=== PATIENT | female | born 1965 | race Caucasian/White ===

== ENCOUNTER 2024-07-25 17:41 | Emergency (ER) | payer SELFPAY ==
--- NOTE | ~2024-07-25 | XR_ITS ---
EXAM: XR hand LT min 3V DATE: 07/25/2024 18:25 HISTORY: HAND TWISTED ON STEERING WHEEL,5TH DIGIT PAIN . COMPARISON: None available. FINDINGS: Osteopenia. No fracture or dislocation. No lytic or blastic lesion. Mild scattered degener ative change. No erosion or periosteal change. Soft tissues within normal limits. IMPRESSION: No acute osseous finding in the left hand. Reviewed, dictated and finalized at location K.
--- OUTSIDE RECORDS SUMMARY | 2024-07-25 17:45 | XMS_ITS | Referral Summary ---
Author Organization [facility] Building A Address [address] [place] [address] [place] [address] Care Team Providers Care Hydrology Technician Name Role Phone Jerry Carroll Primary Care Provider [phone] Kye Oro MD Unavailable [phone] Murray Nava MD Unavailable [phone] Joe Renae Unavailable [phone] Allergies Active Allergy Reactions Criticality Noted Date Comments Amoxicillin Hives Medium Iodinated Contrast Media Hives,Rash Medium Enoxaparin Other (See comments) Low 06/25/2017 red welts Nickel Swelling Medium 06/25/2017 Penicillins Hives,Rash Medium Reaction: Hives, Skin Rash, , Reaction: RASH/HIVES Shrimp Swollen tongue High 06/25/2017 Sulfamethoxazole Hives,Rash Medium Reaction: Hives, Skin Rash, Sulfamethoxazole-Trimethop rim Rash High Reaction: RASH/HIVES, , Tramadol Other (See comments) Low 08/11/2018 Trimethoprim Hives,Rash Reaction: Hives, Skin Rash, Ondansetron Other (See comments) Low 06/25/2017 doesn't work Medications diphenhydrAMINE (BENADRYL) 25 mg capsule take 2 capsule by oral route every 4 - 6 hours as needed 0 0 5 Active gabapentin (NEURONTIN) 300 mg capsuleIndicati ons:took 600 mg last night Take 1 capsule (300 mg total) by mouth 3 (three) times a day Active levothyroxine (SYNTHROID, LEVOTHROID) 100 mcg tablet Take 1 tablet (100 mcg total) by mouth every morning Active estrogens, conjugated, (PREMARIN) 0.625 mg tablet Take 1 tablet (0.625 mg total) by mouth 3 (three) times a week Active niwagrmw-kgyp-z in-folic acid 18-0.4 mg tablet Take 1 tablet by mouth every morning. Active acetaminophen (TYLENOL) 500 mg tablet Take by mouth every 6 (six) hours as needed for pain. Active CHANTIX 1 mg tablet 0 9 Active omeprazole (PriLOSEC) 20 mg capsule Take 1 capsule (20 mg total) by mouth daily Active albuterol HFA (ProAir HFA) 90 mcg/actuation inhalerIndicati ons:Bronchitis Inhale 2 puffs every 4 (four) hours as needed for wheezing or shortness of breath 8.5 g 0 Active prochlorperazin e (COMPAZINE) 10 mg tablet Take 1 tablet (10 mg total) by mouth every 6 (six) hours as needed for nausea or vomiting 30 tablet 1 Active ALPRAZolam (XANAX) 0.5 mg tablet 2 Active glucagon 1 mg kit Active albuterol 1.25 mg/3 mL nebulizer solution 3 Active lisinopriL (PRINIVIL,ZESTR IL) 20 mg tablet Take 1 tablet (20 mg total) by mouth daily 3 Active vitamin B complex capsule Take 1 capsule by mouth daily Active ascorbic acid (vitamin C) 1,000 mg tablet Take 1 tablet (1,000 mg total) by mouth daily Active zinc sulfate 66 mg tablet Take by mouth Active baclofen (LIORESAL) 20 mg tablet Take 1 tablet (20 mg total) by mouth 3 (three) times a day as needed 4 Active dicyclomine (BENTYL) 10 mg capsule TAKE 1 CAPSULE BY MOUTH THREE TIMES DAILY NEEDED 4 Active fluticasone propionate (FLONASE) 50 mcg/actuation nasal spray USE 2 SPRAY(S) IN EACH NOSTRIL ONCE DAILY 4 Active [facility] ranitidine () 150 mg tablet 150 mg by oral route. Active azithromycin (ZITHROMAX) 250 mg tabletIndicatio ns:Upper Respiratory/LUI NT Infection Take 2 tablets the first day, then 1 tablet daily for 4 days. 6 tablet 4 Active Active Problems Problem Noted Date Diagnosed Date S/P cervical spinal fusion 12/04/2022 Cervical myelopathy 11/06/2022 Primary osteoarthritis of right knee 11/13/2020 Overview (11/13/2020): Added automatically from request for surgery [id number] Asthma 02/14/2020 Cholelithiasis with obstruction 02/14/2020 Hiatal hernia 02/14/2020 Pneumonia 02/14/2020 Steatosis of liver 02/14/2020 Type 2 diabetes mellitus wit h hyperglycemia, without long-term current use of insulin 11/21/2017 Assessment & Plan (03/15/2018 11:27 AM DEPLOYMENT ENGINEER): A1c 5.6. Continues with frequent and wide ac/pc excursions with frequent episodes of hypoglycemia. She states that she is only going to take acarbose once daily in am. Agree with eating frequent small amounts of food. Advised follow up with GI and surgeon re: dumping syndrome. In meantime, advised to wear Dexcom at all times. Be sure that low alert is set at 80 and the alert for hypoglycemia is set at 3 mg/dl double arrow in attempt to prevent hypoglycemia more often than having to treat. Assessment & Plan (11/21/2017 6:16 PM CDT): Hba1c was Lab Results Component Value Date HGBA1C 5.5 11/21/2017 today, indicating excellent DM control 1800 calorie, consistent carb diet recommended 30 min daily aerobic and resistance exercise recommended Prevention and treatment of hyypoglcyemia discussed. DEXCOM recommend, due to her frequent hypoglycemia. Dumping syndrome 11/21/2017 Assessment & Plan (11/21/2017 6:07 PM CDT): Causing hypoglycemia Advised on small portion meals, thru the day Avoid carb rich meals, avoid rapid absorption carbs Start Acarbose. Patient has fozia with interior design coordinator next week Chronic obstructive pulmonary disease 03/13/2015 Overview (07/20/2016): Chronic obstructive pulmonary disease, unspecified COPD type Assessment & Plan (07/12/2017 1:02 PM CDT): Previously she has seen Dr. Menon Historical diagnosis of COPD, not in acute exacerbation No PFTs available for review Duonebs q6 as needed Consider starting Spiriva on discharge Assessment & Plan (02/27/2017 11:49 AM DEPLOYMENT ENGINEER): Doing better. Fortunately, Nancy has quit smoking Recs: 1) Complete PFT's 2) Continue PRN albuterol 3) Repeat chest CT in 9 months to followup on mediastinal adenopathy. Pleural effusion 03/13/2015 Overview (07/20/2016): Pleural effusion, left Tobacco dependence syndrome 03/13/2015 Overview (07/20/2016): Tobacco abuse Arthralgia of hip 02/26/2011 Postprocedural pneumothorax Assessment & Plan (07/12/2017 12:58 PM CDT): Resolved Left chest tube removed last night No residual pneumothorax S/P Tommie fundoplication (w ithout gastrostomy tube) procedure Gastroesophageal reflux disease Immunizations Immunization Administration Dates Next Due Influenza, Trivalent, IM (MDV) 01/26/2015 Social History Tobacco Use Types Packs/Day Years Used Date Smoking Tobacco: Former Cigarettes Q uit: 08/2022 Smokeless Tobacco: Never Alcohol Use Standard Drinks/Week Comments Not Currently 0 (1 standard drink = 0.6 oz pur e alcohol) Social Connection and Isolat ion Panel [NHANES] Answer Date Recorded In a typical week, how many times do you talk on the phone with family, friends, or neighbors? More than three times a week 12/05/2022 How often do you get togethe r with friends or relatives? Once a week 12/05/2022 How often do you attend chur ch or presybeterian services? Never 12/05/2022 Do you belong to any clubs o r organizations such as oriental orthodox groups, unions, fraternal or athletic groups, or school groups? No 12/05/2022 How often do you attend meet ings of the clubs or organizations you belong to? Never 12/05/2022 Are you , , di vorced, , never , or living with a partner? 12/05/2022 AUDIT-C Answer Date Recorded Q1: How often do you have a drink containing alcohol? Never 12/04/2022 Q2: How many drinks containi ng alcohol do you have on a typical day when you are drinking? Patient does not drink Q3: How often do you have si x or more drinks on one occasion? Never 12/04/2022 Overall Financial Resource Strain (CARDIA) Answe r Date Recorded How hard is it for you to pa y for the very basics like food, housing, medical care, and heating? Not hard at all 12/05/2022 Hunger Vital Sign Answer Date Recorded Within the past 12 months, y ou worried that your food would run out before you got the money to buy more. Never true 12/06/19 Within the past 12 months, t he food you bought just didn't last and you didn't have money to get more. Never true 12/05/2022 PRAPARE - Transportation Answer Date Re corded Lack of Transportation (Medical) Not on file 12/05/2022 In the past 12 months, has l ack of transportation kept you from meetings, work, or from getting things needed for daily living? No 12/05/2022 Housing Stability Vital Sign Answer Chin e Recorded In the last 12 months, was t here a time when you were not able to pay the mortgage or rent on time? No 12/05/2022 Number of Places Lived in the Last Year Not on f ile 12/05/2022 In the last 12 months, was t here a time when you did not have a steady place to sleep or slept in a halfway (including now)? No 12/05/2022 Personal Safety Answer Date Recorded Have you ever been in or are you currently in a harmful physical or emotional relationship or is someone making you feel afraid or unsafe? 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) Not on file Not on file Not on file Last Filed Vital Signs Vital Sign Reading Time Taken Comments Blood Pressure 104/62 02/06/2024 2:39 PM CDT Pulse 85 02/06/2024 2:39 PM CDT Temperature 36.6 C (97.9 F) 02/06/2024 2:39 PM CDT Respiratory Rate 16 02/06/2024 2:39 PM CDT Oxygen Saturation 95% 02/06/2024 2:39 PM CDT Inhaled Oxygen Concentration - - Weight 64.9 kg (143 lb) 02/06/2024 2:39 PM CDT Height 160 cm (5' 3 ) 02/06/2024 2:39 PM CDT Body Mass Index 25.33 02/06/2024 2:39 PM CDT Plan of Treatment Not on file Medical Devices Implanted Type Area Behaviorist Device Identifier Shelf Expiration Date Model / Serial / Lot [employer] 6195-1-001 Cement Bone Simplex Gentamicin High Viscosity 40gm - [id number] Implanted:Qty: 1 on 11/24/2020 by Kye Oro MD at [facility] Right: Knee [employer] 08/11/2021 6195-1-001 / / [id number] [employer] 6195-1-001 Cement Bone Simplex Gentamicin High Viscosity 40gm - [id number] Implanted:Qty: 1 on 11/24/2020 by Kye Oro MD at [facility] Right: Knee [employer] 08/11/2021 6195-1-001 / / [id number] [employer] [id number] Attune S+ Cement Fix Bearing Knee 3 Baseplate Tibial - [id number] Implanted:Qty: 1 on 11/24/2020 by Kye Oro MD at [facility] Right: Knee [employer] 09/11/2030 [id number] / / [id number] [employer] [id number] Attune Cemented Posterior Stabilize Knee Right 3 Component - [id number] Implanted:Qty: 1 on 11/24/2020 by Kye Oro MD at [facility] Right: Knee [employer] 09/11/2029 [id number] / / [id number] [employer] [id number] Attune 6mm Posterior Stabilize Fix Bearing Knee 3 Insert Tibial - [id number] Implanted:Qty: 1 on 11/24/2020 by Kye Oro MD at [facility] Right: Knee [employer] 01/12/2024 [id number] / / [id number] Musculoskeletal Transplant [id number] 4-30mm Allograft Frozen [id number] Wedge Graft Bone [id number] - [id number] - [id number] Implanted:Qty: 1 on 12/04/2022 by Murray Nava MD at [facility] N/A: Spine Cervical Musculoskeletal Transplant 02/15/2027 [id number] / [id number] / [employer] [id number] Xtend L28 Mm 2 Level Spine; Cervical; Anterior Plate Bone - [id number] Implanted:Qty: 1 on 12/04/2022 by Murray Nava MD at [facility] N/A: Spine Cervical [employer] 161.228 / / [employer] Xtend Od4.2 Mm L14 Mm Variable Angle; Self Tap Spine Screw Bone 161.314 - [id number] Implanted:Qty: 4 on 12/04/2022 by Murray Nava MD at [facility] N/A: Spine Cervical [employer] 161.314 / / Procedures Procedure Name Priority Date/Time Associated Diagnosis Comments HEMOGLOBIN A1C Routine 12/30/2022 10:30 AM CDT EGFR Routine 12/05/2022 6:26 AM CDT LIPID PANEL Routine 05/16/2022 3:41 PM DEPLOYMENT ENGINEER ALBUMIN CREATININE RATIO, URINE Routine 05/16/2022 3:41 PM DEPLOYMENT ENGINEER SCREENING MAMMOGRAM BILATERAL W [place] Schedule Routine, Read Routine (OP Routine) 12/08/2018 5:21 PM CDT Screening mammogram, encounter for SERUM HEPATITIS C AB Routine 02/16/2015 9:14 AM DEPLOYMENT ENGINEER from Last 3 Months or Most Recently Relevant to Health Maintenance Results * Hemoglobin A1c (12/30/2022 10:30 AM CDT) Hgb A1C 5.5 4.0 - 5.6 % [facility] ([place]) Estimated Average Glucose 111 mg/dL [facility] ([place]) Comment: The ADA recommends reporting an estimated Average Glucose (eAG) with all Hemoglobin A1c results using the equation derived from a study of 507 normal and diabetic adults. Minority populations were underrepresented and children were not included. (Diabetes Care 31:1330-7585, 2008). The eAG is not equivalent to a fasting glucose. Blood 12/30/2022 10:3 0 AM CDT 12/30/2022 10:44 AM CDT us Stanley Wright MD LAB BLOOD ORDERABLES Final Re sult [facility] ([place]) 1 [facility] Department [place] [address] * eGFR (12/05/2022 6:26 AM CDT) eGFR 102 mL/min/1. 73 m2 [facility] Comment: Interpretive Data Reference Interval Normal >/= 90 mL/min/1.73m2 Mildly decreased* 60 - 89 mL/min/1.73m2 Mildly to moderately decreased 45 - 59 mL/min/1.73m2 Moderately to severely decreased 30 - 44 mL/min/1.73m2 Severely decreased 15 - 29 mL/min/1.73m2 Kidney Failure < 15 mL/min/1.73m2 *Relative to young adult level Estimated glomerular filtration rate is determined by the 2020 CKD-EPI equation recommended by the National Kidney Foundation (A Unifying Approach to GFR Estimation: Recommendations of the NKF-ASK Task Force on Reassessing the Inclusion of Race in Diagnosing Kidney Disease, JASN 2020). The CKD-EPI equation should not be used for patients with unstable renal function and has not been validated in children and those over 70. Current interpretive data was last reviewed 2021. Blood 12/05/2022 6:26 AM CDT 12/05/2022 7:14 AM CDT us Shayy Smallwood NP LAB BLOOD ORDERABL ES Final Result Performing Organization Address [facility] Co de Phone Number [facility] [address] [facility] Department [place] [address] * Albumin Creatinine Ratio, Urine (05/16/2022 3:41 PM DEPLOYMENT ENGINEER) Albumin Ur <12.0 mg/L [facility] ([place]) Comment: Interpretive Data No reference range established. Current interpretive data was last revised 2018. Testing performed by: [address] [address] Creatinine Ur 48.3 mg/dL [facility] ([place]) Comment: Interpretive Data No reference range established. Current interpretive data was last revised 2018. Testing performed by: [address] [address] Albumin Creatinine Ratio, Ur <25 1 - 29 mg/g [facility] ([place]) Comment:Testing performed by : [address] [address] Urine 05/16/2022 3:41 PM DEPLOYMENT ENGINEER 05/17/2022 9:20 AM DEPLOYMENT ENGINEER us Stanley Wright MD LAB URINE ORDERABLES Final Re sult Performing Organization Address City/[facility]/ZIP Co de Phone Number [facility] ([place]) 1 [facility] Department [place] [address] * Lipid panel (05/16/2022 3:41 PM DEPLOYMENT ENGINEER) Cholesterol 167 30 - 199 mg/dL [facility] ([place]) Comment: Interpretive Data Ages < or = 19 years Acceptable: <170 mg/dL Borderline high: 170-199 mg/dL High: >or= 200 mg/dL Ages > or = 20 years Desirable: <200 mg/dL Borderline high: 200-239 mg/dL High: >or= 240 mg/dL Literature References: 1. Expert Panel on Integrated Guidelines for Cardiovascular Health and Risk Reduction in Children and Adolescents. Pediatrics 2011;128:S213 2. NCEP Expert Panel. Circulation 2004;110:227 Current Interpretive Data was last revised on 2017. Triglycerides 82 <=149 mg/dL [facility] ([place]) Comment: Interpretive Data Ages < or = 9 years Acceptable: <75 mg/dL Borderline high: 75-99 mg/dL High: >or= 100 mg/dL Ages 10 to 20 years Acceptable: <90 mg/dL Borderline high: 90-129 mg/dL High: >or= 130 mg/dL Ages > or = 20 years Desirable: <150 mg/dL Borderline high: 150-199 mg/dL High: 200-499 mg/dL Very high: >or= 499 mg/dL Literature References: 1. Expert Panel on Integrated Guidelines for Cardiovascular Health and Risk Reduction in Children and Adolescents. Pediatrics 2011;128:S213 2. NCEP Expert Panel. Circulation 2004;110:227 Current Interpretive Data was last revised on 2017. HDL 61 >=40 mg/dL [facility]RE[facility] Lopez ([place]) Comment: Interpretive Data Ages < or = 19 years Acceptable: >45 mg/dL Borderline low: 40-45 mg/dL Low: <40 mg/dL Ages > or = 20 years Desirable: >or= 60 mg/dL Low: <40 mg/dL Literature References: 1. Expert Panel on Integrated Guidelines for Cardiovascular Health and Risk Reduction in Children and Adolescents. Pediatrics 2011;128:S213 2. NCEP Expert Panel. Circulation 2003;110:227 Current Interpretive Data was last revised on 2017. LDL, calculated 90 <=129 mg/dL [facility] ([place]) Comment: Interpretive Data Ages < or = 19 years Acceptable: <110 mg/dL Borderline high: 110-129 mg/dL High: >or= 130 mg/dL Ages > or = 20 years Optimal: <100 mg/dL Near optimal: 100-129 mg/dL Borderline high: 130-159 mg/dL High: >160 mg/dL Literature References: 1. Expert Panel on Integrated Guidelines for Cardiovascular Health and Risk Reduction in Children and Adolescents. Pediatrics 2011;128:S213 2. NCEP Expert Panel. Circulation 2003;110:227 Current Interpretive Data was last revised on 2017. Non-HDL Cholesterol 106 mg/dL [facility] ([place]) Comment: Interpretive Data Ages < or = 19 years Acceptable: <120 mg/dL Borderline high: 120-144 mg/dL High: >145 mg/dL Ages > or = 20 years When triglycerides are >200 mg/dL, Non-HDL cholesterol is a secondary target of therapy with treatment goals that are 30 mg/dL greater than the LDL cholesterol target. Literature References: 1. Expert Panel on Integrated Guidelines for Cardiovascular Health and Risk Reduction in Children and Adolescents. Pediatrics 2011;128:S213 2. NCEP Expert Panel. Circulation 2004;110:227 Current Interpretive Data was last revised on 2017. Chol/HDL ratio 3 [facility] ([place]) Blood 05/16/2022 3:41 PM DEPLOYMENT ENGINEER 05/16/2022 4:07 PM DEPLOYMENT ENGINEER us Stanley Wright MD LAB BLOOD ORDERABLES Final Re sult [facility] ([place]) 1 [facility] Department [place] [address] * Screening Mammogram Bilateral W [place] (12/08/2018 5:21 PM CDT) Anatomical Region Laterality Modality Breast Bilateral Mammography 12/09/2018 7:22 AM CDT Addenda Addendum by Maikol Diamond Jr., MD on 12/14/2018 11:49 AM CDT Comparison to previous mammograms at [facility] in [facility] on 05/16/2011 and 11/23/2009 demonstrated a similar pattern of heterogeneously dense parenchyma. Some benign calcifications bilaterally are new since previous mammograms. There are no interval changes suspicious for malignancy. BI-RADS Category 2--benign. Electronically signed by: Maikol Diamond Jr., M.D. Impressions 12/09/2018 7:44 AM CDT 1. NO FINDINGS SUSPICIOUS FOR MALIGNANCY. 2. ANNUAL FOLLOW-UP RECOMMENDED. 3. IF PRIOR MAMMOGRAM IS OBTAINED FOR COMPARISON, AN ADDENDUM REPORT WILL FOLLOW. BI-RADS 2--benign Electronically signed by: Maikol Diamond Jr., M.D. Narrative 12/09/2018 7:44 AM CDT SCREENING MAMMOGRAM BILATERAL W [place]OR HISTORY: screening. Family history of breast cancer (paternal grandmother). Benign left breast biopsy o'clock location. TECHNIQUE: Craniocaudal and mediolateral oblique views of each breast plus exaggerated lateral craniocaudal view of left breast were obtained with bilateral breast tomosynthesis. COMPARISON: None available. Last mammogram in 2013 at [facility] in [facility]; not brought today for comparison. FINDINGS: The breasts are heterogeneously dense. No dominant mass, skin thickening, nipple retraction or suspicious cluster of microcalcifications is seen. Benign calcifications are observed bilaterally. Digital technology was employed plus computer aided detection software (R2) was utilized in interpretation of these images. This facility utilizes a reminder system to notify patient's of yearly mammograms. Csasidy Cuenca MD IMG MAMMO [place] OCEDURES Edited Result - Final * Serum Hepatitis C ab (02/16/2015 9:14 AM DEPLOYMENT ENGINEER) HCV ab Non-Reacti ve Non-Reacti ve HISTORICAL RESULTS Serum 02/16/2015 9:14 AM DEPLOYMENT ENGINEER Historical Provider LAB BLOOD ORDERABLES Oumou corcoran Result HISTORICAL RESULTS from Last 3 Months or Most Recently Relevant to Health Maintenance Insurance [employer] Address: [facility] [address] [place] [address] [employer] [facility] Advance Directives For more information, please contact: [phone] * Full Code (Latest Code Status on File) Date Activated Date Inactivated Comments 12/04/2022 12:30 PM 12/05/2022 9:31 PM * Full Code Date Activated Date Inactivated Comments 08/11/2018 7:01 AM 08/11/2018 2:13 PM * Full Code Date Activated Date Inactivated Comments 07/10/2017 9:53 PM 07/16/2017 4:20 PM * Full Code Date Activated Date Inactivated Comments 05/23/2017 1:24 PM 05/23/2017 5:46 PM Care Teams Hydrology Technician Relationship Specialty Start Date End Date Jerry Carroll PA [address] [place] [address] PCP - General Family Practice 11/13/17 Kye Oro MD [address] [place] [address] Surgeon Orthopedic Surgery 11/24/20 Murray Nava MD [address] [place] [address] Referring Physician Neurosurgery 08/02/22 Joe Renae PA [address] [place] [address] Supervisor Neurosurgery 08/02/22
--- OUTSIDE RECORDS SUMMARY | 2024-07-25 17:45 | XMS_ITS ---
Care Plan - [facility] Created on: July 25, 2024 MILLIE WOOTEN : 1965 Sex: Female Author Organization [facility] Address [address] [place] [address] Phone Care Team Providers Care Coin Machine Operator Name Role Phone JULIA MEJIAS PA-C Primary Care Provider [phone]
--- OUTSIDE RECORDS SUMMARY | 2024-07-25 17:45 | XMS_ITS | Clinical Summary ---
Author Organization [facility] Address [address] [place] [address] Phone Care Team Providers Care Cook Roast Name Role Phone JULIA MEJIAS PA-C Primary Care Provider [phone] Reason for Visit and Chief Complaint The Chief Complaint is: FU IMAGING AND EMG RESULTS Plan of Treatment Pending Tests Order Diagnosis Results Due Ordering P rovider Pain Management CPT - Epidural Steroid Inj Transforaminal, Lumbar or Sacral 1st level Spinal stenosis, lumbar region with neurogenic claudication 10/25/23 MARTY ESCALONA ANP-BC Last Documented On 4 2:19PM ; [facility] Instructions to patient Intervention and counseling on cessation of tobacco use : Patient recieved smoking cessation handout Last Documented On 4 1:16PM ; [facility] Assessments Includes: Assessments from this encounter Findings - 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 [M46.08 - Spinal enthesopathy, sacral and sacrococcygeal region] - Last Documented On 09/25/2023 1:47PM ; [facility] - Lumbar spondylosis with radiculopathy [M47.26 - Other spondylosis with radiculopathy, lumbar region] - Last Documented On 09/25/2023 1:47PM ; [facility] - Lumbar stenosis with neurogenic claudication [M48.062 - Spinal stenosis, lumbar region with neurogenic claudication] - Last Documented On 09/25/2023 1:47PM ; [facility] - Myalgia [M79.18 - Myalgia, other site] - Last Documented On 09/25/2023 1:47PM ; [facility] - Chronic pain syndrome [G89.4 - Chronic pain syndrome] - Last Documented On 09/25/2023 1:47PM ; [facility] Instructions Includes: Instructions from this encounter Instructions to patient Intervention and counseling on cessation of tobacco use : Patient recieved smoking cessation handout Last Documented On 4 1:16PM ; [facility] Medical Equipment - Implanted Devices Includes: Current Devices No Medical Equipment Recorded Medications Includes: Medications discussed during this encounter and other current Medications Current Medications (continue as prescribed) Cyclobenzaprine HCl 10 MG Oral Tablet 09/25/2023 Pro vider: Diagnosis: Last Documented On 09/25/2023 1:16PM By Ruth Ann YOON ; [facility] Vitamin D 50 MCG (1999) Oral Capsule 08/18/2023 P rofredrickder: Diagnosis: Last Documented On 4 11:12AM By Ruth Ann YOON ; [facility] Vitamin C Plus 1000 MG Oral Tablet 08/18/2023 Provid er: Diagnosis: Last Documented On 4 11:11AM By Ruth Ann OYON ; [facility] B Complex Oral Capsule 08/18/2023 Provider: Diagnosis: Last Documented On 4 11:10AM By Ruth Ann YOON ; [facility] Multivitamin Oral Tablet 08/18/2023 Provider: Diagnosis: Last Documented On 4 11:10AM By Ruth Ann YOON ; [facility] Estradiol 1 MG Oral Tablet 08/18/2023 Provider: Diagnosis: TWICE A WEEK Last Documented On 4 11:08AM By Ruth Ann YOON ; [facility] Benadryl Allergy 25 MG Oral Tablet 08/18/2023 Provid er: Diagnosis: Last Documented On 4 11:06AM By Ruth Ann YOON ; [facility] Tylenol Extra Strength 500 MG Oral Tablet 08/18/2023 Provider: Diagnosis: Last Documented On 4 11:07AM By Ruth Ann YOON ; [facility] Ibuprofen 200 MG Oral Tablet 08/18/2023 Provider : Diagnosis: Last Documented On 4 11:07AM By Ruth Ann YOON ; [facility] Adult Aspirin Regimen 81 MG Oral Tablet Delayed Releas e 08/18/2023 Provider: Diagnosis: Last Documented On 4 11:08AM By Ruth Ann YOON ; [facility] Fluticasone Propionate 50 MC G/ACT Nasal Suspension 07/22/2023 Provider: JULIA KAPLAN Diagnosis: Last Documented On 4 11:04AM By Ruth Ann YOON ; [facility] Albuterol Sulfate HFA 108 (9 0 Base) MCG/ACT Inhalation Aerosol Solution 07/22/2023 Provider: JULIA MEJIAS PA-C Diagnosis: Last Documented On 4 11:04AM By Ruth Ann YOON ; [facility] Levothyroxine Sodium 100 MCG Oral Tablet 07/12/2023 Provider: JULIA MEJIAS PA-C Diagnosis: Last Documented On 4 11:04AM By Ruth Ann YOON ; [facility] Lisinopril 40 MG Oral Tablet 04/16/2023 Provider: JULIA MEJIAS PA-C Diagnosis: Last Documented On 4 11:05AM By Ruth Ann YOON ; [facility] Dicyclomine HCl 10 MG Oral Capsule 04/16/2023 Provid er: JULIA MEJIAS PA-C Diagnosis: Last Documented On 4 11:05AM By Ruth Ann YOON ; [facility] Gabapentin 300 MG Oral Capsule 04/15/2023 Provider: JULIA MEJIAS PA-C Diagnosis: Last Documented On 4 11:05AM By Ruth Ann YOON ; [facility] Medications Administered Includes: Administered Medications from this encounter No Administered Medications Recorded Vital Signs Includes: Vital Signs from this encounter Vital Name 09/25/2023 01:12P Blood Pressure Sitting R 126/62 Pulse Rate-Sitting (bpm) 81 Temp-Temporal 96.4 Height (in) 63.75 Weight (lb) 140 Body Mass Index 24.2 Body Surface Area (m2) 1.7 Pain Level 3 Oxygen Saturation (%) 98 Last Documented: On 09/25/2023 1:47PM ; [facility] Results Includes: Results discussed during this encounter No Results Recorded For Specified Dates History of Present Illness Includes: History of Present Illness from this encounter HPI - Allergy list reviewed - Problem list reviewed - Medication reconciliation performed - Medication list reviewed - Prescription Drug Monitoring Program website checked. - Last dose of medication? - Pain is continuous - Pain in PM - Primary pain duration Lower back and bilateral legs - Pain is burning - Pain is shooting - Pain is sharp - Pain is described as tingling - Pain is deep - Pain is stinging - Pain is like pins/needles - Relieved by medication - Relieved by repositioning - Relieved by touch/rub - Pain aggravated getting in/out of car - Pain aggravated lying down - Pain aggravated sitting - Pain aggravated standing - Pain aggravated by walking - Pain aggravated lifting - Neck pain radiating to both sides - Pain radiates in right calf/dyson - Pain radiates in right foot Discussion: Patient returns in follow-up for low back pain with radiculopathy and to review imaging. She describes low back pain with radiating pain and numbness to the entire left lower extremity extending to the foot as well as numbness and tingling in the right foot. Symptoms worsen with standing and walking. She was referred by a surgeon for evaluation prior to surgery. Recent EMG indicates acute upon chronic L5 radiculopathy on the right. MRI the pelvis was also ordered related to findings on lumbar MRI. No acute findings noted. She continues home exercises as tolerated, but this is often painful and not tolerated. We discussed imaging, testing and recommendation of lumbar epidural. She would like to proceed. Questions elicited and answered. Patient is a 58-year-old female referred by neurosurgery for evaluation and treatment of lumbar radiculopathy symptoms. She complains of low back pain with pain, numbness and tingling to the right dyson and calf region extending into the medial foot in great toe. There is also radicular pain to the left lower extremity in a multi-dermatomal pattern. Symptoms have been present for greater than 12 months. She was seen by a chiropractor within the last 6 months, with no change in symptoms. Patient evaluated by neurosurgery. At that time, they recommended treatment of cervical stenosis before any lumbar treatment. She reports near resolution of cervical symptoms. She does have the ongoing lumbar complaints. She has not done physical therapy and questions this overall as very little activity as tolerated. She has had other conservative treatment including anti-inflammatories, activity modification and gabapentin. Currently, she takes gabapentin 600 mg at night. We discussed converting this to pregabalin twice daily for ongoing symptoms. She is hesitant to switch medications at this point. She experienced a fall approximately 2 months ago. She describes her left leg going out and falling towards her but ox. She did lose consciousness at that time. She was evaluated by neurosurgery at follow-up after this fall. X-rays of the cervical, thoracic and lumbar spine were done. An MRI of the lumbar spine was ordered at that time. Lumbar MRI makes note of edema changes in the sacral region and recommends sacral MRI if clinically warranted. She is considerably point tender over the sacrum, more to the left. There is tenderness in the SI joints bilaterally. She does feel symptoms overall increased and changed to some degree after the fall. Recommending x-rays of the sacrum as well as a dedicated MRI of the sacrum to evaluate for sacral fracture. Based on findings, we will then further discuss treatment options. Imaging: All relevant imaging available was personally reviewed with the patient today with the following tests and results noted: MRI L spine May: Schmorl's nodes of inferior endplate at L3. L3-4 through L5-S1 facet joint variable extent stir hyper intense signal can be seen with synovitis. Bilateral facet arthropathy at L2-3. L3-4 disc bulge and small central right neural foraminal disc protrusion with annular fissure. Thickened ligamentum flavum and facet arthropathy and trace facet joint effusion's. Mild spinal canal stenosis. Mild to moderate right and mild left neural foraminal stenosis. Disc bulge was superimposed central through right and left neural foraminal disc protrusion and annular fissure. Thickened ligamentum flavum with facet arthropathy. Mild to moderate spinal canal stenosis. Lateral recess effacement on both sides. Moderate right and mild to moderate left neural foraminal narrowing. Disc and facet arthropathy abutting the L4 nerve roots. L5-S1 disc bulge with bilateral facet arthropathy. Sacrum inferior sacral T-1 hypo intense, stir hyper intense signal new compared to 08/23/22 MRI. Request correlation with point tenderness and need for dedicated sacral MRI as clinically necessary X-rays C-spine, reading with in neurosurgeon note 05/29/23: postsurgical changes of C6 Judi. ectomy with anterior instrument fusion C3-4 and C4-6. Motion at C5-6 with widening and flexion and narrowing of inter-spinous distance and extension. There is a transitional see to-3 degenerative disc disease. Unchanged soft tissue swelling X-ray L spine within neurosurgeon note 05/29/23: mild retro thesis L2 on L3 and L3 on L4 with anterior list thesis of L4 on L5. With flexion, retro thesis is reduced with exacerbation of L4-5 anterolisthesis. With extension minimal no significant change in L2-3 and L3-4 retro thesis. L4-5 anterolisthesis is reduced. Mild multilevel degenerative disc disease. T-spine 05/29/23 within surgeon note: thoracic dextroscoliosis centered at T8-9. Bilateral hip arthroplasty NCV/EMG 09/04/23: abnormal study consistent with subacute on chronic right L5 radiculopathy. MRI pelvis 08/26/23: mild degenerative disc disease in the lower lumbar spine with bilateral neural foraminal narrowing incompletely evaluated Social History Description Last Updated Current smoker 09/25/2023 Last Documented On 4 1:47PM ; [facility] No consumption of alcohol 09/25/2023 Last Documented On 4 1:47PM ; [facility] Not using drugs 09/25/2023 Last Documented On 4 1:47PM ; [facility] Difficulty walking 08/18/2023 Last Documented On 4 1:07PM ; [facility] Smoking packs of cigarettes per day 1.5 08/18/2023 Last Documented On 4 1:07PM ; [facility] Smoking Status Unknown Procedures and Surgical History Includes: Procedures from this encounter Procedures Code Diagnosis Performing Provider Service Location Service Date CLINIC VISIT [id number] Spinal stenosis, lumbar region with neurogenic claudication, Spinal enthesopathy, sacral and sacrococcygeal region, Other spondylosis with radiculopathy, lumbar region, Chronic pain syndrome MARTY ESCALONA ANP-BC [facility] 09/25/2023 Last Documented On 4 2:55PM ; [facility] intervention and counseling on cessation of tobacco use : Patient recieved smoking cessation handout 4000F Last Documented On 4 1:16PM ; [facility] use of tobacco assessment performed 1000F Last Documented On 4 1:16PM ; [facility] review of medications documented 1160F Last Documented On 4 1:16PM ; [facility] assessment of suicide risk performed Last Documented On 4 1:07PM ; [facility] screening for adult depression: impressi on and score five Last Documented On 4 1:07PM ; [facility] standardized depression screening: posit jacob for symptoms Last Documented On 4 1:07PM ; [facility] Clinical summary provided to patient ~ Patient understands and agrees with treatment plan. Questions answered Last Documented On 4 1:07PM ; [facility] SOAPP-R: total score 14 Last Documented On 4 1:07PM ; [facility] Surgical History Last Updated No Pacemaker 09/25/2023 Last Documented On 4 1:47PM ; [facility] Medical History Includes: Medical History addressed during this encounter Description Last Updated No Pain Pump 09/25/2023 Last Documented On 4 1:47PM ; [facility] No Spinal cord stimulator 09/25/2023 Last Documented On 4 1:47PM ; 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 Currently wearing eyeglasses 08/18/2023 Last Documented On 4 1:07PM ; [facility] Moderate to severe pain 08/18/2023 Last Documented On 4 1:07PM ; [facility] Please list all illnesses/co nditions you have been diagnosed with: [place] hernia repaired, dmt2,copd, emphysema, hypothyroid, htn, 08/18/2023 Last Documented On 4 1:07PM ; [facility] Please list all surgeries: P ig skin graft for diaphragmatic, repair of torn diaphragmatic, hysterectomy, appendectomy iraj hip prosthesis, rt knee replacement. rt inguinal hernia repair, appe, abisai, neck surgeryx2 , rt carpule tunnel, 08/18/2023 Last Documented On 4 1:07PM ; [facility] X-rays [facility] 4 Last Documented On 4 1:07PM ; [facility] Family History Includes: Family History addressed during this encounter Description Last Updated Family history [use for free text] 09/24 Last Documented On 4 1:47PM ; [facility] Family history of Bleeding disorder 09/12 Last Documented On 4 1:47PM ; [facility] Family history of kidney disease 024 Last Documented On 4 1:47PM ; [facility] Family history of stroke/paralysis 09/24 Last Documented On 4 1:47PM ; [facility] Fraternal history of family history of i schemic heart disease 09/25/2023 Last Documented On 4 1:47PM ; [facility] Fraternal history of stroke/paralysis Last Documented On 4 1:47PM ; [facility] Maternal history of Arthritis 09/25/2023 Last Documented On 4 1:47PM ; [facility] Other family history , please specify: 0 09/25/2023 Last Documented On 4 1:47PM ; [facility] Paternal history of family history of is chemic heart disease 09/25/2023 Last Documented On 4 1:47PM ; [facility] Paternal history of family history of ki dney disease 09/25/2023 Last Documented On 4 1:47PM ; [facility] Paternal history of stroke/paralysis Last Documented On 4 1:47PM ; [facility] Reported family history of seizures 09/12 Last Documented On 4 1:47PM ; [facility] Sororal history of Arthritis 09/25/2023 Last Documented On 4 1:47PM ; [facility] Sororal history of Bleeding disorder Last Documented On 4 1:47PM ; [facility] Review of Systems Includes: Review of Systems from this encounter Systemic: No systemic symptoms other than noted. Fatigue and recent weight change. Head: No head symptoms other then noted. Headache chronic/recurring. Neck: No neck pain. Otolaryngeal: No otolaryngeal symptoms other than noted. Cardiovascular: No chest pain or discomfort. Palpitations. Pulmonary: No dyspnea. Chronic cough, hemoptysis, and wheezing. Gastrointestinal: Appetite. No nausea. Nausea, abdominal pain, bowel movement frequency has recently changed, and diarrhea throughout the day. No constipation. Genitourinary: No urinary loss of control. Endocrine: Temperature intolerance, muscle weakness, and Weakness. Hematologic: No easy bleeding and no tendency for easy bruising. Musculoskeletal: Back pain, localized soft tissue swelling in the foot, and muscle cramps. Neurological: Dizziness and fainting. No fainting passing out with needles or medical procedures and no motor disturbances. Falls and numbness. Psychological: No psychological symptoms other than noted. Skin: No skin symptoms other than noted. Dry skin. Mental Status Includes: Mental Status from this encounter No Mental Status Recorded Functional Status Includes: Functional Status from this encounter No Functional Status Recorded Physical Exam Includes: Physical Exam from this encounter Allergies Includes: Active Allergies Substance Type Reaction Onset Date Resolved Date Statu s Zofran Allergy 08/18/2023 Active Last Documented On 4 1:16PM ; [facility] traMADol HCl Allergy 08/18/2023 Active Last Documented On 4 1:16PM ; [facility] Sulfamethoxazole-Trimethoprim Allergy 08/18/2023 Active Last Documented On 4 1:16PM ; [facility] SHRIMP Allergy 08/18/2023 Active Last Documented On 4 1:16PM ; [facility] Penicillins Allergy 08/18/2023 Active Last Documented On 4 1:16PM ; [facility] NICKEL Allergy 08/18/2023 Active Last Documented On 4 1:16PM ; [facility] Lovenox Allergy 08/18/2023 Active Last Documented On 4 1:16PM ; [facility] Iodinated contrast media Allergy 08/18/2023 Active Last Documented On 4 1:16PM ; [facility] Amoxicillin Allergy 08/18/2023 Active Last Documented On 4 1:16PM ; [facility] Encounters Encounter Provider Location Date Check-In Time Check-Out Time Diagnosis PAIN MANAGEMENT FOLLOW [facility] 1:09PM 1:41PM Chronic Pain Syndrome,Spinal Stenosis Lumbar with Neurogenic Claudication,Spin al Enthesopathy of Sacral and Sacrococcygeal Region,Spondylosi s with Radiculopathy Lumbar Region,Myalgia , Other Site (M79.18) Insurance Includes: Active Insurance Policies Plan Name Member ID Group # Subscriber Relationship Effect jacob Dates 1 - [employer] [place] [employer] [id number] MILLIE Onofre JE Self Clinical Notes Includes: Clinical Notes from this encounter * Progress note Date Encounter Last Documented by 09/25/2023 PAIN MANAGEMENT FOLLOW UP Last d ocumented on 09/25/2023; 1:47 PM, MARTY BIRD; [facility] Chief Complaint The Chief Complaint is: FU IMAGING AND EMG RESULTS. History of Present Illness - Allergy list reviewed - Problem list reviewed - Medication reconciliation performed - Medication list reviewed - Prescription Drug Monitoring Program website checked. - Last dose of medication? - Pain is continuous - Pain in PM - Primary pain duration Lower back and bilateral legs - Pain is burning - Pain is shooting - Pain is sharp - Pain is described as tingling - Pain is deep - Pain is stinging - Pain is like pins/needles - Relieved by medication - Relieved by repositioning - Relieved by touch/rub - Pain aggravated getting in/out of car - Pain aggravated lying down - Pain aggravated sitting - Pain aggravated standing - Pain aggravated by walking - Pain aggravated lifting - Neck pain radiating to both sides - Pain radiates in right calf/dyson - Pain radiates in right foot Discussion: Patient returns in follow-up for low back pain with radiculopathy and to review imaging. She describes low back pain with radiating pain and numbness to the entire left lower extremity extending to the foot as well as numbness and tingling in the right foot. Symptoms worsen with standing and walking. She was referred by a surgeon for evaluation prior to surgery. Recent EMG indicates acute upon chronic L5 radiculopathy on the right. MRI the pelvis was also ordered related to findings on lumbar MRI. No acute findings noted. She continues home exercises as tolerated, but this is often painful and not tolerated. We discussed imaging, testing and recommendation of lumbar epidural. She would like to proceed. Questions elicited and answered. Patient is a 58-year-old female referred by neurosurgery for evaluation and treatment of lumbar radiculopathy symptoms. She complains of low back pain with pain, numbness and tingling to the right dyson and calf region extending into the medial foot in great toe. There is also radicular pain to the left lower extremity in a multi-dermatomal pattern. Symptoms have been present for greater than 12 months. She was seen by a chiropractor within the last 6 months, with no change in symptoms. Patient evaluated by neurosurgery. At that time, they recommended treatment of cervical stenosis before any lumbar treatment. She reports near resolution of cervical symptoms. She does have the ongoing lumbar complaints. She has not done physical therapy and questions this overall as very little activity as tolerated. She has had other conservative treatment including anti-inflammatories, activity modification and gabapentin. Currently, she takes gabapentin 600 mg at night. We discussed converting this to pregabalin twice daily for ongoing symptoms. She is hesitant to switch medications at this point. She experienced a fall approximately 2 months ago. She describes her left leg going out and falling towards her but ox. She did lose consciousness at that time. She was evaluated by neurosurgery at follow-up after this fall. X-rays of the cervical, thoracic and lumbar spine were done. An MRI of the lumbar spine was ordered at that time. Lumbar MRI makes note of edema changes in the sacral region and recommends sacral MRI if clinically warranted. She is considerably point tender over the sacrum, more to the left. There is tenderness in the SI joints bilaterally. She does feel symptoms overall increased and changed to some degree after the fall. Recommending x-rays of the sacrum as well as a dedicated MRI of the sacrum to evaluate for sacral fracture. Based on findings, we will then further discuss treatment options. Imaging: All relevant imaging available was personally reviewed with the patient today with the following tests and results noted: MRI L spine May: Schmorl's nodes of inferior endplate at L3. L3-4 through L5-S1 facet joint variable extent stir hyper intense signal can be seen with synovitis. Bilateral facet arthropathy at L2-3. L3-4 disc bulge and small central right neural foraminal disc protrusion with annular fissure. Thickened ligamentum flavum and facet arthropathy and trace facet joint effusion's. Mild spinal canal stenosis. Mild to moderate right and mild left neural foraminal stenosis. Disc bulge was superimposed central through right and left neural foraminal disc protrusion and annular fissure. Thickened ligamentum flavum with facet arthropathy. Mild to moderate spinal canal stenosis. Lateral recess effacement on both sides. Moderate right and mild to moderate left neural foraminal narrowing. Disc and facet arthropathy abutting the L4 nerve roots. L5-S1 disc bulge with bilateral facet arthropathy. Sacrum inferior sacral T-1 hypo intense, stir hyper intense signal new compared to 08/23/22 MRI. Request correlation with point tenderness and need for dedicated sacral MRI as clinically necessary X-rays C-spine, reading with in neurosurgeon note 05/29/23: postsurgical changes of C6 Judi. ectomy with anterior instrument fusion C3-4 and C4-6. Motion at C5-6 with widening and flexion and narrowing of inter-spinous distance and extension. There is a transitional see to-3 degenerative disc disease. Unchanged soft tissue swelling X-ray L spine within neurosurgeon note 05/29/23: mild retro thesis L2 on L3 and L3 on L4 with anterior list thesis of L4 on L5. With flexion, retro thesis is reduced with exacerbation of L4-5 anterolisthesis. With extension minimal no significant change in L2-3 and L3-4 retro thesis. L4-5 anterolisthesis is reduced. Mild multilevel degenerative disc disease. T-spine 05/29/23 within surgeon note: thoracic dextroscoliosis centered at T8-9. Bilateral hip arthroplasty NCV/EMG 09/04/23: abnormal study consistent with subacute on chronic right L5 radiculopathy. 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 rt inguinal hernia repair, appe, abisai, neck surgeryx2 , rt carpule tunnel, Medical: Currently wearing eyeglasses and orthopedic history Left Knee Score mild pain Moderate to severe pain. No Spinal cord stimulator and no Pain Pump. Surgical / Procedural: No Pacemaker. Tests: X-rays [facility], [facility] and CT[facility]MRI [facility]. Current Medication - Adult Aspirin Regimen 81 MG Oral Tablet Delayed Release One tablet daily 0 days, 0 refills - Albuterol Sulfate HFA 108 (90 Base) MCG/ACT Inhalation Aerosol Solution as directed 17 days, 0 refills - B Complex Oral Capsule One tablet daily 0 days, 0 refills - Benadryl Allergy 25 MG Oral Tablet One tablet at bed time 0 days, 0 refills - [facility] Ibuprofen 200 MG Oral Tablet 3 twice a day 0 days, 0 refills - Cyclobenzaprine HCl 10 MG Oral Tablet as needed 0 days, 0 refills - Dicyclomine HCl 10 MG Oral Capsule 2 once a day 90 days, 0 refills - Estradiol 1 MG Oral Tablet as directed TWICE A WEEK, 0 days, 0 refills - Fluticasone Propionate 50 MCG/ACT Nasal Suspension as directed 30 days, 0 refills - Gabapentin 300 MG Oral Capsule One tablet at bed time 90 days, 0 refills - Levothyroxine Sodium 100 MCG Oral Tablet One tablet daily 90 days, 0 refills - Lisinopril 40 MG Oral Tablet One tablet daily 90 days, 0 refills - Multivitamin Oral Tablet One tablet daily 0 days, 0 refills - Tylenol Extra Strength 500 MG Oral Tablet 2 three times a day 0 days, 0 refills - Vitamin C Plus 1000 MG Oral Tablet One tablet daily 0 days, 0 refills - Vitamin D 50 MCG (2000 UT) Oral Capsule One tablet daily 0 days, 0 refills Social History Difficulty walking. Tobacco use: Cigarette smoking smoking packs of cigarettes per day 1.5. Alcohol: No consumption of alcohol. Drug Use: Not using drugs. Allergies - Amoxicillin - Iodinated contrast media - Lovenox - NICKEL - Penicillins - SHRIMP - Sulfamethoxazole-Trimethoprim - traMADol HCl - Zofran Family History Stroke/paralysis Other family history , please specify: Reported family history of seizures Kidney disease Bleeding disorder family history [use for free text] Paternal: Stroke/paralysis Ischemic heart disease Kidney disease Maternal: Arthritis Fraternal: Stroke/paralysis Ischemic heart disease Sororal: Arthritis Bleeding disorder Review Of Systems Systemic: No systemic symptoms other than noted. Fatigue and recent weight change. Head: No head symptoms other then noted. Headache chronic/recurring. Neck: No neck pain. Otolaryngeal: No otolaryngeal symptoms other than noted. Cardiovascular: No chest pain or discomfort. Palpitations. Pulmonary: No dyspnea. Chronic cough, hemoptysis, and wheezing. Gastrointestinal: Appetite. No nausea. Nausea, abdominal pain, bowel movement frequency has recently changed, and diarrhea throughout the day. No constipation. Genitourinary: No urinary loss of control. Endocrine: Temperature intolerance, muscle weakness, and Weakness. Hematologic: No easy bleeding and no tendency for easy bruising. Musculoskeletal: Back pain, localized soft tissue swelling in the foot, and muscle cramps. Neurological: Dizziness and fainting. No fainting passing out with needles or medical procedures and no motor disturbances. Falls and numbness. Psychological: No psychological symptoms other than noted. Skin: No skin symptoms other than noted. Dry skin. Physical Findings - Vitals taken 09/25/2023 01:12 pm BP-Sitting R 126/62 mmHg Pulse Rate-Sitting 81 bpm Temp-Temporal 96.4 F Height 63.75 in Weight 140 lbs Body Mass Index 24.2 kg/m2 Pain Level 3 Pain Level Note LOW BACK AND RIGHT FOOT, LEFT HIP 6/10 with activity Oxygen Saturation 98 % Musculoskeletal System: General/bilateral: Musculoskeletal Scales: Value Lumbar oswestry score 60 Psychiatric: Psychiatric: Value PHQ9 score: 5 Constitutional: Well developed. Well nourished. In no acute distress. HEENT: NC/AT. Anicteric. Clear Conjunctiva. PERRLA. CVS: No peripheral edema. Peripheral pulses palpable in all extremities. Pulmonary: Normal chest expansion bilaterally. Spine/MSK: tenderness over sacral region, more to the left. SI joint tenderness bilaterally. Mild lumbar facet tenderness. Positive SLR on the left, causing increased paresthesia symptoms. Gait: Not antalgic. No steppage gait. No Trendelenburg gait. No circumspected gait pattern. Heel walk normal. Toe walk normal. Tandem gait normal. Neuro: Awake. Alert. Oriented x3. DTR's intact in all extremities. DTR's equal in all extremities. Hypoesthesia right L4 dermatome No motor deficit. Psych: No apparent distress. Mood normal. Affect normal. No pain behaviors. Skin: No rash. Normal pigmentation. Normal temperature Tests Educational Testing: Questionnaires PHQ-9: Value SOAPP-R: total score 14 Assessment - 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 [M46.08 - Spinal enthesopathy, sacral and sacrococcygeal region] - Lumbar spondylosis with radiculopathy [M47.26 - Other spondylosis with radiculopathy, lumbar region] - Lumbar stenosis with neurogenic claudication [M48.062 - Spinal stenosis, lumbar region with neurogenic claudication] - Myalgia [M79.18 - Myalgia, other site] - Chronic pain syndrome [G89.4 - Chronic pain syndrome] Therapy - Intervention and counseling on cessation of tobacco use: Patient recieved smoking cessation handout. - Assessment of suicide risk performed - Clinical summary provided to patient Patient understands and agrees with treatment plan. Questions answered. Discussed Based on MRI findings and ongoing point tenderness over the sacral region, recommend dedicated MRI of the sacrum to evaluate for fracture. Will consider lumbar epidural after imaging is complete. Discussed switching gabapentin to pregabalin, patient declines at this time. Follow-up after imaging Plan StartCited - Spinal stenosis, lumbar region with neurogenic claudication Pain Management CPT/Epidural Steroid Inj: Transforaminal, Lumbar or Sacral 1st level Instructions: bilateral L4-5 TFESI EndCited Practice Management Use of tobacco assessment performed Review of medications documented; Standardized depression screening: positive for symptoms and for adult impression and score five. A total of [45 ] minutes were spent on this patient's evaluation, as above, with greater than 50% of this time spent in direct [id number] counseling and coordination of care. Results of this interaction were communicated directly to the patient's referring and/or primary care provider. Multiple documents have been reviewed today in conjunction with her evaluation including online prescription monitoring database, laboratory data, imaging studies, previous specialist provider notes and primary care provider notes. For all patients on acute or chronic opioids, ongoing need for opioid analgesia is assessed at each visit with consideration of discontinuation or wean to lowest effective dose when possible and appropriate. Contents of this document have been edited for correctness, but may be subject to typographical or coil tester errors. Verify all diagnoses, medications, dosages, and patient instructions with patient and/or the originator of this document. Health Reminders - Assess BMI satisfied 09/25/2023. - Assess Tobacco Use satisfied 09/25/2023. - Depression Screening satisfied 09/25/2023. - Follow up plan for Depression Screening satisfied 09/25/2023. - Smoking & Tobacco Cessation Intervention and Counseling satisfied 09/25/2023.
--- OUTSIDE RECORDS SUMMARY | 2024-07-25 17:45 | XMS_ITS | Clinical Summary ---
Author Organization [facility] Address [address] [place] [address] Phone Care Team Providers Care Transport Conductor Name Role Phone JULIA MEJIAS PA-C Primary Care Provider [phone] Reason for Visit and Chief Complaint LEXISCAN CARDIOLITE Plan of Treatment No Plan of Treatment Recorded Assessments Includes: Assessments from this encounter No Assessments Recorded Medical Equipment - Implanted Devices Includes: Current Devices No Medical Equipment Recorded Medications Includes: Medications discussed during this encounter and other current Medications Current Medications (continue as prescribed) Cyclobenzaprine HCl 10 MG Oral Tablet 09/25/2023 Pro vider: Diagnosis: Last Documented On 09/25/2023 1:16PM By Ruth Ann YOON ; [facility] Vitamin D 50 MCG (1999) Oral Capsule 08/18/2023 P rovider: Diagnosis: Last Documented On 4 11:12AM By Ruth Ann YOON ; [facility] Vitamin C Plus 1000 MG Oral Tablet 08/18/2023 Provid er: Diagnosis: Last Documented On 4 11:11AM By Ruth Ann YOON ; [facility] B Complex Oral Capsule 08/18/2023 Provider: Diagnosis: Last Documented On 4 11:10AM By Ruth Ann YOON ; [facility] Multivitamin Oral Tablet 08/18/2023 Provider: Diagnosis: Last Documented On 4 11:10AM By Ruth Ann YOON ; [facility] Estradiol 1 MG Oral Tablet 08/18/2023 Provider: Diagnosis: TWICE A WEEK Last Documented On 4 11:08AM By Ruth Ann YOON ; [facility] Benadryl Allergy 25 MG Oral Tablet 08/18/2023 Provid er: Diagnosis: Last Documented On 4 11:06AM By Ruth Ann YOON ; [facility] Tylenol Extra Strength 500 MG Oral Tablet 08/18/2023 Provider: Diagnosis: Last Documented On 4 11:07AM By Ruth Ann YOON ; [facility] Ibuprofen 200 MG Oral Tablet 08/18/2023 Provider : Diagnosis: Last Documented On 4 11:07AM By Ruth Ann YOON ; [facility] Adult Aspirin Regimen 81 MG Oral Tablet Delayed Releas e 08/18/2023 Provider: Diagnosis: Last Documented On 4 11:08AM By Ruth Ann YOON ; [facility] Fluticasone Propionate 50 MC G/ACT Nasal Suspension 07/22/2023 Provider: JULIA KAPLAN Diagnosis: Last Documented On 4 11:04AM By Ruth Ann YOON ; [facility] Albuterol Sulfate HFA 108 (9 0 Base) MCG/ACT Inhalation Aerosol Solution 07/22/2023 Provider: JULIA MEJIAS PA-C Diagnosis: Last Documented On 4 11:04AM By Ruth Ann YOON ; [facility] Levothyroxine Sodium 100 MCG Oral Tablet 07/12/2023 Provider: JULIA MEJIAS PA-C Diagnosis: Last Documented On 4 11:04AM By Ruth Ann YOON ; [facility] Lisinopril 40 MG Oral Tablet 04/16/2023 Provider: JULIA MEJIAS PA-C Diagnosis: Last Documented On 4 11:05AM By Ruth Ann YOON ; [facility] Dicyclomine HCl 10 MG Oral Capsule 04/16/2023 Provid er: JULIA MEJIAS PA-C Diagnosis: Last Documented On 4 11:05AM By Ruth Ann YOON ; [facility] Gabapentin 300 MG Oral Capsule 04/15/2023 Provider: JULIA MEJIAS PA-C Diagnosis: Last Documented On 4 11:05AM By Ruth Ann YOON ; [facility] Medications Administered Includes: Administered Medications from this encounter No Administered Medications Recorded Results Includes: Results discussed during this encounter No Results Recorded For Specified Dates History of Present Illness Includes: History of Present Illness from this encounter No History of Present Illness Recorded Social History No Social History Recorded - Smoking Status Unknown Medical History Includes: Medical History addressed during this encounter No Medical History Recorded Family History Includes: Family History addressed during this encounter No Family History Recorded Review of Systems Includes: Review of Systems from this encounter No Review of Systems Recorded Mental Status Includes: Mental Status from this encounter No Mental Status Recorded Functional Status Includes: Functional Status from this encounter No Functional Status Recorded Physical Exam Includes: Physical Exam from this encounter No Physical Exam Recorded Allergies Includes: Active Allergies Substance Type Reaction Onset Date Resolved Date Statu s Zofran Allergy 08/18/2023 Active Last Documented On 4 1:16PM ; [facility] traMADol HCl Allergy 08/18/2023 Active Last Documented On 4 1:16PM ; [facility] Sulfamethoxazole-Trimethoprim Allergy 08/18/2023 Active Last Documented On 4 1:16PM ; [facility] SHRIMP Allergy 08/18/2023 Active Last Documented On 4 1:16PM ; [facility] Penicillins Allergy 08/18/2023 Active Last Documented On 4 1:16PM ; [facility] NICKEL Allergy 08/18/2023 Active Last Documented On 4 1:16PM ; [facility] Lovenox Allergy 08/18/2023 Active Last Documented On 4 1:16PM ; [facility] Iodinated contrast media Allergy 08/18/2023 Active Last Documented On 4 1:16PM ; [facility] Amoxicillin Allergy 08/18/2023 Active Last Documented On 4 1:16PM ; [facility] Encounters Encounter Provider Location Date Check-In Time Check-Out Time Diagnosis LEXISCAN CARDIOLITE JASMIN HERRERA MD [facility] 03/04/20 17 9:29AM 12:15PM Insurance Includes: Active Insurance Policies Plan Name Member ID Group # Subscriber Relationship Effect [id number] Dates 1 - [employer] [facility] [id number] MILLIE WOOTEN Self Clinical Notes Includes: Clinical Notes from this encounter No Clinical Notes Recorded
--- OUTSIDE RECORDS SUMMARY | 2024-07-25 17:45 | XMS_ITS | Clinical Summary ---
Author Organization [facility] Building A Address [address] [place] [address] [place] [address] Care Team Providers Care Human Resources Project Coordinator Name Role Phone Jerry Carroll Primary Care Provider [phone] Kye Oro MD Unavailable [phone] Murray Nava MD Unavailable [phone] Joe Renae Unavailable [phone] Allergies Active Allergy Reactions Criticality Noted Date [...] mouth 3 (three) times a week Active rsopnrgo-meqf-g in-folic acid 18-0.4 mg tablet Take 1 [...] IN EACH NOSTRIL ONCE DAILY 4 Active COUNT INCLUDES THE [facility] ranitidine () 150 mg tablet 150 [...] (11/13/2020): Added automatically from request for surgery [id number] Asthma 02/14/2020 Cholelithiasis with obstruction 02/14/2020 Hiatal hernia 02/14/2020 Pneumonia 02/14/2020 Steatosis of liver 02/14/2020 Type 2 diabetes mellitus wit h hyperglycemia, without long-term current use of insulin 11/21/2017 Assessment & Plan (03/15/2018 11:27 AM BREAK OUT WORKER): A1c 5.6. Continues with frequent and wide [...] carbs Start Acarbose. Patient has fozia with spring clipper next week Chronic obstructive pulmonary disease 03/13/2015 Overview (07/20/2016): Chronic obstructive pulmonary disease, unspecified COPD type Assessment & Plan (07/12/2017 1:02 PM CDT): Previously she has seen Dr. Menon Historical diagnosis of COPD, not in acute exacerbation No PFTs available for review Duonebs q6 as needed Consider starting Spiriva on discharge Assessment & Plan (02/27/2017 11:49 AM BREAK OUT WORKER): Doing better. Fortunately, Nancy has quit smoking [...] removed last night No residual pneumothorax S/P Lauren fundoplication (w ithout gastrostomy tube) procedure Gastroesophageal reflux disease Immunizations Immunization Administration Dates Next Due Influenza, Trivalent, IM (MDV) 01/26/2015 Surgical History Surgery Date Site/Laterality Comments TOTAL HIP ARTHROPLASTY LAUREN FUNDOPLICATION NECK SURGERY CHOLECYSTECTOMY WRIST SURGERY APPENDECTOMY INGUINAL HERNIA REPAIR TOTAL ABDOMINAL HYSTERECTOMY 04/14/1993 - 04/13/1994 For cervical cancer, possible uterine cancer & ruptured tube. No XRT. At [facility]. LEFT OOPHORECTOMY 04/14/1994 - 04/13/1995 Laparotomy for cysts and a large benign tumor. RIGHT OOPHORECTOMY 04/14/2008 - 04/13/2009 L/S right oophorectomy for 5 cysts (benign) VULVA / PERINEUM BIOPSY 04/14/2016 - 04/13/2017 Right SISSY per patient. In-office horrible procedure (11/20/18, Dr. RYAN discussed OPS if future excision needed). OOPHORECTOMY BREAST BIOPSY Left benign KNEE ARTHROPLASTY Right Medical History Medical History Date Comments Chronic pain Hypertension Asthma COPD (chronic obstructive pulmonary disease) (HC C) Chronic diarrhea Type 2 diabetes mellitus (HCC) Hypothyroidism Uterine cancer (HCC) Cervical cancer (HCC) Gastroesophageal reflux disease Pleural effusion Smoking PONV (postoperative nausea and vomiting) S/P cervical spinal fusion 12/04/2022 Family History Medical History Relation Name Comments Breast cancer Paternal Grandmother Uterine cancer Sister Relation Name Status Comments Paternal Grandmother Sister Social History Tobacco Use Types Packs/Day Years [...] 12/05/2022 How often do you attend [employer] or yarsanism services? Never 12/05/2022 Do you belong to any clubs o r organizations such as christianity groups, unions, fraternal or athletic groups, or [...] place to sleep or slept in a chcf (including now)? No 12/05/2022 Personal Safety Answer Date Recorded Have you ever been in or are you currently in a harmful physical or emotional relationship or is someone making you feel afraid or unsafe? 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 Last Filed Vital Signs Vital Sign Reading [...] 02/06/2024 2:39 PM CDT Plan of Treatment Health Maintenance Due Date Last Done Comments Colon Cancer Screening-Colonoscopy 1965 Dilated Eye Exam 1965 Foot Exam 1965 DTaP/Tdap/Td Vaccine (1 - Tdap) 1976 Hepatitis B Screening 1983 Pneumococcal vaccine <65 (1 of 2 - PCV) 1984 Zoster Vaccine (1 of 2) 2015 Depression Screening 11/21/2018 11/21/2017 Regular Well Visit/Exam 18-64 11/21/2019 11/20/2018 Breast Cancer Screening-Mammogram 12/15/2019 12/14/2018, 12/09/2018, 12/08/2018, Additional history exists Albumin Creatinine Ratio, Urine 05/16/2023 05/16/2022, 01/31/2021, 06/22/2020, Additional history exists Lipid Panel 05/16/2023 05/16/2022, 01/13, 06/22/2020, Additional history exists Hemoglobin A1C 06/30/2023 12/30/2022, 05, 05/16/2022, Additional history exists eGFR 12/06/2023 12/05/2022, 0812/2022, 07/10/2022, Additional history exists Influenza Vaccine (#1) 2023 7, 02/01/2015, 01/26/2015 Hepatitis C Screening Completed 02/16/2015 Medical Devices Implanted Type Area Parent Coach Device Identifier Shelf Expiration Date Model / Serial / Lot [employer] 6195-1-001 Cement Bone Simplex Gentamicin High Viscosity 40gm - [id number] Implanted:Qty: 1 on 11/24/2020 by Kye Oro MD at [facility] Right: Knee [employer] 08/11/2021 6195-1-001 / / [id number] [employer] 6195-1-001 Cement Bone Simplex Gentamicin High Viscosity 40gm - [id number] Implanted:Qty: 1 on 11/24/2020 by Kye Oro MD at [facility] Right: Knee [employer] 08/11/2021 6195-1-001 / / [id number] [employer] [id number] Attune S+ Cement Fix Bearing Knee 3 Baseplate Tibial - [id number] Implanted:Qty: 1 on 11/24/2020 by Kye Oro MD at [facility] Right: Knee [employer] 09/11/2030 [id number] / / [id number] [employer] [id number] Attune Cemented Posterior Stabilize Knee Right 3 Component - [id number] Implanted:Qty: 1 on 11/24/2020 by Kye Oro MD at [facility] Right: Knee [employer] 09/11/2029 [id number] / / [id number] [employer] [id number] Attune 6mm Posterior Stabilize Fix Bearing Knee 3 Insert Tibial - [id number] Implanted:Qty: 1 on 11/24/2020 by Kye Oro MD at [facility] Right: Knee [employer] 01/12/2024 [id number] / / [id number] Musculoskeletal Transplant [id number] 4-30mm Allograft Frozen [id number] Wedge Graft Bone [id number] - [id number] - [id number] Implanted:Qty: 1 on 12/04/2022 by Murray Nava MD at [facility] N/A: Spine Cervical Musculoskeletal Transplant 02/15/2027 [id number] / [id number] / [employer] [id number] Xtend L28 Mm 2 Level Spine; Cervical; Anterior Plate Bone - [id number] Implanted:Qty: 1 on 12/04/2022 by Murray Nava MD at [facility] N/A: Spine Cervical [employer] 161.228 / / [employer] Xtend Od4.2 Mm L14 Mm Variable Angle; Self Tap Spine Screw Bone 161.314 - [id number] Implanted:Qty: 4 on 12/04/2022 by Murray Nava MD at [facility] N/A: Spine Cervical [employer] 161.314 / / Procedures Procedure Name Priority Date/Time Associated Diagnosis Comments HEMOGLOBIN A1C Routine 12/30/2022 10:30 AM CDT EGFR Routine 12/05/2022 6:26 AM CDT LIPID PANEL Routine 05/16/2022 3:41 PM BREAK OUT WORKER ALBUMIN CREATININE RATIO, URINE Routine 05/16/2022 3:41 PM BREAK OUT WORKER SCREENING MAMMOGRAM BILATERAL W SALVADOR Schedule Routine, Read Routine (OP Routine) 12/08/2018 5:21 PM CDT Screening mammogram, encounter for SERUM HEPATITIS C AB Routine 02/16/2015 9:14 AM BREAK OUT WORKER from Last 3 Months or Most Recently Relevant to Health Maintenance Results * Hemoglobin A1c (12/30/2022 10:30 AM CDT) Hgb A1C 5.5 4.0 - 5.6 % ANDREW PRINCE) Estimated Average Glucose 111 mg/dL ANDREW MONTGOMERY (JUDIE) Comment: The ADA recommends reporting an estimated Average Glucose (eAG) with all Hemoglobin A1c results using the equation derived from a study of 507 normal and diabetic adults. Minority populations were underrepresented and children were not included. (Diabetes Care 31:3024-0359, 2008). The eAG is not equivalent to a fasting glucose. Blood 12/30/2022 10:3 0 AM CDT 12/30/2022 10:44 AM CDT us Stanley Wright MD LAB BLOOD ORDERABLES Final Re sult ANDREW PRINCE) 1 [facility] Department [place] [address] * eGFR (12/05/2022 6:26 AM CDT) eGFR 102 mL/min/1. 73 m2 [facility] Comment: Interpretive Data Reference Interval Normal >/= [...] 6:26 AM CDT 12/05/2022 7:14 AM CDT Shayy Smallwood NP LAB BLOOD ORDERABL ES Final Result [facility] [address] [facility] Department [place] [address] * Albumin Creatinine Ratio, Urine (05/16/2022 3:41 PM BREAK OUT WORKER) Albumin Ur <12.0 mg/L [facility] (JUDIE) Comment: Interpretive Data No reference range established. Current interpretive data was last revised 2018. Testing performed by: [facility], [address] [place] [address], [place]., [address] Creatinine Ur 48.3 mg/dL [facility] (JUDIE) Comment: Interpretive Data No reference range established. Current interpretive data was last revised 2018. Testing performed by: [facility], [address] [place] [address]., [address] Albumin Creatinine Ratio, Ur <25 1 - 29 mg/g ANDREW MONTGOMERY (JUDIE) Comment:Testing performed by : [facility], [address] [place] [address], [place]., [address] Urine 05/16/2022 3:41 PM BREAK OUT WORKER 05/17/2022 9:20 AM BREAK OUT WORKER Stanley Wright MD LAB URINE ORDERABLES Final Re sult [facility] MONTGOMERY (JUDIE) 1 [facility] Department [place] [address] * Lipid panel (05/16/2022 3:41 PM BREAK OUT WORKER) Cholesterol 167 30 - 199 mg/dL [facility] MONTGOMERY (JUDIE) Comment: Interpretive Data [...] on 2017. HDL 61 >=40 mg/dL [facility] ARREOLA [facility] (JUDIE) Comment: Interpretive Data Ages < or [...] 2017. Non-HDL Cholesterol 106 mg/dL [facility] MONTGOMERY (JUDIE) Comment: Interpretive Data [...] on 2017. Chol/HDL ratio 3 JULEE [facility]TG[facility] (JUDIE) Blood 05/16/2022 3:41 PM BREAK OUT WORKER 05/16/2022 4:07 PM BREAK OUT WORKER us Stanley Wright MD LAB BLOOD ORDERABLES Final Re sult [facility]RE[facility] MONTGOMERY (JUDIE) 1 [facility] Department [place] [address] * Screening Mammogram Bilateral W Salvador (12/08/2018 5:21 PM CDT) Anatomical Region Laterality Modality Breast Bilateral Mammography 12/09/2018 7:22 AM CDT Addenda Addendum by Maikol Diamond Jr., MD on 12/14/2018 11:49 AM CDT Comparison to previous mammograms at [facility] in [facility] on 05/16/2011 and 11/23/2009 demonstrated a [...] None available. Last mammogram in 2013 at [facility] in [facility]; not brought today for comparison. FINDINGS: The breasts are heterogeneously dense. No dominant mass, skin thickening, nipple retraction or suspicious cluster of microcalcifications is seen. Benign calcifications are observed bilaterally. Digital technology was employed plus computer aided detection software (R2) was utilized in interpretation of these images. This facility utilizes a reminder system to notify patient's of yearly mammograms. Cassidy Cuenca MD IMG MAMMO [place] OCEDURES Edited Result - Final * Serum Hepatitis C ab (02/16/2015 9:14 AM BREAK OUT WORKER) HCV ab Non-Reacti ve Non-Reacti ve HISTORICAL RESULTS Serum 02/16/2015 9:14 AM BREAK OUT WORKER us Historical Provider LAB BLOOD ORDERABLES Oumou corcoran Result HISTORICAL RESULTS from Last 3 Months or Most Recently Relevant to Health Maintenance Insurance [employer] Address[facility] [id number] [place] [address] [facility] [employer] [facility] Advance Directives For more information, please contact: [phone] * Full Code (Latest Code Status on File) Date Activated Date Inactivated Comments 12/04/2022 12:30 PM 12/05/2022 9:31 PM * Full Code Date Activated Date Inactivated Comments 08/11/2018 7:01 AM 08/11/2018 2:13 PM * Full Code Date Activated Date Inactivated Comments 07/10/2017 9:53 PM 07/16/2017 4:20 PM * Full Code Date Activated Date Inactivated Comments 05/23/2017 1:24 PM 05/23/2017 5:46 PM Care Teams Human Resources Project Coordinator Relationship Specialty Start Date End Date Jerry Carroll PA [address] [place] [address] PCP - General Family Practice 11/13/17 Kye Oro MD [address] [place] [address] Surgeon Orthopedic Surgery 11/24/20 Murray Nava MD [address] [place] [address] Referring Physician Neurosurgery 08/02/22 Joe Renae PA [address] [place], [place] [address] Physician Tripe Finisher Neurosurgery 08/02/22
--- OUTSIDE RECORDS SUMMARY | 2024-07-25 17:46 | XMS_ITS | Clinical Summary ---
Author Organization [facility] Address [address] [place] [address] Phone Care Team Providers Care Hair Dryer Name Role Phone JULIA MEJIAS PA-C Primary Care Provider Reason for Visit and Chief Complaint CHECK UP Plan of Treatment No Plan of Treatment [...] 09/25/2023 1:16PM By Ruth Ann YOON ; [facility] Vitamin D 50 MCG (1999) Oral Capsule 08/18/2023 P rovider: Diagnosis: Last Documented On 4 11:12AM By Ruth Ann YOON ; [facility] Vitamin C Plus 1000 MG Oral Tablet 08/18/2023 Provid er: Diagnosis: Last Documented On 4 11:11AM By Ruth Ann YOON ; [facility] B Complex Oral Capsule 08/18/2023 Provider: Diagnosis: Last Documented On 4 11:10AM By Ruth Ann YOON ; [facility] Multivitamin Oral Tablet 08/18/2023 Provider: Diagnosis: Last Documented On 4 11:10AM By Ruth Ann YOON ; [facility] Estradiol 1 MG Oral Tablet 08/18/2023 Provider: Diagnosis: TWICE A WEEK Last Documented On 4 11:08AM By Ruth Ann YOON ; [facility] Benadryl Allergy 25 MG Oral Tablet 08/18/2023 Provid er: Diagnosis: Last Documented On 4 11:06AM By Ruth Ann YOON ; [facility] Tylenol Extra Strength 500 MG Oral Tablet 08/18/2023 Provider: Diagnosis: Last Documented On 4 11:07AM By Ruth Ann YOON ; [facility] Ibuprofen 200 MG Oral Tablet 08/18/2023 Provider : Diagnosis: Last Documented On 4 11:07AM By Ruth Ann YOON ; [facility] Adult Aspirin Regimen 81 MG Oral Tablet Delayed Releas e 08/18/2023 Provider: Diagnosis: Last Documented On 4 11:08AM By Ruth Ann YOON ; [facility] Fluticasone Propionate 50 MC G/ACT Nasal Suspension 07/22/2023 Provider: JULIA KAPLAN Diagnosis: Last Documented On 4 11:04AM By Ruth Ann YOON ; [facility] Albuterol Sulfate HFA 108 (9 0 Base) MCG/ACT Inhalation Aerosol Solution 07/22/2023 Provider: JULIA MEJIAS PA-C Diagnosis: Last Documented On 4 11:04AM By Ruth Ann YOON ; [facility] Levothyroxine Sodium 100 MCG Oral Tablet 07/12/2023 Provider: JULIA MEJIAS PA-C Diagnosis: Last Documented On 4 11:04AM By Ruth Ann YOON ; [facility] Lisinopril 40 MG Oral Tablet 04/16/2023 Provider: JULIA MEJIAS PA-C Diagnosis: Last Documented On 4 11:05AM By Ruth Ann YOON ; [facility] Dicyclomine HCl 10 MG Oral Capsule 04/16/2023 Provid er: JULIA MEJIAS PA-C Diagnosis: Last Documented On 4 11:05AM By Ruth Ann YOON ; [facility] Gabapentin 300 MG Oral Capsule 04/15/2023 Provider: JULIA MEJIAS PA-C Diagnosis: Last Documented On 4 11:05AM By Ruth Ann YOON ; [facility] Medications Administered Includes: Administered Medications from [...] Active Last Documented On 4 1:16PM ; [facility] traMADol HCl Allergy 08/18/2023 Active Last Documented On 4 1:16PM ; [facility] Sulfamethoxazole-Trimethoprim Allergy 08/18/2023 Active Last Documented On 4 1:16PM ; [facility] SHRIMP Allergy 08/18/2023 Active Last Documented On 4 1:16PM ; [facility] Penicillins Allergy 08/18/2023 Active Last Documented On 4 1:16PM ; [facility] NICKEL Allergy 08/18/2023 Active Last Documented On 4 1:16PM ; [facility] Lovenox Allergy 08/18/2023 Active Last Documented On 4 1:16PM ; [facility] Iodinated contrast media Allergy 08/18/2023 Active Last Documented On 4 1:16PM ; [facility] Amoxicillin Allergy 08/18/2023 Active Last Documented On 4 1:16PM ; [facility] Encounters Encounter Provider Location Date Check-In Time Check-Out Time Diagnosis CHECK UP CANDIDO LEONARD [facility]- 06/10/2017 2:41PM 3:21PM Insurance Includes: Active Insurance Policies Plan Name Member ID Group # Subscriber Relationship Effect jacob Dates 1 - AETNA [facility] HEALTH [id number] MILLIE WOOTEN Self Clinical Notes Includes: Clinical Notes from this encounter No Clinical Notes Recorded
--- OUTSIDE RECORDS SUMMARY | 2024-07-25 17:46 | XMS_ITS | Continuity of Care Document ---
Author Organization [facility] Address [address] [place] [address] Phone Care Team Providers Care Manager Adult Name Role Phone Camden YANES, Memo Unavailable Unavailable Advance Directives Directive Yes / No Effective Date File Name No Information Encounters Encounter Description Practice Location Reason(s) For Visit Diagnoses Date Provider Providers Copied on Encounter [facility], [address], [place], [place], [id number], tel:[phone] [facility] No Information Camden Hampton. [address] [place], [place], [id number], [place]. tel:[phone] Referring Provider: Chicho Duke, [address], [place], [address]. tel:[phone] Family History Family Member Type Diagnosis Age At Onset No Information Payers Payer name Insurance type Covered constitution party ID Authoralvaa connor(s) ERVINHER REYES [id number] Social History Type Description Quantity Date Captured Comments Sex Female Smoking Status No Information Chief Complaint And Reason For Visit No Information Reason For Referral Reason For Referral No Information History Of Present Illness Encounter Date Complaint History Of Prese nt Illness No Information Functional Status Date Functional Assessmen t No Information Instructions Date Instruction Additional Infor mation No Information Assessments Type Assessment Date No Information Patient Care Teams Name Effective Dates (start - stop) Status Members No Information
--- OUTSIDE RECORDS SUMMARY | 2024-07-25 17:46 | XMS_ITS | Encounter Summary ---
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 ([facility]) (Primary Dx); Dumping syndrome Social History Tobacco Use Types Packs/Day Years Used Date Smoking Tobacco: Former Smokeless Tobacco: Never Alcohol Use Standard Drinks/Week Comments No 0 (1 standard drink = 0.6 oz pur e alcohol) Comments No Sex and Gender Information Value Date Recorded Sex Assigned at Not on file Legal Sex Female 3:46 AM CLIMBING GUIDE Gender Identity Not on file Sexual Orientation Not on file documented as of this encounter Plan of Treatment Not on file documented as of this encounter Visit Diagnoses Diagnosis Type 2 diabetes mellitus with complication, unspecified whether 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 02/13/2020 02/13/2020 02/27/2020 3:0 6 AM CLIMBING GUIDE COVID: Suspected 02/14/2020 02/14/2020 02/14/2020 12:38 PM CLIMBING GUIDE COVID: Suspected 02/22/2020 02/22/2020 02/24/2020 1:35 AM CLIMBING GUIDE COVID: Suspected 04/11/2022 04/11/2022 04/12/2022 3:05 AM CLIMBING GUIDE COVID: Suspected 04/11/2022 04/11/2022 04/12/2022 5:38 AM CLIMBING GUIDE documented as of this encounter Care Teams Production Controller Relationship Specialty Start Date End Date Jerry Carroll PA [address] [place] [address] PCP - General Family Practice 11/13/17 Kye Oro MD [address] [place] [address] Surgeon Orthopedic Surgery 11/24/20 Murray Nava MD [address] [place] [address] [place] [address] Referring Physician Neurosurgery 08/02/22 Joe Renae PA [address] [place] [address] [place], [place] [id number] Physician Record Center Coordinator Neurosurgery 08/02/22 documented as of this encounter
--- OUTSIDE RECORDS SUMMARY | 2024-07-25 17:46 | XMS_ITS | Clinical Summary ---
Author Organization [facility] Address [address] [place] [address] Phone Care Team Providers Care Subway Guard Name Role Phone JULIA MEJIAS PA-C Primary Care Provider Reason for Visit and Chief Complaint 1 MONTH CHECK Plan of Treatment No Plan of Treatment [...] 09/25/2023 1:16PM By Ruth Ann YOON ; [facility] Vitamin D 50 MCG (1999) Oral Capsule 08/18/2023 P rovider: Diagnosis: Last Documented On 4 11:12AM By Ruth Ann YOON ; [facility] Vitamin C Plus 1000 MG Oral Tablet 08/18/2023 Provid er: Diagnosis: Last Documented On 4 11:11AM By Ruth Ann YOON ; [facility] B Complex Oral Capsule 08/18/2023 Provider: Diagnosis: Last Documented On 4 11:10AM By Ruth Ann YOON ; [facility] Multivitamin Oral Tablet 08/18/2023 Provider: Diagnosis: Last Documented On 4 11:10AM By Ruth Ann YOON ; [facility] Estradiol 1 MG Oral Tablet 08/18/2023 Provider: Diagnosis: TWICE A WEEK Last Documented On 4 11:08AM By Ruth Ann YOON ; [facility] Benadryl Allergy 25 MG Oral Tablet 08/18/2023 Provid er: Diagnosis: Last Documented On 4 11:06AM By Ruth Ann YOON ; [facility] Tylenol Extra Strength 500 MG Oral Tablet 08/18/2023 Provider: Diagnosis: Last Documented On 4 11:07AM By Ruth Ann YOON ; [facility] Ibuprofen 200 MG Oral Tablet 08/18/2023 Provider : Diagnosis: Last Documented On 4 11:07AM By Ruth Ann YOON ; [facility] Adult Aspirin Regimen 81 MG Oral Tablet Delayed Releas e 08/18/2023 Provider: Diagnosis: Last Documented On 4 11:08AM By Ruth Ann YOON ; [facility] Fluticasone Propionate 50 MC G/ACT Nasal Suspension 07/22/2023 Provider: JULIA KAPLAN Diagnosis: Last Documented On 4 11:04AM By Ruth Ann YOON ; [facility] Albuterol Sulfate HFA 108 (9 0 Base) MCG/ACT Inhalation Aerosol Solution 07/22/2023 Provider: JULIA MEJIAS PA-C Diagnosis: Last Documented On 4 11:04AM By Ruth Ann YOON ; [facility] Levothyroxine Sodium 100 MCG Oral Tablet 07/12/2023 Provider: JULIA MEJIAS PA-C Diagnosis: Last Documented On 4 11:04AM By Ruth Ann YOON ; [facility] Lisinopril 40 MG Oral Tablet 04/16/2023 Provider: JULIA MEJIAS PA-C Diagnosis: Last Documented On 4 11:05AM By Ruth Ann YOON ; [facility] Dicyclomine HCl 10 MG Oral Capsule 04/16/2023 Provid er: JULIA MEJIAS PA-C Diagnosis: Last Documented On 4 11:05AM By Ruth Ann YOON ; [facility] Gabapentin 300 MG Oral Capsule 04/15/2023 Provider: JULIA MEJIAS PA-C Diagnosis: Last Documented On 4 11:05AM By Ruth Ann YOON ; [facility] Medications Administered Includes: Administered Medications from this [...] Active Last Documented On 4 1:16PM ; [facility] traMADol HCl Allergy 08/18/2023 Active Last Documented On 4 1:16PM ; [facility] Sulfamethoxazole-Trimethoprim Allergy 08/18/2023 Active Last Documented On 4 1:16PM ; [facility] SHRIMP Allergy 08/18/2023 Active Last Documented On 4 1:16PM ; [facility] Penicillins Allergy 08/18/2023 Active Last Documented On 4 1:16PM ; [facility] NICKEL Allergy 08/18/2023 Active Last Documented On 4 1:16PM ; [facility] Lovenox Allergy 08/18/2023 Active Last Documented On 4 1:16PM ; [facility] Iodinated contrast media Allergy 08/18/2023 Active Last Documented On 4 1:16PM ; [facility] Amoxicillin Allergy 08/18/2023 Active Last Documented On 4 1:16PM ; [facility] Insurance Includes: Active Insurance Policies Plan Name Member ID Group # Subscriber Relationship Effect jacob Dates 1 - [employer] [facility] [id number] MILLIE Metz Clinical Notes Includes: Clinical Notes from this encounter No Clinical Notes Recorded
--- OUTSIDE RECORDS SUMMARY | 2024-07-25 17:46 | XMS_ITS | Clinical Summary ---
Author Organization [facility] Address [address] [place] [address] Phone Care Team Providers Care Wellness Manager Name Role Phone VivianvinayJerry Ishmael JAQUEZ Primary Care Provider [phone] Social History Tobacco Use Types Packs/Day Years Used Date Smoking Tobacco: Never Assessed Comments Unknown Sex and Gender Information Value Date Recorded Sex Assigned at Not on file Legal Sex Female 10:45 PM CDT Gender Identity Not on file Sexual Orientation Not on file Plan of Treatment Health Maintenance Due Date Last Done Comments Hepatitis C Virus (HCV) Screening 1965 TdaP Immunization 1965 Hepatitis B Immunization (1 of 3 - 19+ 3-dose series) 1984 Pap Smear 1986 Cervical Cancer Screening (CCS) 1995 HPV/Cotest 1995 Colonoscopy 2010 Colorectal Cancer Screening 2010 Cologuard 2015 Immunochemical Fecal Occult Blood 2015 Pneumococcal Immunization (5 0+ years) (1 of 1 - PCV) 2015 Zoster Immunization (1 of 2) 2015 Mammogram 12/09/2019 12/08/2018 Influenza Immunization (#1) 12/14/202302/13, 02/01/2015, 01/26/2015 SARS-COV-2 Immunization (2023- season) 2023 Respiratory Syncytial Virus (RSV) Immunization (Adult) (1 - 1-dose 75+ series) 2040 Meningococcal Immunization (ACWY) Aged Out No longer eligible b ased on patient's age to complete this topic Rotavirus Immunization Aged Out No lo nger eligible based on patient's age to complete this topic Insurance MEDICAID [employer]ETNA [facility] Care Teams Wellness Manager Relationship Specialty Start Date End Date Jerry Carroll, [address] [place] [address] PCP - General Physician Machining Manager 08/20/23
--- OUTSIDE RECORDS SUMMARY | 2024-07-25 17:46 | XMS_ITS | Continuity of Care Document ---
Author Organization [facility] Address [address] [place] [address] [place] [address] Phone Care Team Providers Care Transformation Specialist Name Role Phone Jerry Diamond PTA Unavailable Unavailable Procedures Procedure Date Therapeutic Activities Neuromuscular Re-Ed Manual Therapy Therapeutic Exercise Progress Note Therapeutic Activities Manual Therapy Neuromuscular Re-Ed Therapeutic Exercise Therapeutic Exercise Manual Therapy Therapeutic Activities Neuromuscular Re-Ed Therapeutic Activities Manual Therapy Therapeutic Exercise Neuromuscular Re-Ed Neuromuscular Re-Ed Therapeutic Activities Therapeutic Exercise Manual Therapy Neuromuscular Re-Ed Therapeutic Activities Therapeutic Exercise Manual Therapy Therapeutic Exercise Neuromuscular Re-Ed Manual Therapy Therapeutic Activities Manual Therapy Therapeutic Exercise Therapeutic Activities Neuromuscular Re-Ed Therapeutic Exercise Neuromuscular Re-Ed Therapeutic Activities Manual Therapy Hot or Cold Pack Therapeutic Activities Neuromuscular Re-Ed Therapeutic Exercise Manual Therapy Hot or Cold Pack Neuromuscular Re-Ed Therapeutic Exercise Therapeutic Activities Hot or Cold Pack Manual Therapy Neuromuscular Re-Ed Therapeutic Activities Therapeutic Exercise Hot or Cold Pack Manual Therapy Therapeutic Exercise Manual Therapy Hot or Cold Pack Neuromuscular Re-Ed Therapeutic Activities Therapeutic Activities Manual Therapy Neuromuscular Re-Ed Therapeutic Exercise Hot or Cold Pack Manual Therapy Therapeutic Exercise Neuromuscular Re-Ed Therapeutic Activities Manual Therapy Hot or Cold Pack Neuromuscular Re-Ed Therapeutic Exercise PT Evaluation Moderate Complexity Therapeutic Exercise Neuromuscular Re-Ed Advance Directives Directive Yes / No Effective Date File Name No Information Encounters Encounter Description Practice Location Reason(s) For Visit Diagnoses Date Provider Providers Copied on Encounter [facility] [employer], [id number], tel:[phone] [place] No Information Dara Edwards. [address] [facility], [address], [place], [address], [place]. tel:[phone] Referring Provider: Kye Oro [address] [place] [address] [address], [place], [address]. tel:[phone] [facility] [employer] [facility] [facility], [place], [place], [id number], tel:[phone] [place] No Information Gandara Zak. . Referring Provider: Kye Oro [address] [facility] [address], [place], [address]. tel:[phone] [place] [address] [facility] [address], [place], [place], [id number], [place] tel:[phone] [place] No Information Dara Edwards. [address] [facility], [address], [place], [address], [place]. tel:[phone] Referring Provider: Kye Oro, [address] [place] [address] [address], [place], [address]. tel:[phone] [place] [address] [facility] [address], [place], [place], [id number], [place] tel:[phone] [place] No Information Dara Edwards. [address] [facility], [address], [place], [address], [place]. tel:[phone] Referring Provider: Kye Oro, [address] [place] [address] [address], [place], [address]. tel:[phone] [place] [address] [facility] [address], [place], [place], [id number], [place] tel:[phone] [place] No Information Dara Edwards. [address] [facility], [address], [place], [address], [place]. tel:[phone] Referring Provider: Kye Oro, [address] [place] [address] [address], [place], [address]. tel:[phone] [place] [address] [address], [place], [place], [id number], [place] tel:[phone] [place] No Information Dara Edwards. [address] [facility], [address], [place], [address], [place]. tel:[phone] Referring Provider: Kye Oro, [address] [place] [address] [address], [place], [address]. tel:[phone] [place], [place] [id number] [address], [place], [place], [id number], [place] tel:[phone] [place] No Information Dara Edwards. [address] [facility], [address], [place], [place], [facility], [place]. tel:[phone] Referring Provider: Kye Oro, [address] [place] [address] [address], [place], [address]. tel:[phone] [place] [address] [address], [place], [place], [id number], [place] tel:[phone] [place] No Information Dara Edwards. [address] [facility], [address], [place], [place], [facility], [place]. tel:[phone] Referring Provider: Kye Oro, [address] [place] [address] [address], [place], [address]. tel:[phone] [place] [address] [place], [place] [address], [place], [place], [id number], tel:[phone] [place] No Information Dara Edwards. [address] [facility], [address], [place], [address], [place]. tel:[phone] Referring Provider: Kye Oro, [address] [place] [address] [address], [place], [address]. tel:[phone] [place] [address] [address], [place], [place], [id number], [place] tel:[phone] [place] No Information Dara Edwards. [address] [facility], [address], [place], [address], [place]. tel:[phone] Referring Provider: Kye Oro, [address] [place] [address] [address], [place], [address]. tel:[phone] [place] [address], [facility] [address], [place], [place], [id number], tel:[phone] [place] No Information Dara Edwards. [address] [place] [address], [address], [place], [address], [place]. tel:[phone] Referring Provider: Kye Oro, [address] [place] [address] [address], [place], [address]. tel:[phone] [place] [address] [address], [place], [place], [id number], [place] tel:[phone] [place] No Information Dara Edwards. [address] [facility], [address], [place], [address], [place]. tel:[phone] Referring Provider: Kye Oro, [address] [place] [address] [address], [place], [address]. tel:[phone] [place], [place] [address], [place], [place], [id number], tel:[phone] [place] No Information Dara Edwards. [address] [place] [address], [address], [place], [address], [place]. tel:[phone] Referring Provider: Kye Oro, [address] [place] [address] [address], [place], [address]. tel:[phone] [place] [address] [address], [place], [place], [id number], [place] tel:[phone] [place] No Information Dara Edwards. [address] [facility], [address], [place], [address], [place]. tel:[phone] Referring Provider: Kye Oro, [address] [place] [address] [address], [place], [address]. tel:[phone], [place], [place], [address], [place] tel:[phone] [place] No Information Dara Edwards. [address] [facility], [address], [place], [address], [place]. tel:[phone] Referring Provider: Kye Oro, [address] [place] [address] [address], [place], [address]. tel:[phone] [facility] [address] [place], [place] [address], [place], [place], [id number], [place] tel:[phone] [place] No Information Dara Edwards. [address] [facility], [address], [place], [address], [place]. tel:[phone] Referring Provider: Kye Oro, [address] [place] [address] [address], [place], [address]. tel:[phone] [facility] [address] [place], [place] [address], [place], [place], [id number], tel:[phone] [place] No Information Javier Longoria . Referring Provider: Kye Oro, [address] [place] [address] [address], [place], [address]. tel:[phone] Family History Family Member Type Diagnosis Age At Onset No Information Payers Payer name Insurance type Covered republican ID Kyra ryan(michel Quezada [facility] CI [id number] Social History Type Description Quantity Date Captured Comments Sex Female Smoking Status No Information Chief Complaint And Reason For Visit No Information Reason For Referral Reason For Referral No Information Plan Of Treatment Date Type Action Status Referral Ordered: PCP timeframe: 1 week. (related to Overweight) ordered Referral Ordered: Weight management: Referral to physician timeframe: 1 Month. (related to Overweight) ordered History Of Present Illness Encounter Date Complaint History Of Prese nt Illness No Information Functional Status Date Functional Assessmen t No Information Instructions Date Instruction Additional Infor mation No Information Assessments Type Assessment Date No Information Patient Care Teams Name Effective Dates (start - stop) Status Members No Information
--- OUTSIDE RECORDS SUMMARY | 2024-07-25 17:46 | XMS_ITS ---
Author Organization [facility] Address [address] [place] [address] Phone Care Team Providers Care Rn Tele Name Role Phone JULIA MEJIAS PA-C Primary Care Provider [phone] Plan of Treatment Pending Tests Order Diagnosis Results Due Ordering P rovider Pain Management CPT - Epidural Steroid Inj Transforaminal, Lumbar or Sacral 1st level Spinal stenosis, lumbar region with neurogenic claudication 10/25/23 MARTY ESCALONA ANP-BC Last Documented On 4 2:19PM ; [facility] Instructions to patient Intervention and counseling on cessation of tobacco use : Patient recieved smoking cessation handout Last Documented On 4 1:16PM ; [facility] Intervention and counseling on cessation of tobacco use : Patient recieved smoking cessation handout Last Documented On 4 11:13AM ; [facility] Assessments Includes: Assessments for all patient encounters Findings Encounter Date Chronic pain syndrome PAIN MANAGEMENT FO LLOW UP with MARTY ESCALONA ANP-BC 09/25/2023 Last Documented On 4 1:47PM ; [facility] Lumbar spondylosis with radiculopathy PA IN MANAGEMENT FOLLOW UP with MARTY Ella QUINTANILLAS ANP-BC 09/25/2023 Last Documented On 4 1:47PM ; [facility] Lumbar stenosis with neuroge terence claudication PAIN MANAGEMENT FOLLOW UP with MARTY QUINTANILLAS ANP-BC 09/25/2023 Last Documented On 4 1:47PM ; [facility] Myalgia PAIN MANAGEMENT FOLLOW UP with Logan QUINTANILLAS ANP-BC 09/25/2023 Last Documented On 4 1:47PM ; [facility] Spinal enthesopathy of sacra l and sacrococcygeal region PAIN MANAGEMENT FOLLOW UP with MARTY ESCALONA [facility] 09/25/2023 Last Documented On 4 1:47PM ; [facility] Chronic pain syndrome PAIN MANAGEMENT NE W CONSULT with MARTY ESCALONA [facility] 08/18/2023 Last Documented On 4 5:05PM ; [facility] Lumbar spondylosis with radiculopathy PA IN MANAGEMENT NEW CONSULT with MARTYMOUSTAPHA ESCALONA [facility] 08/18/2023 Last Documented On 4 5:05PM ; [facility] Lumbar stenosis with neuroge terence claudication PAIN MANAGEMENT NEW CONSULT with MARTYMOUSTAPHA ESCALONA [facility] 08/18/2023 Last Documented On 4 5:05PM ; [facility] Myalgia PAIN MANAGEMENT NEW CONSULT with MARTYMOUSTAPHA ESCALONA [facility] 08/18/2023 Last Documented On 4 5:05PM ; [facility] Spinal enthesopathy of sacra l and sacrococcygeal region PAIN MANAGEMENT NEW CONSULT with MARTYMOUSTAPHA ESCALONA [facility] 08/18/2023 Last Documented On 4 5:05PM ; [facility] Instructions Includes: Instructions for all patient encounters Instructions to patient Intervention and counseling on cessation of tobacco use : Patient recieved smoking cessation handout Last Documented On 4 1:16PM ; [facility] Intervention and counseling on cessation of tobacco use : Patient recieved smoking cessation handout Last Documented On 4 11:13AM ; [facility] Medical Equipment - Implanted Devices Includes: Current and historical Devices No Medical Equipment Recorded Medications Includes: Current and historical Medications Current Medications (continue as prescribed) Cyclobenzaprine HCl 10 MG Oral Tablet 09/25/2023 Pro vider: Diagnosis: Last Documented On 09/25/2023 1:16PM By Ruth Ann YOON ; [facility] Vitamin D 50 MCG (1999) Oral Capsule 08/18/2023 Lashell pimentelder: Diagnosis: Last Documented On 4 11:12AM By Ruth Ann YOON ; [facility] Vitamin C Plus 1000 MG Oral Tablet 08/18/2023 Provid er: Diagnosis: Last Documented On 4 11:11AM By Ruth Ann YOON ; [facility] B Complex Oral Capsule 08/18/2023 Provider: Diagnosis: Last Documented On 4 11:10AM By Ruth Ann YOON ; [facility] Multivitamin Oral Tablet 08/18/2023 Provider: Diagnosis: Last Documented On 4 11:10AM By Ruth Ann YOON ; [facility] Estradiol 1 MG Oral Tablet 08/18/2023 Provider: Diagnosis: TWICE A WEEK Last Documented On 4 11:08AM By Ruth Ann YOON ; [facility] Benadryl Allergy 25 MG Oral Tablet 08/18/2023 Provid er: Diagnosis: Last Documented On 4 11:06AM By Ruth Ann YOON ; [facility] Tylenol Extra Strength 500 MG Oral Tablet 08/18/2023 Provider: Diagnosis: Last Documented On 4 11:07AM By Ruth Ann YOON ; [facility] Ibuprofen 200 MG Oral Tablet 08/18/2023 Provider : Diagnosis: Last Documented On 4 11:07AM By Ruth Ann YOON ; [facility] Adult Aspirin Regimen 81 MG Oral Tablet Delayed Releas e 08/18/2023 Provider: Diagnosis: Last Documented On 4 11:08AM By Ruth Ann YOON ; [facility] Fluticasone Propionate 50 MC G/ACT Nasal Suspension 07/22/2023 Provider: JULIA KAPLAN Diagnosis: Last Documented On 4 11:04AM By Ruth Ann YOON ; [facility] Albuterol Sulfate HFA 108 (9 0 Base) MCG/ACT Inhalation Aerosol Solution 07/22/2023 Provider: JULIA MEJIAS PA-C Diagnosis: Last Documented On 4 11:04AM By Ruth Ann YOON ; [facility] Levothyroxine Sodium 100 MCG Oral Tablet 07/12/2023 Provider: JULIA NANNEY PA-C Diagnosis: Last Documented On 4 11:04AM By Ruth Ann YOON ; [facility] Lisinopril 40 MG Oral Tablet 04/16/2023 Provider: JULIA MEJIAS PA-C Diagnosis: Last Documented On 4 11:05AM By Ruth Ann YOON ; [facility] Dicyclomine HCl 10 MG Oral Capsule 04/16/2023 Provid er: JULIA MEJIAS PA-C Diagnosis: Last Documented On 4 11:05AM By Ruth Ann YOON ; [facility] Gabapentin 300 MG Oral Capsule 04/15/2023 Provider: JULIA MEJIAS PA-C Diagnosis: Last Documented On 11:05AM By Ruth Ann YOON ; [facility] Medications Administered Includes: Administered Medications in patient's chart No Administered Medications Recorded Vital Signs Includes: Vital Signs from 07/26/2023 through 07/25/2024 Vital Name 09/25/2023 01:12P 08/18/2023 11: 01A Blood Pressure Sitting R 126/62 100/70 Pulse Rate-Sitting (bpm) 81 81 Temp-Temporal 96.4 96.1 Height (in) 63.75 63.75 Weight (lb) 140 138 Body Mass Index 24.2 23.9 Body Surface Area (m2) 1.7 1.7 Pain Level 3 4 Oxygen Saturation (%) 98 99 Last Documented: On 09/25/2023 1:47PM ; [facility] On 08/18/2023 1:59PM ; [facility] Results Includes: Results from 07/26/2023 through 07/25/2024 Drugs of abuse screen [facility] Ordered by MARTY ESCALONA [facility] on Collected: Reported: 08/18/2023 10:59 Last Documented On 10:59AM ; [facility] Reviewed on 08/18/2023; All test results are final unless otherwise noted. Internal QC Acceptable None Last Documented On 10:58AM ; [facility] Lot # & Exp. Date [id number] N (Normal) Last Documented On 10:58AM ; [facility] Amphetamines NEG (NEG) N (Normal) Last Documented On 4 10:58AM ; [facility] Barbiturates NEG (neg) N (Normal) Last Documented On 4 10:58AM ; [facility] Benzodiazepines NEG (neg) N (Normal) Last Documented On 4 10:58AM ; [facility] Cocaine NEG (neg) N (Normal) Last Documented On 4 10:58AM ; [facility] Ecstasy NEG (Neg) N (Normal) Last Documented On 4 10:58AM ; [facility] Methamphetamines NEG (neg) N (Normal) Last Documented On 4 10:58AM ; [facility] Methadone NEG (Neg) N (Normal) Last Documented On 4 10:58AM ; [facility] Morphine NEG (Neg) N (Normal) Last Documented On 4 10:58AM ; [facility] Oxycodone NEG (Neg) N (Normal) Last Documented On 4 10:58AM ; [facility] Phencyclidine NEG (NEG) N (Normal) Last Documented On 4 10:58AM ; [facility] TCA/Tricyclic Antidepressants NEG (neg) N (Normal) Last Documented On 4 10:58AM ; [facility] Cannabis NEG (neg) N (Normal) Last Documented On 4 10:58AM ; [facility] History of Present Illness History of Present Illness not supported for this document type No History of Present Illness Recorded Social History Description Last Updated Current smoker 09/25/2023 Last Documented On 4 1:47PM ; [facility] No consumption of alcohol 09/25/2023 Last Documented On 4 1:47PM ; [facility] Not using drugs 09/25/2023 Last Documented On 4 1:47PM ; [facility] Difficulty walking 08/18/2023 Last Documented On 4 5:05PM ; [facility] Smoking packs of cigarettes per day 1.5 08/18/2023 Last Documented On 4 5:05PM ; [facility] Smoking Status Unknown Procedures and Surgical History Includes: Procedures from 07/26/2023 through 07/25/2024 Procedures Code Diagnosis Performing Provider Service Location Service Date CLINIC VISIT T1015 Spinal stenosis, lumbar region with neurogenic claudication, Spinal enthesopathy, sacral and sacrococcygeal region, Other spondylosis with radiculopathy, lumbar region, Chronic pain syndrome MARTY ESCALONA [facility] 09/25/2023 Last Documented On 4 2:55PM ; [facility] MRI PELVIS W/O CONTRAST 76884 Spinal enthesopathy, sacral and sacrococcygeal region MARTYMOUSTAPHA ESCALONA [facility] 08/26/2023 Last Documented On 4 1:57PM ; [facility] CLINIC VISIT T1015 Spinal stenosis, lumbar region with neurogenic claudication, Spinal enthesopathy, sacral and sacrococcygeal region, Other spondylosis with radiculopathy, lumbar region, Chronic pain syndrome MARTYMOUSTAPHA ESCALONA [facility] 08/18/2023 Last Documented On 4 12:03PM ; [facility] DRUG TEST PRESEUMPT ANY NUMBER OF CLASSES-CUP DIPSTICK CARD (CLIA WAIVED) 13528 Chronic pain syndrome MARTYMOUSTAPHA ESCALONA [facility] 08/18/2023 Last Documented On 4 12:03PM ; [facility] Surgical History Last Updated No Pacemaker 09/25/2023 Last Documented On 4 1:47PM ; [facility] Medical History Includes: Medical History in patient's chart Description Last Updated No Pain Pump 09/25/2023 Last Documented On 4 1:47PM ; [facility] No Spinal cord stimulator 09/25/2023 Last Documented On 4 1:47PM ; 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 Currently wearing eyeglasses 08/18/2023 Last Documented On 4 5:05PM ; [facility] Moderate to severe pain 08/18/2023 Last Documented On 4 5:05PM ; [facility] Please list all illnesses/co nditions you have been diagnosed with: [place] hernia repaired, dmt2,copd, emphysema, hypothyroid, htn, 08/18/2023 Last Documented On 4 5:05PM ; [facility] Please list all surgeries: P ig skin graft for diaphragmatic, repair of torn diaphragmatic, hysterectomy, appendectomy iraj hip prosthesis, rt knee replacement. rt inguinal hernia repair, appe, abisai, neck surgeryx2 , rt carpule tunnel, 08/18/2023 Last Documented On 4 5:05PM ; [facility] X-rays [facility] 4 Last Documented On 4 5:05PM ; [facility] Family History Includes: Family History in patient's chart Description Last Updated Family history [use for free text] 09/24 Last Documented On 4 1:47PM ; [facility] Family history of Bleeding disorder 09/12 Last Documented On 4 1:47PM ; [facility] Family history of kidney disease 024 Last Documented On 4 1:47PM ; [facility] Family history of stroke/paralysis 09/24 Last Documented On 4 1:47PM ; [facility] Fraternal history of family history of i schemic heart disease 09/25/2023 Last Documented On 4 1:47PM ; [facility] Fraternal history of stroke/paralysis Last Documented On 4 1:47PM ; [facility] Maternal history of Arthritis 09/25/2023 Last Documented On 4 1:47PM ; [facility] Other family history , please specify: 0 09/25/2023 Last Documented On 4 1:47PM ; [facility] Paternal history of family history of is chemic heart disease 09/25/2023 Last Documented On 4 1:47PM ; [facility] Paternal history of family history of ki dney disease 09/25/2023 Last Documented On 4 1:47PM ; [facility] Paternal history of stroke/paralysis Last Documented On 4 1:47PM ; [facility] Reported family history of seizures 09/12 Last Documented On 4 1:47PM ; [facility] Sororal history of Arthritis 09/25/2023 Last Documented On 4 1:47PM ; [facility] Sororal history of Bleeding disorder Last Documented On 4 1:47PM ; [facility] Review of Systems Review of Systems not supported for this document type No Review of Systems Recorded Mental Status No Mental Status Recorded Functional Status No Functional Status Recorded Physical Exam Physical Exam not supported for this document type No Physical Exam Recorded Allergies Includes: Active, inactive, and resolved Allergies Substance Type Reaction Onset Date Resolved Date Statu s Zofran Allergy 08/18/2023 Active Last Documented On 4 1:16PM ; [facility] traMADol HCl Allergy 08/18/2023 Active Last Documented On 4 1:16PM ; [facility] Sulfamethoxazole-Trimethoprim Allergy 08/18/2023 Active Last Documented On 4 1:16PM ; [facility] SHRIMP Allergy 08/18/2023 Active Last Documented On 4 1:16PM ; [facility] Penicillins Allergy 08/18/2023 Active Last Documented On 4 1:16PM ; [facility] NICKEL Allergy 08/18/2023 Active Last Documented On 4 1:16PM ; [facility] Lovenox Allergy 08/18/2023 Active Last Documented On 4 1:16PM ; [facility] Iodinated contrast media Allergy 08/18/2023 Active Last Documented On 4 1:16PM ; [facility] Amoxicillin Allergy 08/18/2023 Active Last Documented On 4 1:16PM ; [facility] Encounters Includes: Encounters from 07/26/2023 through 07/25/2024 Encounter Provider Location Date Check-In Time Check-Out Time Diagnosis [facility]:09PM 1:41PM Chronic Pain Syndrome,Spinal Stenosis Lumbar with Neurogenic Claudication,Spin al Enthesopathy of Sacral and Sacrococcygeal Region,Spondylosi s with Radiculopathy Lumbar Region,Myalgia , Other Site (M79.18) PAIN MANAGEMENT NEW [facility] 10:49AM 11:46AM Chronic Pain Syndrome,Spinal Stenosis Lumbar with Neurogenic Claudication,Spon dylosis with Radiculopathy Lumbar Region,Myalgia , Other Site (M79.18),Spinal Enthesopathy of Sacral and Sacrococcygeal Region Insurance Includes: Active Insurance Policies Plan Name Member ID Group # Subscriber Relationship Effect jacob Dates 1 - [facility] [id number] MILLIE WOOTEN Self Clinical Notes Includes: Signed Clinical Notes starting from 05/03/2022 * Progress note Date Encounter Last Documented by 09/25/2023 PAIN MANAGEMENT FOLLOW UP Last d ocumented on 09/25/2023; 1:47 PM, MARTY HIGUERA; [facility] Chief Complaint The Chief Complaint is: FU [...] neurosurgeon note 05/29/23: postsurgical changes of C6 Juid. 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 Tests: X-rays [facility] and CT/MRI [facility]. Current Medication - Adult Aspirin Regimen [...] 0 refills - Vitamin D 50 MCG (1999 [place]) Oral Capsule One tablet daily 0 [...] 50% of this time spent in direct [id number] counseling and coordination of care. Results of [...] but may be subject to typographical or hand sole sewer errors. Verify all diagnoses, medications, dosages, and patient instructions with patient and/or the originator of this document. Health Reminders - Assess BMI satisfied 09/25/2023. - Assess Tobacco Use satisfied 09/25/2023. - Depression Screening satisfied 09/25/2023. - Follow up plan for Depression Screening satisfied 09/25/2023. - Smoking & Tobacco Cessation Intervention and Counseling satisfied 09/25/2023. * Progress note Date Encounter Last Documented by 08/18/2023 PAIN MANAGEMENT NEW CONSULT Last documented on 08/18/2023; 5:05 PM, MARTY LEONRAD-; [facility] Chief Complaint The Chief Complaint is: REFERRED BY PILLO DENISE FOR LOW BACK PAIN C/O PAIN IN LOW BACK THAT RADIATES DOWN LEFT LEG TO BOTTOM OF FOOT X 2 MONTHS IMAGING-MRI LSPINE 06/09/23 PHYSICAL THERAPY-NONE PAIN MANAGEMENT-NONE SURGERY-NONE IS DIABETIC. History of Present Illness - Allergy list [...] Pain radiates in right foot Discussion: Patient is a 58-year-old female referred by [...] dextroscoliosis centered at T8-9. 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 Tests: X-rays [facility] and CT/MRI [facility]. Current Medication - Adult Aspirin Regimen [...] a day 0 days, 0 refills - Dicyclomine HCl [...] traMADol HCl - Zofran Family History Stroke/paralysis Stroke/paralysis Stroke/paralysis Stroke/paralysis Other family history , please specify: Reported family history of seizures Reported family history of seizures Kidney disease [...] and no tendency for easy bruising. Musculoskeletal: No musculoskeletal symptoms other than noted. Back pain, localized soft tissue swelling in the foot, and muscle cramps. Neurological: Dizziness and fainting. No fainting passing out with needles or medical procedures and no motor disturbances. Falls and numbness. Psychological: No psychological symptoms other than noted. Skin: No skin symptoms other than noted. Dry skin. Physical Findings - Vitals taken 08/18/2023 11:01 am BP-Sitting R 100/70 mmHg Pulse Rate-Sitting 81 bpm Temp-Temporal 96.1 F Height 63.75 in Weight 138 lbs Body Mass Index 23.9 kg/m2 Pain Level 4 Pain Level Note LOW BACK, 6/10 with activity Oxygen Saturation 99 % Musculoskeletal System: General/bilateral: Musculoskeletal Scales: Value Lumbar oswestry score 60 Psychiatric: Psychiatric: Value PHQ9 score: 5 Constitutional: Well developed. Well nourished. In no acute distress. HEENT: NC/AT. Anicteric. Clear Conjunctiva. PERRLA. CVS: No peripheral edema. Peripheral pulses palpable in all extremities. Pulmonary: Normal chest expansion bilaterally. Spine/MSK: Exquisite point tenderness over sacral region, more to the [...] No rash. Normal pigmentation. Normal temperature Tests - Test: Drugs of abuse screen Report Date: 08/18/2023 Internal QC Acceptable Lot # & Exp. Date [id number], 2025-01-27 Normal Amphetamines NEG Normal Barbiturates NEG Normal Benzodiazepines NEG Normal Cocaine NEG Normal Ecstasy NEG Normal Methamphetamines NEG Normal Methadone NEG Normal Morphine NEG Normal Oxycodone NEG Normal Phencyclidine NEG Normal TCA/Tricyclic Antidepressants NEG Normal Cannabis NEG Normal Educational Testing: Questionnaires PHQ-9: Value SOAPP-R: total [...] time. Follow-up after imaging Plan StartCited - Chronic pain syndrome In office procedures/*Clia Waived Labs: Urine Drug Screen EndCited StartCited - Spinal enthesopathy, sacral and sacrococcygeal region X-ray/OUTSIDE XRAYS: SACRUM AND COCCYX Radiology @ [facility]/MRI: MRI Pelvis w/o contrast Instructions: Sacrum EndCited StartCited - Spinal stenosis, lumbar region with neurogenic claudication Outside Procedures: Nerve Conduction Study, EMG Instructions: NCV/EMG bilateral lower extremities EndCited Practice Management Use of tobacco assessment performed Review of medications documented; Standardized depression screening: positive for symptoms and for adult impression and score five. A total of [45 ] minutes were spent on this patient's evaluation, as above, with greater than 50% of this time spent in direct [id number] counseling and coordination of care. Results of [...] but may be subject to typographical or hand sole sewer errors. Verify all diagnoses, medications, dosages, and patient instructions with patient and/or the originator of this document. Health Reminders - Assess BMI satisfied 08/18/2023. - Assess Tobacco Use satisfied 08/18/2023. - Depression Screening satisfied 08/18/2023. - Follow up plan for Depression Screening satisfied 08/18/2023. - Smoking & Tobacco Cessation Intervention and Counseling satisfied 08/18/2023.
--- OUTSIDE RECORDS SUMMARY | 2024-07-25 17:47 | XMS_ITS | Clinical Summary ---
Author Organization [facility] Address [address] [place] [id number] Care Team Providers Care Compliance Clerk Name Role Phone Unavailable Primary Care Provider Unavailabl e Social History Tobacco Use Types Packs/Day Years Used Date Smoking Tobacco: Never Assessed Comments Unknown Sex and Gender Information Value Date Recorded Sex Assigned at Not on file Legal Sex Female 7:24 PM CDT Gender Identity Not on file Sexual Orientation Not on file Plan of Treatment Health Maintenance Due Date Last Done Comments Cervical Cancer Screening Pa p Smear (Age 30 to 64) Every 3 Years 1965 Colorectal Cancer Screening Colonoscopy (10 Years) 1965 Annual Physical 1968 Hepatitis C 1983 DTaP, Tdap and Td Vaccines ( 1 - Tdap) 1984 Cervical Cancer Screening Pa p with HPV Testing (Age 30 to 64) Every 5 Years 1995 Cervical Cancer Screening with HPV 1995 Mammogram Screening 2005 Zoster Vaccines (1 of 2) 2015 COVID-19 Vaccine (2023-2 5 season) 2023 Meningococcal B Vaccine Aged Out No l onger eligible based on patient's age to complete this topic Meningococcal Vaccine Aged Out No amairani ravi eligible based on patient's age to complete this topic Pneumococcal Vaccine: Pediat rics (0 to 5 Years) and At-Risk Patients (6 to 49 Years) Aged Out No longer eligible b ased on patient's age to complete this topic RSV Immunizations Under 20 Months Aged Out No longer eligible based on patient's age to complete this topic Insurance [employer]
--- OUTSIDE RECORDS SUMMARY | 2024-07-25 17:47 | XMS_ITS | Encounter Summary ---
Author Organization [facility] Address [address] [place] [address] Care Team Providers Care Thermal Engineer Name Role Phone Nasir Jung MD Primary Care Provider [phone] Jerry Carroll Primary Care Provider [phone] Nasir Jung MD Primary Care Provider [phone] Nasir Jung MD Primary Care Provider [phone] Jerry Carroll Primary Care Provider [phone] Kye Oro MD Unavailable [phone] Murray Nava MD Unavailable [phone] Joe Renae Unavailable [phone] Encounter Details Date Type Department Care Team (Late st Contact Info) Description 06/19/2017 Telephone [facility] Operating Room [facility] [place] [address] Beba Thibodeaux Social History Tobacco Use Types Packs/Day Years Used Date Smoking Tobacco: Never Smokeless Tobacco: Never Alcohol Use Standard Drinks/Week Comments No 0 (1 standard drink = 0.6 oz pur e alcohol) Comments No Sex and Gender Information Value Date Recorded Sex Assigned at Not on file Legal Sex Female 3:46 AM 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 [facility] 02/21/2015 02/21/2015 07/16/2017 11:08 AM CDT COVID: Suspected 02/13/2020 02/13/2020 02/13/2020 8:53 PM MEDICAL INSURANCE CLERK Respiratory Infection (CHRIS), contact + droplet Comment:Automatically added due to negative COVID-19 result. 02/13/2020 02/13/2020 02/27/2020 3:0 6 AM MEDICAL INSURANCE CLERK COVID: Suspected 02/14/2020 02/14/2020 02/14/2020 12:38 PM MEDICAL INSURANCE CLERK COVID: Suspected 02/22/2020 02/22/2020 02/24/2020 1:35 AM MEDICAL INSURANCE CLERK COVID: Suspected 04/11/2022 04/11/2022 04/12/2022 3:05 AM MEDICAL INSURANCE CLERK COVID: Suspected 04/11/2022 04/11/2022 04/12/2022 5:38 AM MEDICAL INSURANCE CLERK documented as of this encounter Care Teams Thermal Engineer Relationship Specialty Start Date End Date Nasir Jung MD PCP - General 05/27/17 06/19/17 Jerry Carroll PA [address] [place] [address] PCP - General 06/20/17 07/03/17 Nasir Jung MD PCP - General 07/04/17 07/09/17 Nasir Jung MD PCP - General 07/10/17 11/12/17 Jerry Carroll PA [address] [place] [address] PCP - General Family Practice 11/13/17 Kye Oro MD [address] [place] [address] Surgeon Orthopedic Surgery 11/24/20 Murray Nava MD [address] [facility] [address] [facility] [place] [id number] Referring Physician Neurosurgery 08/02/22 Joe Renae PA [address] [id number], [place] [address] Physician Song Plugger Neurosurgery 08/02/22 documented as of this encounter
--- OUTSIDE RECORDS SUMMARY | 2024-07-25 17:47 | XMS_ITS | Data Portability ---
Author Organization [facility] Address [address] [place] [address] Care Team Providers Care Pantograph Watcher Name Role Phone JULIA CARROLL Primary Care Provider Assessment No assessment recorded. Plan of Treatment Reminders Order Date Submit Date Provider Last Modified By Organization Details Last Modified Time Details Appointments None recorded. Lab HbA1c (hemoglobi n A1c), blood 2024 025 [email or web address] In-Office Order, Internal Use Only DO Not Attach Compendium DO Not Attach Compendium, Do Not Delete/merge, [id number] 5 12:55:38 lipid panel, serum 2023 024 [facility], [address] [facility], [address], [place], [address], 4 06:18:07 HbA1c (hemoglobi n A1c), blood 2023 024 [facility] In-Office Order, Internal Use Only DO Not Attach Compendium DO Not Attach Compendium, Do Not Delete/merge, [id number] 4 16:11:01 CBC 2023 024 [facility], [address] [facility], [address], [place], [address], 4 06:18:09 CMP, serum or plasma 2023 024 [facility], [address], [address], [place], [address], 4 06:18:08 Referral None recorded. Procedures None recorded. Surgeries None recorded. Imaging None recorded. Medication Orders gabapentin 300 mg capsule 2024 025 [facility], [address] [place] [address], [place], [address], 5 12:11:29 Spiriva with HandiHaler 18 mcg and inhalation capsules 2024 025 [facility], [address] [place] [address], [place], [address], 5 12:11:27 prochlorpe razine maleate 5 mg tablet 2024 025 [facility] [address], [address] [place] [address], [place], [address], 5 12:11:28 levothyrox ine 100 mcg tablet 2024 025 [facility] [address], [address] [place] [address], [place], [address], 5 12:11:30 lisinopril 20 mg tablet 2024 025 [facility] [address], [address] [place] [address], [place], [address], 5 12:11:28 albuterol sulfate 1.25 mg/3 mL solution for nebulizati on 2024 025 [facility] [address], [address] [place] [address], [place], [address], 5 12:11:30 albuterol sulfate HFA 90 mcg/actuat ion aerosol inhaler 2024 025 [facility] [address], [address] [place] [address], [place], [address], 5 12:11:29 baclofen 20 mg tablet 2024 025 [facility] [address], [address] [place] [address], [place], [address], 5 12:11:33 estradiol 1 mg tablet 2023 024 [facility] [address], [address] [place] [address], [place], [address], 4 12:53:43 estradiol 1 mg tablet 2023 024 [facility] [address], [address] [place] [address], [place], [address], 4 12:08:22 baclofen 10 mg tablet 2023 025 [facility] [address], [address] [place] [address], [place], [address], 5 11:53:07 fluticason e propionate 50 mcg/actuat ion nasal spray,susp ension 2023 024 [email or web address], [address] [place] [address], [place], [address], 15:32:36 Patient TargetsNo targets recorded. Patient Instructions Encounter Date Encounter Id Patient Instructions Last Modified By Organization Details Last Modified Time 10/02/2023 [id number] A healthy lifestyle: care instructions [email or web address] Not available 10/02/2023 15:52:04 learning about h igh blood pressure jnanney Not available 10/02/2023 15:52:04 lightheadedness or faintness: care instructions [email or web address] Not available 10/02/2023 15:52:04 12/08/2023 [id number] Quitting Tobacco : Care Instructions [email or web address] Not available 12/08/2023 12:08:06 hot flashes duri ng menopause: care instructions [email or web address] Not available 12/08/2023 12:08:06 We will use estr ogn 1 pill twice a week until April and then decrease to once a week and by age 60 you will be done with estrogen. Do NOT douche as it disturbs the natural balance of bacteria in the vagina and can cause infection. Avoid scented soaps or lotions. Use a basic unscented soap for only the outer skin around your vagina. Wear cotton underwear, avoid thongs, avoid spandex, leggings and wear panty liners daily. You can try probiotics. [email or web address] Not available 12/08/2023 12:09:12 12/22/2023 [id number] Quitting Tobacco : Care Instructions [email or web address] Not available 12/22/2023 12:53:36 Your women's [facility] annual exam today was unremarkable. Continue to practice breast self awareness like we discussed. Come back to the office with any breast changes, nipple discharge, or with complaints of unusual odorous discharge. Otherwise, come back in 1 year for your next well woman annual exam. Do NOT douche as it disturbs the natural balance of bacteria in the vagina and can cause infection. Avoid scented soaps or lotions. Use a basic unscented soap for only the outer skin around your vagina. Wear cotton underwear, avoid thongs, avoid spandex, leggings and wear panty liners daily. You can try probiotics. 1. Start taking a multivitamin, calcium and vitamin D3 supplements daily to keep your bones healthy. 2. Exercise and keep a healthy diet to minimize risk for stroke, heart attack and osteoporosis. 3. Use a once a day vaginal moisturizer (like Replens) if you have bothersome dryness. If dryness continues to be a problem, make an appointment to see us to discuss other options. Keep taking your multivitamins. Your bones get weaker after menopause, and you need to take your calcium and vitamin D3, which are multivitamins, to make sure your bones stay strong. Regular exercise, like walking, is very good to keep bones healthy. Try exercising for 30 minutes 5 times a week. Try having 2-3 servings of low fat dairy every day. Lubrication can help make penetrative intercourse more comfortable. There are 3 types of lube: Water-based (examples are KY jelly, Astroglide): inexpensive, can buy over the counter, often gets sticky and needs to be reapplied. Oil-based (examples olive oil, coconut oil): inexpensive, can stain sheets, do not use with condoms. Silicone-based (examples Uber Lube, Pjur): more expensive, a little goes a long way, does not have scents or stain sheets. [email or web address] Not available 12/22/2023 12:36:40 04/20/2024 [id number] chronic obstruct jacob pulmonary disease (COPD): care instructions [email or web address] Not available 04/20/2024 12:11:18 learning about c opd and how to prevent lung infections jnanney Not available 04/20/2024 12:11:18 nausea and vomiting: care instructions jnanney Not available 04/20/2024 12:11:18 learning about h igh blood pressure jnanney Not available 04/20/2024 12:55:38 Reason for Referral None Reported. Results Created Date Observation Date Name Description Value Unit Range Abnormal Flag Note LastModifiedBy Organization Detail LastModifiedTime 08/18/1908/18/2023 Drugs of abuse panel - Urine by Scree n metho d internal QC acceptable N/A Inter nal QC Accep table Not Available Not Available 07/07/2024 12:04:55 08/18/19 24 08/18/2023 Drugs of abuse panel - Urine by Scree n metho d lot # & exp. date [id number] 2024-04 0-16 normal Lot # & Exp. Date Not Available Not Available 07/07/2024 12:04:55 08/18/19 24 08/18/2023 Drugs of abuse panel - Urine by Scree n metho d amphetamines NEG normal Amphe tamin es Not Available Not Available 07/07/2024 12:04:55 08/18/19 24 08/18/2023 Drugs of abuse panel - Urine by Scree n metho d barbiturates NEG normal Aisha turat es Not Available Not Available 07/07/2024 12:04:55 08/18/19 24 08/18/2023 Drugs of abuse panel - Urine by Scree n metho d benzodiazepi bernadette NEG normal Benzo diaze pines Not Available Not Available 07/07/2024 12:04:55 08/18/19 24 08/18/2023 Drugs of abuse panel - Urine by Scree n metho d cocaine NEG normal Cocai ne Not Available Not Available 07/07/2024 12:04:55 08/18/19 24 08/18/2023 Drugs of abuse panel - Urine by Scree n metho d ecstasy NEG normal Ecsta sy Not Available Not Available 07/07/2024 12:04:55 08/18/19 24 08/18/2023 Drugs of abuse panel - Urine by Scree n metho d methamphetam tank NEG normal Metha mphet amine s Not Available Not Available 07/07/2024 12:04:55 08/18/19 24 08/18/2023 Drugs of abuse panel - Urine by Scree n metho d methadone NEG normal Metha done Not Available Not Available 07/07/2024 12:04:55 08/18/19 24 08/18/2023 Drugs of abuse panel - Urine by Scree n metho d morphine NEG normal Morph ine Not Available Not Available 07/07/2024 12:04:55 08/18/19 24 08/18/2023 Drugs of abuse panel - Urine by Scree n metho d oxycodone NEG normal Oxyco done Not Available Not Available 07/07/2024 12:04:55 08/18/19 24 08/18/2023 Drugs of abuse panel - Urine by Scree n metho d phencyclidin e NEG normal Phenc yclid ine Not Available Not Available 07/07/2024 12:04:55 08/18/19 24 08/18/2023 Drugs of abuse panel - Urine by Scree n metho d tca/tricyc lic antidepressa nts NEG normal TCA /Tric yclic Antid epres sants Not Available Not Available 07/07/2024 12:04:55 08/18/19 24 08/18/2023 Drugs of abuse panel - Urine by Scree n metho d cannabis NEG normal Canna bis Not Available Not Available 07/07/2024 12:04:55 10/02/19 24 10/02/2023 LIPID PANEL cholesterol, total 183 mg/dL 100-19 9 Not Available [facility] [address] [place] [address], [address], 10/03/2023 06:18:07 10/02/19 24 10/02/2023 LIPID PANEL triglyceride s 116 mg/dL 0-149 Not Available [address], [address], 10/03/2023 06:18:07 10/02/19 24 10/02/2023 LIPID PANEL HDL cholesterol 66 mg/dL 40-999 Not Available [facility] & [address], [address], 10/03/2023 06:18:07 10/02/19 24 10/02/2023 LIPID PANEL VLDL cholesterol elida 23 mg/dL 5-40 Not Available [address], [address], 10/03/2023 06:18:07 10/02/19 24 10/02/2023 LIPID PANEL LDL chol calc (nih) 111 mg/dL 0-99 above high normal Not Available [address], [address], 10/03/2023 06:18:07 10/02/19 24 10/02/2023 COMP. METAB OLIC PANEL (14) glucose 339 mg/dL 70-99 above high normal Not Available [address], [address], 10/03/2023 06:18:08 10/02/19 24 10/02/2023 COMP. METAB OLIC PANEL (14) BUN 11 mg/dL 6-24 Not Available [address], [address], 10/03/2023 06:18:08 10/02/19 24 10/02/2023 COMP. METAB OLIC PANEL (14) creatinine 0.64 mg/dL 0.76-1 .27 below low normal Not Available [address], [address], 10/03/2023 06:18:08 10/02/19 24 10/02/2023 COMP. METAB OLIC PANEL (14) eGFR 102 >=60 Units for eGFR value s are mL/mi n/1.7 3 The eGFR Calcu latio n has not been valid ated for patie nts under the age of 18. If test resul ts are displ ayed for a patie nt under the age of 18, disre marcus that value . Not Available [address], [address], 10/03/2023 06:18:08 10/02/19 24 10/02/2023 COMP. METAB OLIC PANEL (14) BUN/creatini ne ratio 17 9-23 Not Available [address], [address], 10/03/2023 06:18:08 10/02/19 24 10/02/2023 COMP. METAB OLIC PANEL (14) sodium 141 mmol/ L 134-14 4 Not Available [address], [address], 10/03/2023 06:18:08 10/02/19 24 10/02/2023 COMP. METAB OLIC PANEL (14) potassium 4.8 mmol/ L 3.5-5. 2 Not Available [address], [address], 10/03/2023 06:18:08 10/02/19 24 10/02/2023 COMP. METAB OLIC PANEL (14) chloride 106 mmol/ L 96-106 Not Available [address], [address], 10/03/2023 06:18:08 10/02/19 24 10/02/2023 COMP. METAB OLIC PANEL (14) carbon dioxide, total 22 mmol/ L 20-29 Not Available [address], [address], 10/03/2023 06:18:08 10/02/19 24 10/02/2023 COMP. METAB OLIC PANEL (14) calcium 9.3 mg/dL 8.7-10 .2 Not Available [address], [address], 10/03/2023 06:18:08 10/02/19 24 10/02/2023 COMP. METAB OLIC PANEL (14) protein, total 6.5 g/dL 6.0-8. 5 Not Available [address], [address], 10/03/2023 06:18:08 10/02/19 24 10/02/2023 COMP. METAB OLIC PANEL (14) albumin 4.5 g/dL 3.8-4. 9 Not Available [address], [address], 10/03/2023 06:18:08 10/02/19 24 10/02/2023 COMP. METAB OLIC PANEL (14) globulin, total 2.0 g/dL 1.5-4. 5 Not Available [address], [address], 10/03/2023 06:18:08 10/02/19 24 10/02/2023 COMP. METAB OLIC PANEL (14) A/G ratio 2.3 1.2-2. 2 above high normal Not Available [address], [address], 10/03/2023 06:18:08 10/02/19 24 10/02/2023 COMP. METAB OLIC PANEL (14) bilirubin, total 0.3 mg/dL 0.0-1. 2 Not Available [address], [address], 10/03/2023 06:18:08 10/02/19 24 10/02/2023 COMP. METAB OLIC PANEL (14) alkaline phosphatase 76 IU/L 44-121 Not Available [facility] & [address], [address], 10/03/2023 06:18:08 10/02/19 24 10/02/2023 COMP. METAB OLIC PANEL (14) AST (SGOT) 16 IU/L 0-40 Not Available [address], [address], 10/03/2023 06:18:08 10/02/19 24 10/02/2023 COMP. METAB OLIC PANEL (14) ALT (SGPT) 16 IU/L 0-32 Not Available [address], [address], 10/03/2023 06:18:08 10/02/19 24 10/02/2023 CARDI OVASC ULAR REPOR T interpretati on Note Suppl ement al repor t is avail able. Not Available [address], [address], 10/03/2023 06:18:08 10/02/19 24 10/02/2023 CARDI OVASC ULAR REPOR T pdf . Not Available [facility] & [address], [address], 10/03/2023 06:18:08 10/02/19 24 10/02/2023 CBC, PLATE LET, NO DIFFE RENTI AL WBC 6.4 x10e3 /uL 3.4-10 .8 Not Available [address], [address], 10/03/2023 06:18:09 10/02/19 24 10/02/2023 CBC, PLATE LET, NO DIFFE RENTI AL RBC 4.20 x10e6 /uL 3.77-5 .28 Not Available [facility] & [address], [address], 10/03/2023 06:18:09 10/02/19 24 10/02/2023 CBC, PLATE LET, NO DIFFE RENTI AL hemoglobin 12.9 g/dL 11.1-1 5.9 Not Available [address], [address], 10/03/2023 06:18:09 10/02/19 24 10/02/2023 CBC, PLATE LET, NO DIFFE RENTI AL hematocrit 40.5 % 34.0-4 6.6 Not Available [address], [address], 10/03/2023 06:18:09 10/02/19 24 10/02/2023 CBC, PLATE LET, NO DIFFE RENTI AL MCV 96 fL 79-97 Not Available [address], [address], 10/03/2023 06:18:09 10/02/19 24 10/02/2023 CBC, PLATE LET, NO DIFFE RENTI AL MCH 30.7 pg 26.6-3 3.0 Not Available [address], [address], 10/03/2023 06:18:09 10/02/19 24 10/02/2023 CBC, PLATE LET, NO DIFFE RENTI AL MCHC 31.9 g/dL 31.5-3 5.7 Not Available [address], [address], 10/03/2023 06:18:09 10/02/19 24 10/02/2023 CBC, PLATE LET, NO DIFFE RENTI AL RDW 15.8 % 11.5-1 4.5 above high normal Not Available [address], [address], 10/03/2023 06:18:09 10/02/19 24 10/02/2023 CBC, PLATE LET, NO DIFFE RENTI AL platelets 240 x10e3 /uL 150-45 0 Mean Plate let Volum e 9.7 fL 8.9-1 2.7 N Not Available [facility] [address] [place], [address], 10/03/2023 06:18:09 10/02/19 24 10/02/2023 CBC, PLATE LET, NO DIFFE RENTI AL NRBC 0 % 0-0 Not Available [facility] [address] [place] [address], [address], 10/03/2023 06:18:09 10/02/19 24 10/02/2023 HbA1c (hemo globi n A1c), blood HbA1c 6.0 Not Available In-Office Order Internal Use Only DO Not Attach Compendium DO Not Attach Compendium, Do Not Delete/merge, [id number] 10/02/2023 15:51:28 04/20/19 25 04/20/2024 HbA1c (hemo globi n A1c), blood HbA1c 6.1 Not Available In-Office Order Internal Use Only DO Not Attach Compendium DO Not Attach Compendium, Do Not Delete/merge, [id number] 04/20/2024 09:04:51 08/18/19 24 08/18/2023 XR, sacru m + coccy x, 2 or more view No observ ation [facility] [address] [facility], [place], [address], 08/18/2023 14:58:32 08/26/19 24 08/26/2023 MRI, pelvi s, w/o contr ast No observ ation record ed. [facility] [address] [facility], [place], [address], 08/26/2023 12:01:52 Result Notes None recorded. Problems Name Problem SNOMED Code Status Onset Date Resolution Date Notes Provider Name and Address Organization Details Recorded Time Type 2 diabetes mellitus 58385548 Active 2017 KAYLI BLACK NP Attn: Accounting ,[address] [facility], [place], [address] , [place] [facility] 4 10:37:31 Chronic obstructiv e pulmonary disease 48907383 Active 2014 Not Available [facility] 18:33:18 Tobacco dependence syndrome 24908351 Active 2014 Not Available [facility] 18:33:18 Pleural effusion 73043744 Active 2014 Not Available [facility] 18:33:18 Asthma 400099780 Active 2019 KAYLI BLACK NP Attn: Accounting ,[address] [facility], [place], [address] , [place] [facility] 4 11:49:58 Postproced ural respirator y disorders 133623195 Active KAYLI BLACK NP Attn: Accounting ,[address] 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, [place], [address] , [place] [facility] 4 11:49:59 Rib pain 348746887 Active Not Available [facility] 18:33:18 Right upper quadrant pain 121552152 Active Not Available [facility] 18:33:18 Steatosis of liver 526956819 Active 2019 KAYLI BLACK NP Attn: Accounting ,[address] [facility], [place], [address] , [facility] - [facility] 4 11:49:59 Gallstone 089764189 Active Not Available [facility] 18:33:18 Cholelithi asis with obstructio n 78891923 Active 2019 KAYLI BLACK NP Attn: Accounting ,[address] [facility], [place], [address] , [place] [facility] 4 11:49:59 Hiatal hernia 56130377 Active 2019 KAYLI BLACK NP Attn: Accounting ,[address] [facility], [place], [address] , [place] [facility] 4 11:49:59 Abdominal pain 17639702 Active Not Available [facility] 18:33:18 Acute bronchitis 99245390 Active Not Available [facility] 18:33:18 Pneumonia 365490890 Active 2019 KAYLI BLACK NP Attn: Accounting ,[address] [facility], [place], [address] , [place] [facility] 4 11:49:59 Problem Notes None recorded. Procedures Surgical History Date Name Laterality Status Provider Name and Address Organization Details Recorded Time 2023 Flexible Laryngoscopy completed Julia Green MD Attn: Accounting ,[address] [facility], [place], [address] , [place] - [facility] 4 11:14:08 2018 Date of Last Mammogram completed KAYLI BLACK NP Attn: Accounting ,[address] [facility], [place], [address] , [place] [facility] 4 12:43:47 2018 Most Recent Mammogram completed KAYLI BLACK NP Attn: Accounting ,[address] [facility], [place], [address] , [place] [facility] 4 12:43:38 2018 endoscopic retrograde cholangiopancreatography completed Dee Stahl [place] [facility] 9 10:03:31 1994 Total hysterectomy completed Denisa Croft [place] [facility] 3 12:43:20 excision of bilatera l fallopian tubes and ovaries completed KAYLI BLACK NP Attn: Accounting ,[address] [facility], [place], [address] , [place] [facility] 4 11:52:55 Appendectomy completed Chely Whittaker [place] [facility] 5 11:05:03 Breast Surgery completed Chely Whittaker [place] [facility] 5 11:05:03 Tubal Ligation completed Chely [place]ittaker [place] [facility] 5 11:05:03 Hernia Repair completed Chely [place]ittaker [place] [facility] 5 11:05:03 Joint Replacement completed Chely Whittaker [place] [facility] 5 11:05:03 Tonsillectomy completed KEISHA Roque - [facility] 5 11:05:03 Imaging Results Imaging Date Name Status LastModified by Organiz ation Details LastModified Time 08/18/2023 XR, sacrum + coccyx, 2 or more view completed [facility] [address] [facility], [place], [address], 08/18/2023 14:58:32 08/26/2023 MRI, pelvis, w/o contrast completed [facility] [address] [facility], [place], [address], 08/26/2023 12:01:52 Procedure Notes None recorded. Medical Equipment None Reported. Allergies Allergen ID Allergen Name Allergen Category Reaction Reaction Severity Criticality Documentation Date Start Date Code Code System Note Provider Name and Address Organization Details Recorded Time 666645 Zofran medicatio n Not available Not available Not available 11/25/2017 91117 RxNorm Does not work Not Available Not Available Not Available 318851 ioversol medicatio n hives rash Not available Not available Not available 07/15/2018 27083 RxNorm Not Available Not Available Not Available 777106 amoxicill in medicatio n Not available Not available Not available 07/15/2018 723 RxNorm Other react ions and sever ities : 'Hive s - Moder ate'. Not Available Not Available Not Available 622060 trimethop rim medicatio n hives rash Not available Not available Not available 07/15/2018 68990 RxNorm Not Available Not Available Not Available 810881 sulfameth oxazole medicatio n hives rash Not available Not available Not available 07/15/2018 38532 RxNorm Not Available Not Available Not Available 480578 tramadol medicatio n Not available Not available Not available 07/15/2018 18813 RxNorm Sleep Walk Not Available Not Available Not Available 641677 enoxapari n medicatio n other mild Not available 12/08/20232017 72493 RxNorm Not Available Not Available Not Available 056658 ondansetr on medicatio n other mild Not available 12/08/20232017 58093 RxNorm Not Available Not Available Not Available 852844 nickel environme nt Not available Not available Not available 12/08/20232017 20264 29 RxNorm Other react ions and sever ities : 'Swel ling - Moder ate'. Not Available Not Available Not Available 625182 shrimp allergeni c extract food Not available Not available Not available 12/08/20232017 71095 2 RxNorm Other react ions and sever ities : 'Swol edison tongu e - Sever e'. Not Available Not Available Not Available 19194 sulfameth oxazole / trimethop rim medicatio n Not available Not available Not available 06/27/2014 59747 RxNorm Not Available Not Available Not Available 44499 Iodinated contrast media (substanc e) medicatio n Not available Not available Not available 06/27/2014 35982 2004 SNOMED Not Available Not Available Not Available 21021 Amoxil medicatio n Not available Not available Not available 06/27/2014 97454 9 RxNorm Not Available Not Available Not Available Medications Name Sig Start Date Stop Date Status Note LastModified by Organization Details LastModified Time cyclobenzap rine 10 mg tablet TAKE 1 TABLET BY MOUTH THREE TIMES DAILY 12/07 completed Not Available Not Available Not Available fluconazole 100 mg tablet 02/22 completed Not Available Not Available Not Available silver sulfadiazin e 1 % topical cream 07/04 completed Not Available Not Available Not Available metformin 500 mg tablet TAKE ONE TABLET BY MOUTH TWICE DAILY WITH MORNING AND EVENING MEALS 06/04 completed Not Available Not Available Not Available hydrocodone 7.5 mg-ibuprofe n 200 mg tablet 02/22 completed Not Available Not Available Not Available prednisone 10 mg tablet 07/16 completed Not Available Not Available Not Available clindamycin HCl 300 mg capsule TAKE 1 CAPSULE BY MOUTH EVERY 6 HOURS UNTIL GONE 05/30 completed Not Available Not Available Not Available albuterol sulfate 2.5 mg/3 mL (0.083 %) solution for nebulizatio n 04/20 completed Not Available Not Available Not Available azithromyci n 250 mg tablet TAKE 2 TABLETS BY MOUTH ON DAY 1, AND THEN TAKE 1 TABLET BY MOUTH ONCE A DAY ON DAY 2 THROUGH DAY 5 04/20 completed Not Available Not Available Not Available ibuprofen 800 mg tablet 12/11 completed Not Available Not Available Not Available Glucagon Emergency Kit 1 mg solution for injection active Not Available Not Available No t Available benzonatate 200 mg capsule 06/22 completed Not Available Not Available Not Available metoprolol succinate ER 50 mg tablet,exte nded release 24 hr 11/25 completed Not Available Not Available Not Available albuterol sulfate 1.25 mg/3 mL solution for nebulizatio n USE 1 VIAL IN NEBULIZER 4 TIMES DAILY NEEDED active Not Available Not Available No t Available hydrocodone 5 mg-acetamin ophen 325 mg tablet TAKE 1 OR 2 TABLETS BY MOUTH EVERY 6 HOURS NEEDED FOR PAIN 04/16 completed Not Available Not Available Not Available prochlorper azine maleate 5 mg tablet TAKE 1 TABLET BY MOUTH TWICE DAILY NEEDED active Not Available Not Available No t Available fluconazole 200 mg tablet TAKE 1 TABLET BY MOUTH EVERY 72 HOURS DIRECTED 10/29 completed Not Available Not Available Not Available lisinopril 20 mg tablet TAKE 1 TABLET BY MOUTH ONCE DAILY active Not Available Not Available No t Available ondansetron HCl 4 mg tablet TAKE 1 TABLET BY MOUTH TWICE DAILY NEEDED 10/29 completed Not Available Not Available Not Available prednisone 20 mg tablet 06/22 completed Not Available Not Available Not Available metronidazo le 250 mg tablet 02/12 completed Not Available Not Available Not Available Anucort-HC 25 mg suppository Insert 1 supposito ry twice a day by rectal route for 14 days. 03/25 completed Not Available Not Available Not Available clindamycin HCl 150 mg capsule TAKE ONE CAPSULE BY MOUTH EVERY SIX HOURS UNTIL ALL TAKEN 04/16 completed Not Available Not Available Not Available acetaminoph en 300 mg-codeine 30 mg tablet TAKE 1 TABLET BY MOUTH THREE TIMES DAILY NEEDED 04/16 completed Not Available Not Available Not Available prochlorper azine maleate 10 mg tablet TAKE ONE TABLET BY MOUTH THREE TIMES A DAY NEEDED 2022 active Not Available Not Available Not Avai lable ciprofloxac in 500 mg tablet TAKE 1 TABLET BY MOUTH EVERY 12 HOURS FOR 10 DAYS active Not Available Not Available No t Available aspirin 81 mg tablet,ricardo yed release Take 1 tablet every day by oral route. 04/16 completed Not Available Not Available Not Available tramadol 50 mg tablet 50 mg by oral route. 02/12 completed Not Available Not Available Not Available acetaminoph en 500 mg tablet active Not Available Not Available Not Available baclofen 20 mg tablet TAKE 1 TABLET BY MOUTH THREE TIMES DAILY NEEDED active Not Available Not Available No t Available ketorolac 0.5 % eye drops 06/22 completed Not Available Not Available Not Available nortriptyli ne 25 mg capsule 02/12 completed Not Available Not Available Not Available levothyroxi ne 100 mcg tablet TAKE 1 TABLET BY MOUTH ONCE DAILY active Not Available Not Available No t Available oxycodone-a cetaminophe n 5 mg-325 mg tablet TAKE 1 TABLET BY MOUTH EVERY 6 HOURS NEEDED FOR PAIN 10/29 completed Not Available Not Available Not Available terbinafine HCl 250 mg tablet Take 1 tablet every day by oral route for 84 days. 02/22 completed Not Available Not Available Not Available levothyroxi ne 88 mcg tablet TAKE ONE TABLET BY MOUTH ONCE DAILY 06/11 completed Not Available Not Available Not Available alprazolam 0.5 mg tablet TAKE 1 TABLET BY MOUTH THREE TIMES DAILY 05/30 completed Not Available Not Available Not Available prednisolon e acetate 1 % eye drops,suspe nsion PLACE 1 DROP INTO RIGHT EYE THREE TIMES DAILY FOR 2 WEEKS 06/22 completed Not Available Not Available Not Available lorazepam 0.5 mg tablet 0.5 mg by oral route. 02/22 completed Not Available Not Available Not Available estradiol 1 mg tablet Take 1 pill once weekly 2024 active Not Available Not Available Not Avai lable aspirin 325 mg tablet,ricardo yed release 10/29 completed Not Available Not Available Not Available ciprofloxac in 0.3 % eye drops INSTILL 1 DROP INTO AFFECTED EYE(S) BY OPHTHALMI C ROUTE EVERY 2 HOURSWHIL E AWAKE FOR 2 DAYS THEN 1 DROP EVERY 4 HRS WHILE AWAKE FOR 5 DAYS 07/27 completed Not Available Not Available Not Available lorazepam 2 mg tablet Take 1 tablet 3 times a day by oral route as needed for 30 days. 06/11 completed Not Available Not Available Not Available baclofen 10 mg tablet TAKE 1 TABLET BY MOUTH THREE TIMES DAILY 04/20 completed Not Available Not Available Not Available gemfibrozil 600 mg tablet 1 bid 06/04 completed Not Available Not Available Not Available hydrocodone 7.5 mg-acetamin ophen 325 mg tablet 02/12 completed Not Available Not Available Not Available cephalexin 500 mg capsule Take 1 capsule every 8 hours by oral route for 10 days. 02/22 completed Not Available Not Available Not Available erythromyci n 5 mg/gram (0.5 %) eye ointment APPLY 1 CM RIBBON INTO THE LOWER CONJUNCTI LAKESHA SAC(S) IN THE AFFECTED EYE(S) BY OPHTHALMI C ROUTE 3 TIMES PER DAY FOR 10 DAYS 02/03 completed Not Available Not Available Not Available ranitidine 150 mg tablet 150 mg by oral route. active Not Available Not Available No t Available buspirone 10 mg tablet Take 1 tablet twice a day by oral route for 30 days. 06/22 completed Not Available Not Available Not Available lisinopril 10 mg tablet Take 10 mg by oral route. 04/20 completed Not Available Not Available Not Available oxymetazoli ne-menthol 0.05 % nasal spray 2 {spray}s by nasal route. active Not Available Not Available No t Available gabapentin 300 mg capsule TAKE 1 CAPSULE BY MOUTH THREE TIMES DAILY 2024 active Not Available Not Available Not Avai lable budesonide 0.5 mg/2 mL suspension for nebulizatio n 12/11 completed Not Available Not Available Not Available montelukast 10 mg tablet 1 QD 03/25 completed Not Available Not Available Not Available hydroxyzine HCl 25 mg tablet Take 1 tablet 3 times a day by oral route as needed for 30 days. 06/22 completed Not Available Not Available Not Available codeine 10 mg-guaifene sin 100 mg/5 mL oral liquid Take 10 mL every 4 hours by oral route for 10 days. 02/22 completed Not Available Not Available Not Available hydrochloro thiazide 25 mg tablet TAKE 1 TABLET BY MOUTH EVERY DAY 05/30 completed Not Available Not Available Not Available mupirocin 2 % topical ointment APPLY PEA SIZED AMOUNT TOPICALLY IN EACH NOSTRIL TWICE DAILY FOR 5 DAYS 05/30 completed Not Available Not Available Not Available levofloxaci n 500 mg tablet Take 1 tablet every 24 hours by oral route for 7 days. 06/11 completed Not Available Not Available Not Available levofloxaci n 750 mg tablet Take 1 tablet every day by oral route for 7 days. 02/22 completed Not Available Not Available Not Available scopolamine 1 mg over 3 days transdermal patch 07/06 completed Not Available Not Available Not Available methylpredn isolone 4 mg tablets in a dose pack FOLLOW PACKAGE DIRECTION S 08/06 completed Not Available Not Available Not Available albuterol sulfate HFA 90 mcg/actuati on aerosol inhaler INHALE 2 PUFFS BY MOUTH EVERY 4 HOURS NEEDED active Not Available Not Available No t Available ketorolac 60 mg/2 mL intramuscul ar solution Inject 2 mL by intramusc ular route. 07/06 completed Not Available Not Available Not Available Colestid 1 gram tablet Take 500 mg by oral route. 04/20 completed Not Available Not Available Not Available lisinopril 40 mg tablet TAKE 1 TABLET BY MOUTH ONCE DAILY FOR 90 DAYS active Not Available Not Available No t Available fluticasone propionate 50 mcg/actuati on nasal spray,suspe nsion USE 2 SPRAY(S) IN EACH NOSTRIL ONCE DAILY active Not Available Not Available No t Available dicyclomine 10 mg capsule TAKE 1 CAPSULE BY MOUTH THREE TIMES DAILY NEEDED 12/07 completed Not Available Not Available Not Available acarbose 25 mg tablet 25 mg by oral route. 02/12 completed Not Available Not Available Not Available oxycodone 5 mg tablet 04/16 completed Not Available Not Available Not Available Benadryl 25 mg capsule Take 25 mg by oral route. 12/07 completed Not Available Not Available Not Available enoxaparin 40 mg/0.4 mL subcutaneou s syringe 11/25 completed Not Available Not Available Not Available azithromyci n 500 mg tablet Take 1 tablet every day by oral route for 3 days. 10/01 completed Not Available Not Available Not Available metaxalone 800 mg tablet 12/11 completed Not Available Not Available Not Available Premarin 0.625 mg tablet Take 0.625 mg by oral route. 12/07 completed Not Available Not Available Not Available Spiriva with HandiHaler 18 mcg and inhalation capsules Inhale 1 capsule every day by inhalatio n route. 2024 active Not Available Not Available Not Avai lable nitrofurant oin monohydrate /macrocryst als 100 mg capsule 02/22 completed Not Available Not Available Not Available Bentyl 10/29 completed Not Available Not Available Not Available Baby Aspirin 1 PO QD 10/29 completed Not Available Not Available Not Available varenicline tartrate 1 mg tablet TAKE 1 TABLET BY MOUTH TWICE DAILY 07/06 completed Not Available Not Available Not Available Januvia 100 mg tablet Take 1 tablet every day by oral route for 90 days. 08/11 completed Not Available Not Available Not Available Pulmicort Flexhaler 180 mcg/actuati on breath activated 02/22 completed Not Available Not Available Not Available Cholestyram ine Light 4 gram oral powder Take 1 scoop 3 times a day by oral route for 30 days. 02/22 completed Not Available Not Available Not Available Zirgan 0.15 % eye gel INSTILL 1 DROP INTO AFFECTED EYE(S) BY OPHTHALMI C ROUTE 5 TIMES PER DAY UNTIL CORNEAL ULCER HEALS, THEN 1 DROP 3 TIMES PER DAY FOR 7 DAYS 06/22 completed Not Available Not Available Not Available gatifloxaci n 0.5 % eye drops 06/22 completed Not Available Not Available Not Available Tradjenta 5 mg tablet 1 daily 11/25 completed Not Available Not Available Not Available alogliptin 25 mg tablet Take 25 mg by oral route. 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 02/12 completed Not Available Not Available Not Available Dexcom G6 Transmitter device 05/30 completed Not Available Not Available Not Available Vitals Date Recorded Body height Body mass index (BMI) Body weight Body temperature Respiratory rate Heart rate Systolic blood pressure Diastolic blood pressure Provider Name and Address Organization Details Last Updated DateTime 4 162.56 cm 24.3 kg/m2 14479.6 8 g 97.7 [degF] 16 /min 73 /min 134 mm[Hg] 84 mm[Hg] Amanda Rodriguez [place] [facility] 4 11:01:20 Date Recorded Body height Body mass index (BMI) Body weight Oxygen saturation Oxygen saturation in Arterial blood by Pulse oximetry Heart rate Systolic blood pressure Diastolic blood pressure Provider Name and Address Organization Details Last Updated DateTime 4 162.56 cm 23.3 kg/m2 26562.5 6 g 98 % 98 % 82 /min 132 mm[Hg] 90 mm[Hg] Denisa Croft MA [place] - [facility] 4 15:35:17 Date Recorded Body height Body mass index (BMI) Body weight Heart rate Systolic blood pressure Diastolic blood pressure Provider Name and Address Organization Details Last Updated DateTime 4 162.56 cm 24.5 kg/m2 88050.7 1 g 85 /min 110 mm[Hg] 66 mm[Hg] Amber Crawford MA [facility] 4 10:12:44 Date Recorded Body height Body mass index (BMI) Body weight Heart rate Systolic blood pressure Diastolic blood pressure Provider Name and Address Organization Details Last Updated DateTime 4 162.56 cm 25.1 kg/m2 74970.4 9 g 66 /min 132 mm[Hg] 84 mm[Hg] Amber Crawford MA [facility] 4 12:19:24 Date Recorded Body height Body mass index (BMI) Body weight Oxygen saturation Oxygen saturation in Arterial blood by Pulse oximetry Heart rate Systolic blood pressure Diastolic blood pressure Provider Name and Address Organization Details Last Updated DateTime 5 162.56 cm 26 kg/m2 43548.5 5 g 96 % 96 % 56 /min 130 mm[Hg] 84 mm[Hg] Amber Crawford MA [facility] 5 11:54:32 Social History Question Answer Notes LastModified by Organizat ion Details LastModified Time Tobacco Smoking Status Current Every Day Smoker Amanda Rodriguez MA [facility] 05/30/2023 12:03:34 What Is Your Level Of Alcohol Consumption? None Information not available 02/04/2020 Are You Blind Or Do You Have Difficulty Seeing? No Information not available 06/22/2020 What Is Your Level Of Caffeine Consumption? Heavy Information not available 05/30/2023 How Much Tobacco Do You Chew? None Information not available 02/04/2020 In The 14 Days Before Symptom Onset, Have You Had Close Contact With A Laboratory-confir med COVID-19 While That Case Was Ill? No Information not available 07/04/2020 In The 14 Days Before Symptom Onset, Have You Had Close Contact With A Person Who Is Under Investigation For COVID-19 While That Person Was Ill? No Information not available 07/04/2020 Have You Been To An Area Known To Be High Risk For COVID-19? No Information not available 07/04/2020 Are You Currently Employed? Yes Information not available 06/22/2020 Are You Deaf Or Do You Have Serious Difficulty Hearing? No Information not available 06/22/2020 What Type Of Diet Are You Following? REGULAR High Protein/ carb Information not available 02/04/2020 Which Illicit Or Recreational Drugs Have You Used? None Information not available 02/04/2020 Do You Or Have You Ever Used E-cigarettes Or Vape? 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 No Information not available 11/09/2020 Marital Status Informatio n not available 02/04/2020 What Was The Date Of Your Most Recent Tobacco Screening? 04/20/2024 Information not available 04/20/2024 What Is Your Relationship Status? Information not available 06/22/2020 Do You Use Your Seat Belt Or Car Seat Routinely? Yes [email or web address] Information not available 08/06/2022 Are You Sexually Active? No [email or web address] Information not available 09/27/2022 Do You Have Smoke And Carbon Monoxide Detectors In Your Home? Yes Information not available 11/09/2020 Are You Passively Exposed To Smoke? No Information no t available 11/09/2020 Do You Or Have You Ever Used Smokeless Tobacco? Never Used Smokeless Tobacco Information not available 02/04/2020 How Much Tobacco Do You Smoke? 1 PPD Information not available 05/30/2023 General Stress Level High Information not available 02/04/2020 Do You Feel Stressed (tense, Restless, Nervous, Or Anxious, Or Unable To Sleep At Night)? [id number] Information not available 05/30/2023 Do You Use Any Illicit Or Recreational Drugs? No Information not available 07/04/2020 Has Tobacco Cessation Counseling Been Provided? No Information not available 10/29/2021 On What Date Was Tobacco Cessation Counseling Provided? 04/20/2024 Information not available 04/20/2024 Do You Or Have You Ever Used Any Other Forms Of Tobacco Or Nicotine? No Information not available 10/29/2021 Sex: Female Functional Status Question Answer Note LastModified by Organization D etails LastModified Time Are you able to care for yourself? Yes Information n ot available 06/22/2020 Mental Status None recorded. Family History Relationship Description Onset Age of this Age Resolved Age Notes LastModified by Organization Details LastModified Time Mother Carcinoma in situ of colon [email or web address] Not available 2015 10:52:27 Mother Migraine [email or web address] Not available 05/02/2015 10:52:27 Father Coronary arterioscler osis [email or web address] Not available 2015 10:52:27 Father Diabetes mellitus [email or web address] Not available 2015 10:52:27 Father Heart disease [email or web address] Not available 2015 10:52:27 Father Hyperlipidem ia [email or web address] Not available 2015 10:52:27 Father History of hypertension [email or web address] Not available 10:52:27 Father Myocardial infarction [email or web address] Not available 05/02 10:52:27 Brother Alcohol abuse [email or web address] Not available 2015 10:52:27 Brother Diabetes mellitus [email or web address] Not available 2015 10:52:27 Sister Asthma [email or web address] Not available 10:52:27 Sister Disorder of thyroid gland [email or web address] Not available 2015 10:52:27 Medical History Condition Response High Blood Pressure Y Anxiety Disorder Y Muscle, Joint, or Bone Problems Y Acid Reflux (GERD) Y Cancer Y High Cholesterol Y Thyroid Problems Y GI Problems Y Anemia Y Diabetes Y Asthma Y Gynecological History Statement/Question Response If Post Menopausal, Age at Menopause 29 Date of Last Mammogram 12/08/2018 Date of LMP Sexually Active? N Date of Last Pap Smear Most Recent Mammogram 12/08/2018 Obstetrics History GPAL:G 4 P 3 1 0 3 Type Value Multiple Births 0 Full Term 3 Induced 0 Spontaneous 0 Premature 1 Living 3 Ectopics 0 Total 4 Immunizations Vaccine Type Date Status Note Provider Nam e and Address Organization Details Recorded Time Influenza, split virus, trivalent, preservative 10/15/201 5 completed Not Available [facility] 02/01/2021 18:33:18 Influenza, split virus, quadrivalent, preservative 7 completed Not Available [facility] 05/01/2019 02:34:48 Influenza, split virus, quadrivalent, preservative 5 completed Not Available [facility] 05/01/2019 02:41:24 Past Encounters Encounter ID Performer Location Encounter Start Date Encounter Closed Date Diagnosis/Indication Diagnosis SNOMED-CT Code Diagnosis ICD10 Code Diagnosis Note [id number] ISAAC Hernandez [address] [place] [address] 06/27/2014 10:50:54 06/27/2014 11:38:56 Asthma [id number] Angie Montero MA [facility] [address] [place] [address] 10/18/2014 09:36:35 10/18/2014 10:54:34 Fall Rib pain 045067060 [id number] [facility] [address] [place] [address] 12/13/2014 14:40:27 12/13/2014 15:11:08 Right upper quadrant pain [id number] Angie Montero MA [facility] [address] [place] [address] 12/20/2014 18:07:33 12/21/2014 09:12:05 Right upper quadrant pain 671631485 Steatosis of liver 534980612 Gallstone [id number] Chely Whittaker MA [facility] [address] [place] [address] 01/03/2015 14:33:32 01/03/2015 15:46:08 Gallstone [id number] Steatosis of liver 463278472 Asthma 853394685 Cholelithi asis with obstruction 08411961 Hiatal hernia 16024725 Abdominal pain 05416861 [id number] ISAAC Hernandez [address] [place] [address] 02/01/2015 10:31:54 02/01/2015 12:09:05 Administration of influenza vaccine 09542822 Z23 [id number] ISAAC Hernandez [facility] [address] [place] [address] 04/27/2015 13:49:51 04/27/2015 15:08:34 Acute bronchitis 47660235 J20.9 [id number] ISAAC Hernandez [facility] [address] [place] [address] 04/28/2015 14:14:46 04/28/2015 14:47:56 Pneumonia 998223617 J18.9 [id number] ISAAC Hernandez [facility] [address] [place] [address] 05/02/2015 10:49:53 05/02/2015 11:28:17 Pneumonia 292541236 J18.9 [id number] Julia Carroll PA-C [facility] [address] [place] [address] 02/23/2016 15:49:37 02/23/2016 16:14:49 Generalized anxiety disorder 58924168 F41.1 [id number] Julia Carroll PA-C [facility] [address] [place] [address] 03/25/2016 10:54:11 03/25/2016 12:16:36 Type 2 diabetes mellitus 04326305 E11.65 Essential hypertension 53068272 I10 Osteonecrosis of hip 444 463050 M87.852 Hypothyroidism 52027667 E03.9 [id number] Julia Carroll PA-C [facility] [address] [place] [address] 04/03/2016 17:04:48 04/09/2016 14:40:50 Type 2 diabetes mellitus 03107739 E11.65 Hypertriglyceridemia 302 526258 E78.1 [id number] Tanesha Anders MA [facility] [address] [place] [address] 06/04/2016 10:29:10 06/04/2016 11:39:32 Essential hypertension 59696235 I10 Diabetes mellitus 251218 09 E11.9 [id number] ISAAC Hernandez [facility] [address] [place] [address] 07/16/2016 10:30:17 07/16/2016 12:04:47 Type 2 diabetes mellitus 05815988 E11.65 Hypothyroidism 03823086 E00.1 Malignant neoplasm of uterus 410829151 C55 [id number] Julia Carroll PA-C [facility] [address] [place] [address] 12/11/2016 15:00:38 12/11/2016 16:46:50 Obesity 085161244 E66.9 Pain in right knee 33447 23236 11395 M25.561 Essential hypertension 10087415 I10 Right uppe r quadrant pain 873612435 R10.11 [id number] Julia Carroll PA-C [facility] [address] [place] [address] 02/24/2017 11:14:15 02/24/2017 15:04:58 Diaphragmatic hernia 53204246 K44.9 [id number] Tanesha Anders MA [facility] [address] [place] [address] 03/11/2017 15:00:55 03/12/2017 09:41:09 Administration of influenza vaccine 43322757 Z23 [id number] Julia Carroll PA-C [facility] [address] [place] [address] 04/01/2017 18:15:27 04/01/2017 20:26:20 Steatosis of liver 645952827 K76.0 Cholelithi asis with obstruction 50822819 K80.81 Right uppe r quadrant pain 115142195 R10.11 Acute bronchitis 4903819 2 J20.9 Acute maxi llary sinusitis 31116208 J01.00 Generalize d anxiety disorder 48413451 F41.1 [id number] Julia Carroll PA-C [facility] [address] [place] [address] 04/11/2017 10:31:22 04/11/2017 12:39:30 Type 2 diabetes mellitus 69769119 E11.65 [id number] ISAAC Hernandez [facility] [address] [place] [address] 04/16/2017 16:39:00 04/16/2017 17:14:56 Essential hypertension 48918365 I10 Hypothyroidism 47617503 E00.1 [id number] Julia Carroll PA-C [facility] [address] [place] [address] 05/05/2017 14:40:37 05/05/2017 16:38:20 [id number] Julia Carroll PA-C [facility] [address] [place] [address] 06/11/2017 10:55:48 06/11/2017 16:12:27 Type 2 diabetes mellitus 86817270 E11.65 Abdominal pain 77331245 R10.12 Hiatal hernia 29292105 K 44.9 Acute maxi llary sinusitis 98240070 J01.00 Generalize d anxiety disorder 60771858 F41.1 [id number] Julia Carroll PA-C [facility] [address] [place] [address] 11/25/2017 14:49:59 11/25/2017 16:49:09 Early dumping syndrome 981183014 K91.1 Reactive hypoglycemia 31 7006 E16.1 Essential hypertension 42830006 I10 [id number] Julia Carroll PA-C [facility] [address] [place] [address] 12/11/2017 15:39:41 12/11/2017 16:46:45 Strain of trapezius muscle 161938152 S46.811S [id number] Julia Carroll PA-C [facility] [address] [place] [address] 07/15/2018 16:26:42 07/16/2018 10:59:20 Type 2 diabetes mellitus 08134424 E11.65 Chronic ob structive pulmonary disease 46893520 J41.0 Strain of trapezius muscle 944608150 S46.811S Essential hypertension 07484081 I10 Lumbar radiculopathy 128 887166 M54.16 [id number] Julia Carroll PA-C [facility] [address] [place] [address] 12/22/2018 10:44:04 12/22/2018 11:31:43 Acute bronchitis with bronchospasm 27672350 J20.8 [id number] Julia Carroll PA-C [facility] [address] [place] [address] 02/12/2019 14:25:45 02/12/2019 15:39:32 Ganglion cyst of left foot 2219921475 511653 M67.472 Type 2 rivera betes mellitus without complication 706114443 E11.9 [id number] Julia Carroll PA-C [facility] [address] [place] [address] 07/28/2019 09:26:17 08/04/2019 11:35:40 Asthma 607866944 J45.909 Chronic ob structive pulmonary disease 24608686 J41.0 [id number] Julia Carroll PA-C [facility] [address] [place] [address] 08/12/2019 14:25:43 08/13/2019 08:47:54 Pre-surgery evaluation 308129942 Z01.818 Chronic ob structive pulmonary disease 07755183 J41.0 Cortical s enile cataract 18105307 H25.972 [id number] Julia Carroll PA-C [facility] [address] [place] [address] 08/27/2019 10:45:45 08/30/2019 07:52:27 Ingrowing nail of toe of right foot 7564433796 [id number] L60.0 [id number] Julia Carroll PA-C [facility] [address] [place] [address] 02/04/2020 09:46:54 02/05/2020 10:58:41 Late dumping syndrome 433940333 K91.1 Type 2 rivera betes mellitus 29182540 E11.65 [id number] Julia Carroll PA-C [facility] [address] [place] [address] 02/14/2020 09:46:49 02/14/2020 12:57:15 Upper respiratory infection 09708688 J00 [id number] Julia Carroll PA-C [facility] [address] [place] [address] 02/25/2020 10:31:50 02/25/2020 16:23:17 Viral conjunctivitis 20330697 B30.0 [id number] Julia Carroll PA-C [facility] [address] [place] [address] 06/22/2020 09:34:15 06/23/2020 08:17:55 Type 2 diabetes mellitus 85015722 E11.65 [id number] Julia Carroll PA-C [facility] [address] [place] [address] 07/04/2020 09:30:46 07/04/2020 18:02:46 Pain in right hip joint [id number] 74066 M25.069 [id number] Denisa Croft MA [facility] [address] [place] [address] 07/06/2020 16:14:31 07/10/2020 23:12:24 Long-term drug therapy 997023937 Z79.427 [id number] Julia Carroll PA-C [facility] [address] [place] [address] 11/09/2020 14:45:44 11/09/2020 15:39:01 Pain in right knee 5959731375 07607 M25.561 Pre-surger y evaluation 446647000 Z01.818 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 395282965 E06.3 [id number] Julia Carroll PA-C [facility] [address] [place] [address] 10/29/2021 10:23:40 10/29/2021 11:12:54 Moderate persistent asthma 555884895 J45.40 Strain of right trapezius muscle 5394322937 1750621 S29.012A Generalize d anxiety disorder 60047209 F41.1 [id number] Julia Carroll PA-C [facility] [address] [place] [address] 06/19/2022 16:39:40 06/25/2022 10:14:58 Generalized anxiety disorder 82575192 F41.1 Moderate p ersistent asthma 353355536 J45.40 Strain of trapezius muscle 435803998 S46.811S Essential hypertension 42941640 I10 Lumbar radiculopathy 128 894065 M54.16 Overweight 705981340 E66 .3 [id number] Julia Carroll PA-C [facility] [address] [place] [address] 07/09/2022 16:19:52 07/10/2022 12:43:03 Long-term drug therapy 716409937 Z79.899 Pain in ri ght hip joint 9767598239 89850 M25.551 Overweight 569539986 E66 .3 [id number] Julia Carroll PA-C [facility] [address] [place] [address] 07/12/2022 15:32:22 07/14/2022 12:34:31 Lumbar radiculopathy 655744153 M54.16 Overweight 313545335 E66 .3 [id number] Julia Carroll PA-C [facility] [address] [place] [address] 08/06/2022 10:43:57 08/08/2022 16:27:16 Lumbar radiculopathy 870649072 M54.16 Cervical radiculopathy 47197820 M54.12 Overweight 398458312 E66 .3 [id number] ISAAC Hernandez [facility] [address] [place] [address] 09/04/2022 11:18:56 09/05/2022 09:31:23 Tobacco dependence syndrome 37527246 F17.290 Overweight 741717318 E66 .3 [id number] Julia Carroll PA-C [facility] [address] [place] [address] 09/27/2022 11:44:16 10/01/2022 12:55:49 Cervical radiculopathy 34030639 M54.12 Lumbar radiculopathy 128 675727 M54.16 Overweight 448924125 E66 .3 [id number] Julia Carroll PA-C [facility] [address] [place] [address] 11/21/2022 10:41:29 11/26/2022 10:03:51 Cervical radiculopathy 32080728 M54.12 Essential hypertension 44371559 I10 [id number] Julia Carroll PA-C [facility] [address] [place] [address] 04/16/2023 14:36:06 04/17/2023 11:05:41 Type 2 diabetes mellitus without complication 805252177 E11.9 Overweight 426659471 E66 .3 Mixed anxi ety and depressive disorder 741826741 F41.8 Lumbar radiculopathy 128 309740 M54.16 Essential hypertension 57600247 I10 [id number] Julia Carroll PA-C [facility] [address] [place] [address] 05/30/2023 11:51:23 06/03/2023 10:21:38 Angina co-occurrent and due to coronary arteriosclerosis 6066656239 8657433 I25.112 Type 2 rivera betes mellitus 13083479 E11.65 Overweight 113731278 E66 .3 [id number] Julia Carroll PA-C [facility] [address] [place] [address] 07/07/2023 14:43:10 07/11/2023 00:24:33 Disorder of pharynx 92765678 J39.2 [id number] Julia Green MD [facility] ([facility]) [address] [place] [address] 07/22/2023 10:54:09 07/31/2023 22:07:16 Deviated nasal septum 484916688 J34.2 Chronic rhinitis 4338460 6 J31.0 Chronic pharyngitis 1400 04 J31.2 no lesions [id number] Julia Carroll PA-C [facility] [address] [place] [address] 10/02/2023 15:22:06 10/03/2023 12:40:20 Near syncope 578378570 R55 Essential hypertension 56915508 I10 Overweight 763771151 E66 .3 Bilateral cramp of muscle of lower limbs 5952575388 9583102 R25.2 [id number] KAYLI BLACK NP [facility] [address] [place] [address] 12/08/2023 09:36:41 12/10/2023 10:19:47 Menopausal flushing 078957298 N95.1 Currently on estradiol 1 mg pill twice a week.Discu ssed risks with HRT and increase age.B/P in office today 110/66Pati ent is willing to work to wean off estrogenPl an is to do 1 pill twice a week and then at 59 (Apr 2024) go down to once a week and then by 60 wean off.Pt is agreeable to plan and is well aware of increased risk of heart attack, Smoker 37030824 F17.245 [id number] KAYLI BLACK NP [facility] [address] [place] [address] 12/22/2023 11:49:38 12/23/2023 13:59:17 Gynecologic examination 70229696 Z01.419 Custodial Manager exam completedB reast and thyroid WNLDenies any family history of breast, ovarian, pancreatic , endometria l cancer 1. Pap smear done 1994 prior to hysterecto my2. STI screening {{complete d declined *}}.3. Pt is post menopausal 4. Discussed breast self awareness5 . Patient is refusing to have Mammogram completed. 6. Last Colonoscop y: 12/28/2014. Patient is refusing to have colonoscop y done7. Discussed when to return to clinic for /EQUITY TRADER complaints . Menopause 000524806 N95. 1 pt is post menopausal Discussed vaginal changes, moisturize rs and lubricatio nDiscussed returning to clinic with any vaginal bleedingDi scussed Calcium and Vitamin D supplement ation Menopausal flushing 1983 49988 N95.1 Currently on estradiol 1 mg pill twice a week.Discu ssed risks with HRT and increase age.B/P in office today 132/84Pati ent is willing to work to wean off estrogenPl an is to do 1 pill twice a week and then at 59 (Apr 2024) go down to once a week x 6 monthsIn April, the prescripti on will be changed to once weekly for 6 months then she will be off medication Pt is agreeable to plan and is well aware of increased risk of heart attack, Smoker 66811550 F17.234 [id number] Julia Carroll PA-C [facility] [address] [facility] [place] [address] 04/20/2024 11:36:56 04/23/2024 09:52:22 Moderate persistent asthma 504786146 J45.40 Essential hypertension 38131102 I10 Bilateral cramp of muscle of lower limbs 8359254070 3472666 R25.2 Lumbar radiculopathy 128 916078 M54.16 [facility] 918042976 R11.0 Chronic ob structive pulmonary disease 14533947 J41.0 Health Concerns Section Related Observation LastModified by Organization Detai ls LastModified Time None Recorded Concern Status LastModified by Organization Details LastModified Time None Recorded Advance Directives Directive None Recorded Payers Encounter Date Sequence Insurance Name Policy Number Policy Ng Covered Member ID Ng Member ID Guarantor Name 07/22/2023 1 [employer] [place] 2020 (MEDICAID REPLACEMENT - HMO) Nancy Zhang [id number] Nancy Zhang 10/02/2023 1 [employer] [place]AC[place] - [place]MO) Nancy Zhang [id number] Nancy Zhang 12/08/2023 1 [employer] [place] - [place]MO) Nancy Zhang [id number] Nancy Zhang 12/22/2023 1 [employer] [place] - [place]MO) Nancy Zhang [id number] Nancy Zhang Notes Date Note Type Note Provider Name and Address Organization Details Recorded Time 07/22/2023 text/html Pt complaining s he had nasal drainage and chest congestion when she coughed up something that looked like tissue Julia Green MD Attn: [address] [place], [address], [facility] [place] 07/22/2023 11:15:17 10/02/2023 text/html foot started cramping...took a flexeril...foot wouldnt stop cramping...trying to walk it out and nearly passed out..5 minutes went to bathroom..then went to bed and went to sleep Julia Carroll PA-C Attn: [address] [place], [address], [facility] 10/02/2023 15:59:15 12/08/2023 text/html Nancy Zhang a 58yo with HX of HTN, DM, asthma and Uterine/Cervical cancer here for refill on her estrogen. Hysterectomy was done in 1994 for uterine/cervical cancer. Initially she had both ovaries. Due to cysts over the years she ended up with BSO. With removal of her last ovary, she was placed on estrogen 1mg daily. She has decreased the frequency she is taking estrogen to 1 pill twice a week to help with severe hot flashes.She does not want to use a patch and prefers to continue on pills. KAYLI BLACK NP Attn: Accounting,[address] [facility], [place], [address], [facility] 12/08/2023 12:09:45 12/22/2023 text/html Nancy carey 58yo with HX of HTN, DM, asthma and Uterine/Cervical cancer presenting for annual gynecologist exam. Hysterectomy was done in 1994 for uterine/cervical cancer. Initially she had both ovaries. Due to cysts over the years she ended up with BSO. With removal of her last ovary, she was placed on estrogen 1mg daily. She has decreased the frequency she is taking estrogen to 1 pill twice a week to help with severe hot flashes. She does not want to use a patch and prefers to continue on pills. Denies any /EQUITY TRADER complaints. Denies any breast changes/pain, fatigue/cold intolerance/hair loss/dry skin. Denies dyspareunia, pelvic pressure or bowel movement changes.Denies SOB/chest pain/dizziness. Denies any fever or chills. Denies any family history of breast, ovarian, endometrial or pancreatic cancer. LMP: 1994 prior to hysterectomyLast Mammogram: 12/08/2018Last Colonoscopy: 12/28/2014Patient {{is is not*}} sexually active for the past 5 years. KAYLI BLACK NP Attn: Accounting[address] [facility], [place], [address], [facility] 12/22/2023 12:54:11 04/20/2024 text/html needs refills an d some changes...wants to decrease lisinopril to 2omg...wants to have gabapentin increased to combat the radicular pain....refuses bloodwork vs no insurance Julia Carroll PA-C Attn: Accounting,[address] [facility], [place], [address], [facility] 04/20/2024 12:11:58 OBGyn Episode No OBEpisode recorded.
--- OUTSIDE RECORDS SUMMARY | 2024-07-25 17:47 | XMS_ITS | Encounter Summary ---
Author Organization [facility] Healthcare Address [address] [place] [address] Care Team Providers Care Clock And Watch Hands Mounter Name Role Phone Nasir Jung MD Primary Care Provider [phone] Jerry Carroll Primary Care Provider [phone] Kye Oro MD Unavailable [phone] Murray Nava MD Unavailable [phone] Joe Renae Unavailable [phone] Encounter Details Date Type Department Care Team (Late st Contact Info) Description 07/10/2017 Documentation [facility] Operating Room [address] [place] [address] Uma Kiser RN Social History Tobacco Use Types Packs/Day Years Used Date Smoking Tobacco: Former Smokeless Tobacco: Never Alcohol Use Standard Drinks/Week Comments No 0 (1 standard drink = 0.6 oz pur e alcohol) Comments No Sex and Gender Information Value Date Recorded Sex Assigned at Not on file Legal Sex Female 3:46 AM VEHICLE DETAILER Gender Identity Not on file Sexual Orientation [...] after last positive and any effective antibiotics. [facility] 02/21/2015 02/21/2015 07/16/2017 11:08 AM CDT COVID: Suspected 02/13/2020 02/13/2020 02/13/2020 8:53 PM VEHICLE DETAILER Respiratory Infection (CHRIS), contact + droplet Comment:Automatically added due to negative COVID-19 result. 02/13/2020 02/13/2020 02/27/2020 3:0 6 AM VEHICLE DETAILER COVID: Suspected 02/14/2020 02/14/2020 02/14/2020 12:38 PM VEHICLE DETAILER COVID: Suspected 02/22/2020 02/22/2020 02/24/2020 1:35 AM VEHICLE DETAILER COVID: Suspected 04/11/2022 04/11/2022 04/12/2022 3:05 AM VEHICLE DETAILER COVID: Suspected 04/11/2022 04/11/2022 04/12/2022 5:38 AM VEHICLE DETAILER documented as of this encounter Care Teams Clock And Watch Hands Mounter Relationship Specialty Start Date End Date Nasir Jung MD PCP - General 07/10/17 11/12/17 Jerry Carroll PA [address] [place] [address] PCP - General Family Practice 11/13/17 Kye Oro MD [address] [place] [address] Surgeon Orthopedic Surgery 11/24/20 Murray Nava MD [address] [facility] [address] [place] [id number] Referring Physician Neurosurgery 08/02/22 Joe Renae PA [address], [place] [address] Physician Deputy Sheriff K9 Handler Neurosurgery 08/02/22 documented as of this encounter
--- OUTSIDE RECORDS SUMMARY | 2024-07-25 17:47 | XMS_ITS | Clinical Summary ---
Author Organization [facility] Address [address] [place] [address] Phone Care Team Providers Care Vehicle Technician Name Role Phone JULIA MEJIAS PA-C Primary Care Provider [phone] Reason for Visit and Chief Complaint The Chief Complaint is: REFERRED BY PILLO DENISE FOR LOW BACK PAIN ~C/O PAIN IN LOW BACK THAT RADIATES DOWN LEFT LEG TO BOTTOM OF FOOT X 2 MONTHS ~IMAGING- MRI [facility] 06/09/23 ~PHYSICAL THERAPY-NONE~PAIN MANAGEMENT-NONE ~SURGERY-NONE ~IS DIABETIC Plan of Treatment Pending Tests Order Diagnosis Results Due Ordering P rovider Pain Management CPT - Epidural Steroid Inj Transforaminal, Lumbar or Sacral 1st level Spinal stenosis, lumbar region with neurogenic claudication 10/25/23 MARTY ESCALONA ANP- Last Documented On 4 2:19PM ; [facility] Instructions to patient Intervention and counseling on cessation of tobacco use : Patient recieved smoking cessation handout Last Documented On 4 11:13AM ; [facility] Assessments Includes: Assessments from this encounter Findings - 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 [M46.08 - Spinal enthesopathy, sacral and sacrococcygeal region] - Last Documented On 08/18/2023 5:05PM ; [facility] - Lumbar spondylosis with radiculopathy [M47.26 - Other spondylosis with radiculopathy, lumbar region] - Last Documented On 08/18/2023 5:05PM ; [facility] - Lumbar stenosis with neurogenic claudication [M48.062 - Spinal stenosis, lumbar region with neurogenic claudication] - Last Documented On 08/18/2023 5:05PM ; [facility] - Myalgia [M79.18 - Myalgia, other site] - Last Documented On 08/18/2023 5:05PM ; [facility] - Chronic pain syndrome [G89.4 - Chronic pain syndrome] - Last Documented On 08/18/2023 5:05PM ; [facility] Instructions Includes: Instructions from this encounter Instructions to patient Intervention and counseling on cessation of tobacco use : Patient recieved smoking cessation handout Last Documented On 4 11:13AM ; [facility] Medical Equipment - Implanted Devices Includes: Current Devices No Medical Equipment Recorded Medications Includes: Medications discussed during this encounter and other current Medications Current Medications (continue as prescribed) Cyclobenzaprine HCl 10 MG Oral Tablet 09/25/2023 Pro vider: Diagnosis: Last Documented On 09/25/2023 1:16PM By Ruth Ann YOON ; [facility] Vitamin D 50 MCG (1999 [place]) Oral Capsule 08/18/2023 P rovider: Diagnosis: Last Documented On 4 11:12AM By Ruth Ann YOON ; [facility] Vitamin C Plus 1000 MG Oral Tablet 08/18/2023 Provid er: Diagnosis: Last Documented On 4 11:11AM By Ruth Ann YOON ; [facility] B Complex Oral Capsule 08/18/2023 Provider: Diagnosis: Last Documented On 4 11:10AM By Ruth Ann YOON ; [facility] Multivitamin Oral Tablet 08/18/2023 Provider: Diagnosis: Last Documented On 4 11:10AM By Ruth Ann YOON ; [facility] Estradiol 1 MG Oral Tablet 08/18/2023 Provider: Diagnosis: TWICE A WEEK Last Documented On 4 11:08AM By Ruth Ann YOON ; [facility] Benadryl Allergy 25 MG Oral Tablet 08/18/2023 Provid er: Diagnosis: Last Documented On 4 11:06AM By Ruth Ann YOON ; [facility] Tylenol Extra Strength 500 MG Oral Tablet 08/18/2023 Provider: Diagnosis: Last Documented On 4 11:07AM By Ruth Ann YOON ; [facility] Ibuprofen 200 MG Oral Tablet 08/18/2023 Provider : Diagnosis: Last Documented On 4 11:07AM By Ruth Ann YOON ; [facility] Adult Aspirin Regimen 81 MG Oral Tablet Delayed Releas e 08/18/2023 Provider: Diagnosis: Last Documented On 4 11:08AM By Ruth Ann YOON ; [facility] Fluticasone Propionate 50 MC G/ACT Nasal Suspension 07/22/2023 Provider: JULIA KAPLAN Diagnosis: Last Documented On 4 11:04AM By Ruth Ann YOON ; [facility] Albuterol Sulfate HFA 108 (9 0 Base) MCG/ACT Inhalation Aerosol Solution 07/22/2023 Provider: JULIA MEJIAS PA-C Diagnosis: Last Documented On 4 11:04AM By Ruth Ann YOON ; [facility] Levothyroxine Sodium 100 MCG Oral Tablet 07/12/2023 Provider: JULIA MEJIAS PA-C Diagnosis: Last Documented On 4 11:04AM By Ruth Ann YOON ; [facility] Lisinopril 40 MG Oral Tablet 04/16/2023 Provider: JULIA MEJIAS PA-C Diagnosis: Last Documented On 4 11:05AM By Ruth Ann YOON ; [facility] Dicyclomine HCl 10 MG Oral Capsule 04/16/2023 Provid er: JULIA MEJIAS PA-C Diagnosis: Last Documented On 4 11:05AM By Ruth Ann YOON ; [facility] Gabapentin 300 MG Oral Capsule 04/15/2023 Provider: JULIA MEJIAS PA-C Diagnosis: Last Documented On 4 11:05AM By Ruth Ann YOON ; [facility] Medications Administered Includes: Administered Medications from this encounter No Administered Medications Recorded Vital Signs Includes: Vital Signs from this encounter Vital Name 08/18/2023 11:01A Blood Pressure Sitting R 100/70 Pulse Rate-Sitting (bpm) 81 Temp-Temporal 96.1 Height (in) 63.75 Weight (lb) 138 Body Mass Index 23.9 Body Surface Area (m2) 1.7 Pain Level 4 Oxygen Saturation (%) 99 Last Documented: On 08/18/2023 1:59PM ; [facility] Results Includes: Results discussed during this encounter Drugs of abuse screen [facility] Ordered by MARTY ESCALONA [facility]- on Collected: Reported: 08/18/2023 10:59 Last Documented On 4 10:59AM ; [facility] Reviewed on 08/18/2023; All test results are final unless otherwise noted. Internal QC Acceptable None Last Documented On 4 10:58AM ; [facility] Lot # & Exp. Date [id number], 2025-01-27 N (Normal) Last Documented On 4 10:58AM ; [facility] Amphetamines NEG (NEG) N (Normal) Last Documented On 4 10:58AM ; [facility] Barbiturates NEG (neg) N (Normal) Last Documented On 4 10:58AM ; [facility] Benzodiazepines NEG (neg) N (Normal) Last Documented On 4 10:58AM ; [facility] Cocaine NEG (neg) N (Normal) Last Documented On 4 10:58AM ; [facility] Ecstasy NEG (Neg) N (Normal) Last Documented On 4 10:58AM ; [facility] Methamphetamines NEG (neg) N (Normal) Last Documented On 4 10:58AM ; [facility] Methadone NEG (Neg) N (Normal) Last Documented On 4 10:58AM ; [facility] Morphine NEG (Neg) N (Normal) Last Documented On 4 10:58AM ; [facility] Oxycodone NEG (Neg) N (Normal) Last Documented On 4 10:58AM ; [facility] Phencyclidine NEG (NEG) N (Normal) Last Documented On 4 10:58AM ; [facility] TCA/Tricyclic Antidepressants NEG (neg) N (Normal) Last Documented On 4 10:58AM ; [facility] Cannabis NEG (neg) N (Normal) Last Documented On 4 10:58AM ; [facility] History of Present Illness Includes: History of [...] dextroscoliosis centered at T8-9. Bilateral hip arthroplasty Social History Description Last Updated Current smoker 08/18/2023 Last Documented On 4 5:05PM ; [facility] Difficulty walking 08/18/2023 Last Documented On 4 5:05PM ; [facility] No consumption of alcohol 08/18/2023 Last Documented On 4 5:05PM ; [facility] Not using drugs 08/18/2023 Last Documented On 4 5:05PM ; [facility] Smoking packs of cigarettes per day 1.5 08/18/2023 Last Documented On 4 5:05PM ; [facility] Smoking Status Unknown Procedures and Surgical History Includes: Procedures from this encounter Procedures Code Diagnosis Performing Provider Service Location Service Date MRI PELVIS W/O CONTRAST 72560 Spinal enthesopathy, sacral and sacrococcygeal region MARTY ESCALONA [facility] 08/26/2023 Last Documented On 4 1:57PM ; [facility] CLINIC VISIT T1015 Spinal stenosis, lumbar region with neurogenic claudication, Spinal enthesopathy, sacral and sacrococcygeal region, Other spondylosis with radiculopathy, lumbar region, Chronic pain syndrome MARTY ESCALONA [facility] 08/18/2023 Last Documented On 4 12:03PM ; [facility] DRUG TEST PRESEUMPT ANY NUMBER OF CLASSES-CUP DIPSTICK CARD (CLIA WAIVED) 39002 Chronic pain syndrome MARTY ESCALONA [facility] 08/18/2023 Last Documented On 4 12:03PM ; [facility] intervention and counseling on cessation of tobacco use : Patient recieved smoking cessation handout 4000F Last Documented On 4 11:13AM ; [facility] use of tobacco assessment performed 1000F Last Documented On 4 11:13AM ; [facility] review of medications documented 1160F Last Documented On 4 11:13AM ; [facility] assessment of suicide risk performed Last Documented On 4 10:55AM ; [facility] screening for adult depression: impressi on and score five Last Documented On 4 10:55AM ; [facility] standardized depression screening: posit jacob for symptoms Last Documented On 4 10:55AM ; [facility] Clinical summary provided to patient ~ Patient understands and agrees with treatment plan. Questions answered Last Documented On 4 10:53AM ; [facility] SOAPP-R: total score 14 Last Documented On 4 10:53AM ; [facility] Surgical History Last Updated No Pacemaker 08/18/2023 Last Documented On 4 5:05PM ; [facility] Medical History Includes: Medical History addressed during this encounter Description Last Updated managed care liaison 08/18/2023 Last Documented On 4 5:05PM ; [facility] CT/MRI [facility] 08/17 Last Documented On 4 5:05PM ; [facility] Currently wearing eyeglasses 08/18/2023 Last Documented On 4 5:05PM ; [facility] Moderate to severe pain 08/18/2023 Last Documented On 4 5:05PM ; [facility] No Pain Pump 08/18/2023 Last Documented On 4 5:05PM ; [facility] No Spinal cord stimulator 08/18/2023 Last Documented On 4 5:05PM ; [facility] Please list all illnesses/co nditions you have been diagnosed with: [place] hernia repaired, dmt2,copd, emphysema, hypothyroid, htn, 08/18/2023 Last Documented On 4 5:05PM ; [facility] Please list all surgeries: P ig skin graft for diaphragmatic, repair of torn diaphragmatic, hysterectomy, appendectomy iraj hip prosthesis, rt knee replacement. rt inguinal hernia repair, appe, abisai, neck surgeryx2 , rt carpule tunnel, 08/18/2023 Last Documented On 4 5:05PM ; [facility] X-rays [facility], [facility] 4 Last Documented On 4 5:05PM ; [facility] Family History Includes: Family History addressed during this encounter Description Last Updated Family history [use for free text] 08/17 Last Documented On 4 5:05PM ; [facility] Family history of Bleeding disorder 09/2023 Last Documented On 4 5:05PM ; [facility] Family history of kidney disease 024 Last Documented On 4 5:05PM ; [facility] Family history of stroke/paralysis 08/17 Last Documented On 4 5:05PM ; [facility] Family history of stroke/paralysis 08/17 Last Documented On 4 5:05PM ; [facility] Family history of stroke/paralysis 08/17 Last Documented On 4 5:05PM ; [facility] Family history of stroke/paralysis 08/17 Last Documented On 4 5:05PM ; [facility] Fraternal history of family history of i schemic heart disease 08/18/2023 Last Documented On 4 5:05PM ; [facility] Fraternal history of stroke/paralysis Last Documented On 4 5:05PM ; [facility] Maternal history of Arthritis 08/18/2023 Last Documented On 4 5:05PM ; [facility] Other family history , please specify: 0 08/18/2023 Last Documented On 4 5:05PM ; [facility] Paternal history of family history of is chemic heart disease 08/18/2023 Last Documented On 4 5:05PM ; [facility] Paternal history of family history of ki dney disease 08/18/2023 Last Documented On 4 5:05PM ; [facility] Paternal history of stroke/paralysis 09/2023 Last Documented On 4 5:05PM ; [facility] Reported family history of seizures 09/2023 Last Documented On 4 5:05PM ; [facility] Reported family history of seizures 09/2023 Last Documented On 4 5:05PM ; [facility] Sororal history of Arthritis 08/18/2023 Last Documented On 4 5:05PM ; [facility] Sororal history of Bleeding disorder 09/2023 Last Documented On 4 5:05PM ; [facility] Review of Systems Includes: Review of Systems [...] Active Last Documented On 4 1:16PM ; [facility] traMADol HCl Allergy 08/18/2023 Active Last Documented On 4 1:16PM ; [facility] Sulfamethoxazole-Trimethoprim Allergy 08/18/2023 Active Last Documented On 4 1:16PM ; [facility] SHRIMP Allergy 08/18/2023 Active Last Documented On 4 1:16PM ; [facility] Penicillins Allergy 08/18/2023 Active Last Documented On 4 1:16PM ; [facility] NICKEL Allergy 08/18/2023 Active Last Documented On 4 1:16PM ; [facility] Lovenox Allergy 08/18/2023 Active Last Documented On 4 1:16PM ; [facility] Iodinated contrast media Allergy 08/18/2023 Active Last Documented On 4 1:16PM ; [facility] Amoxicillin Allergy 08/18/2023 Active Last Documented On 4 1:16PM ; [facility] Encounters Encounter Provider Location Date Check-In Time Check-Out Time Diagnosis PAIN MANAGEMENT NEW CONSULT [facility]Y [facility] 024 10:49AM 11:46AM Chronic Pain Syndrome,Spinal Stenosis Lumbar with Neurogenic Claudication,Spon dylosis with Radiculopathy Lumbar Region,Myalgia , Other Site (M79.18),Spinal Enthesopathy of Sacral and Sacrococcygeal Region Insurance Includes: Active Insurance Policies Plan Name Member ID Group # Subscriber Relationship Effect jacob Dates - [facility] [id number] MILLIE WOOTEN Self Clinical Notes Includes: Clinical Notes from this encounter * Progress note Date Encounter Last Documented by 08/18/2023 PAIN MANAGEMENT NEW CONSULT Last documented on 08/18/2023; 5:05 PM, MARTY HIGUERA; [facility] Chief Complaint The Chief Complaint is: REFERRED BY PILLO DENISE FOR LOW BACK PAIN C/O PAIN IN LOW BACK THAT RADIATES DOWN LEFT LEG TO BOTTOM OF FOOT X 2 MONTHS IMAGING-MRI [facility] 06/09/23 PHYSICAL THERAPY-NONE PAIN MANAGEMENT-NONE SURGERY-NONE IS [...] Score: 30=60% Date:08/18/23 Past Medical/Surgical History Reported: managed care liaison, Please list all illnesses/conditions you have been [...] Surgical / Procedural: No Pacemaker. Tests: X-rays [facility], [facility] and CT/MRI [facility]. Current Medication - Adult Aspirin Regimen [...] QC Acceptable Lot # & Exp. Date [id number], 2025-01-27 Normal Amphetamines NEG Normal Barbiturates NEG [...] X-ray/OUTSIDE XRAYS: SACRUM AND COCCYX Radiology @ [facility]/MRI: MRI Pelvis w/o contrast Instructions: Sacrum [...] 50% of this time spent in direct [id number] counseling and coordination of care. Results of [...] but may be subject to typographical or oyster opener errors. Verify all diagnoses, medications, dosages, and patient instructions with patient and/or the originator of this document. Health Reminders - Assess BMI satisfied 08/18/2023. - Assess Tobacco Use satisfied 08/18/2023. - Depression Screening satisfied 08/18/2023. - Follow up plan for Depression Screening satisfied 08/18/2023. - Smoking & Tobacco Cessation Intervention and Counseling satisfied 08/18/2023.
--- OUTSIDE RECORDS SUMMARY | 2024-07-25 17:47 | XMS_ITS | CONTINUITY OF CARE DOCUMENT ---
Author Name cande castellon Address Unknown Organization [facility] Address [address] [place] [address] Phone [phone] Care Team Providers Care Historical Archeologist Name Role Phone Javier Eaton MD Unavailable INSURANCE PROVIDERS Payer name Policy type / Coverage type [employer] party ID [employer] insurance [id number]
--- OUTSIDE RECORDS SUMMARY | 2024-07-25 17:48 | XMS_ITS ---
Care Plan - [facility] Created on: July 25, 2024 MILLIE WOOTEN : 1965 Sex: Female Author Organization [facility] Address [address] [place] [address] Phone Care Team Providers Care Crossing Watchman Name Role Phone JULIA MEJIAS PA-C Primary Care Provider [phone]
--- OUTSIDE RECORDS SUMMARY | 2024-07-25 17:49 | XMS_ITS | Clinical Summary ---
Author Organization [facility] Address [address] [place] [address] Phone Care Team Providers Care Tobacco Warehouse Manager Name Role Phone JULIA MEJIAS PA-C Primary Care Provider [phone] Reason for Visit and Chief Complaint The Chief Complaint is: REFERRED BY PILLO DENISE FOR LOW BACK PAIN ~C/O PAIN IN LOW BACK THAT RADIATES DOWN LEFT LEG TO BOTTOM OF FOOT X 2 MONTHS ~IMAGING- MRI [facility] 06/09/23 ~PHYSICAL THERAPY-NONE~PAIN MANAGEMENT-NONE ~SURGERY-NONE ~IS DIABETIC Plan of Treatment Pending Tests Order Diagnosis Results Due Ordering P rovider Pain Management CPT - Epidural Steroid Inj Transforaminal, Lumbar or Sacral 1st level Spinal stenosis, lumbar region with neurogenic claudication 10/25/23 MARTY ESCALONA ANP- Last Documented On 4 2:19PM ; [facility] Instructions to patient Intervention and counseling on cessation of tobacco use : Patient recieved smoking cessation handout Last Documented On 4 11:13AM ; [facility] Assessments Includes: Assessments from this encounter Findings - 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 [M46.08 - Spinal enthesopathy, sacral and sacrococcygeal region] - Last Documented On 08/18/2023 5:05PM ; [facility] - Lumbar spondylosis with radiculopathy [M47.26 - Other spondylosis with radiculopathy, lumbar region] - Last Documented On 08/18/2023 5:05PM ; [facility] - Lumbar stenosis with neurogenic claudication [M48.062 - Spinal stenosis, lumbar region with neurogenic claudication] - Last Documented On 08/18/2023 5:05PM ; [facility] - Myalgia [M79.18 - Myalgia, other site] - Last Documented On 08/18/2023 5:05PM ; [facility] - Chronic pain syndrome [G89.4 - Chronic pain syndrome] - Last Documented On 08/18/2023 5:05PM ; [facility] Instructions Includes: Instructions from this encounter Instructions to patient Intervention and counseling on cessation of tobacco use : Patient recieved smoking cessation handout Last Documented On 4 11:13AM ; [facility] Medical Equipment - Implanted Devices Includes: Current Devices No Medical Equipment Recorded Medications Includes: Medications discussed during this encounter and other current Medications Current Medications (continue as prescribed) Cyclobenzaprine HCl 10 MG Oral Tablet 09/25/2023 Pro vider: Diagnosis: Last Documented On 09/25/2023 1:16PM By Ruth Ann YOON ; [facility] Vitamin D 50 MCG (1999 [place]) Oral Capsule 08/18/2023 P rovider: Diagnosis: Last Documented On 4 11:12AM By Ruth Ann YOON ; [facility] Vitamin C Plus 1000 MG Oral Tablet 08/18/2023 Provid er: Diagnosis: Last Documented On 4 11:11AM By Ruth Ann YOON ; [facility] B Complex Oral Capsule 08/18/2023 Provider: Diagnosis: Last Documented On 4 11:10AM By Ruth Ann YOON ; [facility] Multivitamin Oral Tablet 08/18/2023 Provider: Diagnosis: Last Documented On 4 11:10AM By Ruth Ann YOON ; [facility] Estradiol 1 MG Oral Tablet 08/18/2023 Provider: Diagnosis: TWICE A WEEK Last Documented On 4 11:08AM By Ruth Ann YOON ; [facility] Benadryl Allergy 25 MG Oral Tablet 08/18/2023 Provid er: Diagnosis: Last Documented On 4 11:06AM By Ruth Ann YOON ; [facility] Tylenol Extra Strength 500 MG Oral Tablet 08/18/2023 Provider: Diagnosis: Last Documented On 4 11:07AM By Ruth Ann YOON ; [facility] Ibuprofen 200 MG Oral Tablet 08/18/2023 Provider : Diagnosis: Last Documented On 4 11:07AM By Ruth Ann YOON ; [facility] Adult Aspirin Regimen 81 MG Oral Tablet Delayed Releas e 08/18/2023 Provider: Diagnosis: Last Documented On 4 11:08AM By Ruth Ann YOON ; [facility] Fluticasone Propionate 50 MC G/ACT Nasal Suspension 07/22/2023 Provider: JULIA KAPLAN Diagnosis: Last Documented On 4 11:04AM By Ruth Ann YOON ; [facility] Albuterol Sulfate HFA 108 (9 0 Base) MCG/ACT Inhalation Aerosol Solution 07/22/2023 Provider: JULIA MEJIAS PA-C Diagnosis: Last Documented On 4 11:04AM By Ruth Ann YOON ; [facility] Levothyroxine Sodium 100 MCG Oral Tablet 07/12/2023 Provider: JULIA MEJIAS PA-C Diagnosis: Last Documented On 4 11:04AM By Ruth Ann YOON ; [facility] Lisinopril 40 MG Oral Tablet 04/16/2023 Provider: JULIA MEJIAS PA-C Diagnosis: Last Documented On 4 11:05AM By Ruth Ann YOON ; [facility] Dicyclomine HCl 10 MG Oral Capsule 04/16/2023 Provid er: JULIA MEJIAS PA-C Diagnosis: Last Documented On 4 11:05AM By Ruth Ann YOON ; [facility] Gabapentin 300 MG Oral Capsule 04/15/2023 Provider: JULIA MEJIAS PA-C Diagnosis: Last Documented On 4 11:05AM By Ruth Ann YOON ; [facility] Medications Administered Includes: Administered Medications [...] 99 Last Documented: On 08/18/2023 1:59PM ; [facility] Results Includes: Results discussed during this encounter Drugs of abuse screen [facility] Ordered by MARTY ESCALONA [facility]- on Collected: Reported: 08/18/2023 10:59 Last Documented On 4 10:59AM ; [facility] Reviewed on 08/18/2023; All test results are final unless otherwise noted. Internal QC Acceptable None Last Documented On 4 10:58AM ; [facility] Lot # & Exp. Date [id number], 2025-01-27 N (Normal) Last Documented On 4 10:58AM ; [facility] Amphetamines NEG (NEG) N (Normal) Last Documented On 4 10:58AM ; [facility] Barbiturates NEG (neg) N (Normal) Last Documented On 4 10:58AM ; [facility] Benzodiazepines NEG (neg) N (Normal) Last Documented On 4 10:58AM ; [facility] Cocaine NEG (neg) N (Normal) Last Documented On 4 10:58AM ; [facility] Ecstasy NEG (Neg) N (Normal) Last Documented On 4 10:58AM ; [facility] Methamphetamines NEG (neg) N (Normal) Last Documented On 4 10:58AM ; [facility] Methadone NEG (Neg) N (Normal) Last Documented On 4 10:58AM ; [facility] Morphine NEG (Neg) N (Normal) Last Documented On 4 10:58AM ; [facility] Oxycodone NEG (Neg) N (Normal) Last Documented On 4 10:58AM ; [facility] Phencyclidine NEG (NEG) N (Normal) Last Documented On 4 10:58AM ; [facility] TCA/Tricyclic Antidepressants NEG (neg) N (Normal) Last Documented On 4 10:58AM ; [facility] Cannabis NEG (neg) N (Normal) Last Documented On 4 10:58AM ; [facility] History of Present Illness [...] 08/18/2023 Last Documented On 4 5:05PM ; [facility] Difficulty walking 08/18/2023 Last Documented On 4 5:05PM ; [facility] No consumption of alcohol 08/18/2023 Last Documented On 4 5:05PM ; [facility] Not using drugs 08/18/2023 Last Documented On 4 5:05PM ; [facility] Smoking packs of cigarettes per day 1.5 08/18/2023 Last Documented On 4 5:05PM ; [facility] Smoking Status Unknown Procedures and Surgical History Includes: Procedures from this encounter Procedures Code Diagnosis Performing Provider Service Location Service Date MRI PELVIS W/O CONTRAST 75338 Spinal enthesopathy, sacral and sacrococcygeal region M[facility] ESCALONA [facility] 08/26/2023 Last Documented On 4 1:57PM ; [facility] CLINIC VISIT T1015 Spinal stenosis, lumbar region with neurogenic claudication, Spinal enthesopathy, sacral and sacrococcygeal region, Other spondylosis with radiculopathy, lumbar region, Chronic pain syndrome MARTY ESCALONA [facility] 08/18/2023 Last Documented On 4 12:03PM ; [facility] DRUG TEST PRESEUMPT ANY NUMBER OF CLASSES-CUP DIPSTICK CARD (CLIA WAIVED) 70263 Chronic pain syndrome MARTY ESCALONA [facility] 08/18/2023 Last Documented On 4 12:03PM ; [facility] intervention and counseling on cessation of tobacco use : Patient recieved smoking cessation handout 4000F Last Documented On 4 11:13AM ; [facility] use of tobacco assessment performed 1000F Last Documented On 4 11:13AM ; [facility] review of medications documented 1160F Last Documented On 4 11:13AM ; [facility] assessment of suicide risk performed Last Documented On 4 10:55AM ; [facility] screening for adult depression: impressi on and score five Last Documented On 4 10:55AM ; [facility] standardized depression screening: posit jacob for symptoms Last Documented On 4 10:55AM ; [facility] Clinical summary provided to patient ~ Patient understands and agrees with treatment plan. Questions answered Last Documented On 4 10:53AM ; [facility] SOAPP-R: total score 14 Last Documented On 4 10:53AM ; 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 Currently wearing eyeglasses 08/18/2023 Last Documented On 4 5:05PM ; [facility] Moderate to severe pain 08/18/2023 Last Documented On 4 5:05PM ; [facility] No Pain Pump 08/18/2023 Last Documented On 4 5:05PM ; [facility] No Spinal cord stimulator 08/18/2023 Last Documented On 4 5:05PM ; [facility] Please list all illnesses/co nditions you have been diagnosed with: [place] hernia repaired, dmt2,copd, emphysema, hypothyroid, htn, 08/18/2023 Last Documented On 4 5:05PM ; [facility] Please list all surgeries: P ig skin graft for diaphragmatic, repair of torn diaphragmatic, hysterectomy, appendectomy iraj hip prosthesis, rt knee replacement. rt inguinal hernia repair, appe, abisai, neck surgeryx2 , rt carpule tunnel, 08/18/2023 Last Documented On 4 5:05PM ; [facility] X-rays [facility], [facility] 4 Last Documented On 4 5:05PM ; [facility] Family History Includes: Family History addressed during this encounter Description Last Updated Family history [use for free text] 08/17 Last Documented On 4 5:05PM ; [facility] Family history of Bleeding disorder 09/2023 Last Documented On 4 5:05PM ; [facility] Family history of kidney disease 024 Last Documented On 4 5:05PM ; [facility] Family history of stroke/paralysis 08/17 Last Documented On 4 5:05PM ; [facility] Family history of stroke/paralysis 08/17 Last Documented On 4 5:05PM ; [facility] Family history of stroke/paralysis 08/17 Last Documented On 4 5:05PM ; [facility] Family history of stroke/paralysis 08/17 Last Documented On 4 5:05PM ; [facility] Fraternal history of family history of i schemic heart disease 08/18/2023 Last Documented On 4 5:05PM ; [facility] Fraternal history of stroke/paralysis Last Documented On 4 5:05PM ; [facility] Maternal history of Arthritis 08/18/2023 Last Documented On 4 5:05PM ; [facility] Other family history , please specify: 0 08/18/2023 Last Documented On 4 5:05PM ; [facility] Paternal history of family history of is chemic heart disease 08/18/2023 Last Documented On 4 5:05PM ; [facility] Paternal history of family history of ki dney disease 08/18/2023 Last Documented On 4 5:05PM ; [facility] Paternal history of stroke/paralysis 09/2023 Last Documented On 4 5:05PM ; [facility] Reported family history of seizures 09/2023 Last Documented On 4 5:05PM ; [facility] Reported family history of seizures 09/2023 Last Documented On 4 5:05PM ; [facility] Sororal history of Arthritis 08/18/2023 Last Documented On 4 5:05PM ; [facility] Sororal history of Bleeding disorder 09/2023 Last Documented On 4 5:05PM ; [facility] Review of Systems Includes: Review of Systems [...] Active Last Documented On 4 1:16PM ; [facility] traMADol HCl Allergy 08/18/2023 Active Last Documented On 4 1:16PM ; [facility] Sulfamethoxazole-Trimethoprim Allergy 08/18/2023 Active Last Documented On 4 1:16PM ; [facility] SHRIMP Allergy 08/18/2023 Active Last Documented On 4 1:16PM ; [facility] Penicillins Allergy 08/18/2023 Active Last Documented On 4 1:16PM ; [facility] NICKEL Allergy 08/18/2023 Active Last Documented On 4 1:16PM ; [facility] Lovenox Allergy 08/18/2023 Active Last Documented On 4 1:16PM ; [facility] Iodinated contrast media Allergy 08/18/2023 Active Last Documented On 4 1:16PM ; [facility] Amoxicillin Allergy 08/18/2023 Active Last Documented On 4 1:16PM ; [facility] Encounters Encounter Provider Location Date Check-In Time Check-Out Time Diagnosis PAIN MANAGEMENT NEW CONSULT MARTY LEONARD[facility] 024 10:49AM 11:46AM Chronic Pain Syndrome,Spinal Stenosis Lumbar with Neurogenic Claudication,Spon dylosis with Radiculopathy Lumbar Region,Myalgia , Other Site (M79.18),Spinal Enthesopathy of Sacral and Sacrococcygeal Region Insurance Includes: Active Insurance Policies Plan Name Member ID Group # Subscriber Relationship Effect jacob Dates - [facility] [id number] MILLIE WOOTEN Self Clinical Notes Includes: Clinical Notes from this encounter * Progress note Date Encounter Last Documented by 08/18/2023 PAIN MANAGEMENT NEW CONSULT Last documented on 08/18/2023; 5:05 PM, MARTY HIGUERA; [facility] Chief Complaint The Chief Complaint is: REFERRED BY PILLO DENISE FOR LOW BACK PAIN C/O PAIN IN LOW BACK THAT RADIATES DOWN LEFT LEG TO BOTTOM OF FOOT X 2 MONTHS IMAGING-MRI [facility] 06/09/23 PHYSICAL THERAPY-NONE PAIN MANAGEMENT-NONE SURGERY-NONE IS [...] Score: 30=60% Date:08/18/23 Past Medical/Surgical History Reported: 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 Tests: X-rays [facility], [facility] and CT/MRI [facility]. Current Medication - Adult Aspirin Regimen [...] QC Acceptable Lot # & Exp. Date [id number], 2025-01-27 Normal Amphetamines NEG Normal Barbiturates NEG [...] X-ray/OUTSIDE XRAYS: SACRUM AND COCCYX Radiology @ [facility]/MRI: MRI Pelvis w/o contrast Instructions: Sacrum [...] 50% of this time spent in direct [id number] counseling and coordination of care. Results of [...] but may be subject to typographical or horologist apprentice errors. Verify all diagnoses, medications, dosages, and patient instructions with patient and/or the originator of this document. Health Reminders - Assess BMI satisfied 08/18/2023. - Assess Tobacco Use satisfied 08/18/2023. - Depression Screening satisfied 08/18/2023. - Follow up plan for Depression Screening satisfied 08/18/2023. - Smoking & Tobacco Cessation Intervention and Counseling satisfied 08/18/2023.
--- OUTSIDE RECORDS SUMMARY | 2024-07-25 17:49 | XMS_ITS | Clinical Summary ---
Author Organization [facility] Address [address] [place] [address] Phone Care Team Providers Care Raiser Helper Name Role Phone JULIA MEJIAS PA-C Primary Care Provider [phone] Reason for Visit and Chief Complaint The Chief Complaint is: FU IMAGING AND EMG RESULTS Plan of Treatment Pending Tests Order Diagnosis Results Due Ordering P rovider Pain Management CPT - Epidural Steroid Inj Transforaminal, Lumbar or Sacral 1st level Spinal stenosis, lumbar region with neurogenic claudication 10/25/23 MARTY ESCALONA ANP-BC Last Documented On 4 2:19PM ; [facility] Instructions to patient Intervention and counseling on cessation of tobacco use : Patient recieved smoking cessation handout Last Documented On 4 1:16PM ; [facility] Assessments Includes: Assessments from this encounter Findings - 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 - Lumbar stenosis with neurogenic claudication [M48.062 - Spinal stenosis, lumbar region with neurogenic claudication] - Last Documented On 09/25/2023 1:47PM ; [facility] - Myalgia [M79.18 - Myalgia, other site] - Last Documented On 09/25/2023 1:47PM ; [facility] - Chronic pain syndrome [G89.4 - Chronic pain syndrome] - Last Documented On 09/25/2023 1:47PM ; [facility] Instructions Includes: Instructions from this encounter Instructions to patient Intervention and counseling on cessation of tobacco use : Patient recieved smoking cessation handout Last Documented On 4 1:16PM ; [facility] Medical Equipment - Implanted Devices Includes: Current Devices No Medical Equipment Recorded Medications Includes: Medications discussed during this encounter and other current Medications Current Medications (continue as prescribed) Cyclobenzaprine HCl 10 MG Oral Tablet 09/25/2023 Pro vider: Diagnosis: Last Documented On 09/25/2023 1:16PM By Ruth Ann YOON ; [facility] Vitamin D 50 MCG (1999) Oral Capsule 08/18/2023 P rofredrickder: Diagnosis: Last Documented On 4 11:12AM By Ruth Ann YOON ; [facility] Vitamin C Plus 1000 MG Oral Tablet 08/18/2023 Provid er: Diagnosis: Last Documented On 4 11:11AM By Ruth Ann YOON ; [facility] B Complex Oral Capsule 08/18/2023 Provider: Diagnosis: Last Documented On 4 11:10AM By Ruth Ann YONO ; [facility] Multivitamin Oral Tablet 08/18/2023 Provider: Diagnosis: Last Documented On 4 11:10AM By Ruth Ann YOON ; [facility] Estradiol 1 MG Oral Tablet 08/18/2023 Provider: Diagnosis: TWICE A WEEK Last Documented On 4 11:08AM By Ruth Ann YOON ; [facility] Benadryl Allergy 25 MG Oral Tablet 08/18/2023 Provid er: Diagnosis: Last Documented On 4 11:06AM By Ruth Ann YOON ; [facility] Tylenol Extra Strength 500 MG Oral Tablet 08/18/2023 Provider: Diagnosis: Last Documented On 4 11:07AM By Ruth Ann YOON ; [facility] Ibuprofen 200 MG Oral Tablet 08/18/2023 Provider : Diagnosis: Last Documented On 4 11:07AM By Ruth Ann YOON ; [facility] Adult Aspirin Regimen 81 MG Oral Tablet Delayed Releas e 08/18/2023 Provider: Diagnosis: Last Documented On 4 11:08AM By Ruth Ann YOON ; [facility] Fluticasone Propionate 50 MC G/ACT Nasal Suspension 07/22/2023 Provider: JULIA KAPLAN Diagnosis: Last Documented On 4 11:04AM By Ruth Ann YOON ; [facility] Albuterol Sulfate HFA 108 (9 0 Base) MCG/ACT Inhalation Aerosol Solution 07/22/2023 Provider: JULIA MEJIAS PA-C Diagnosis: Last Documented On 4 11:04AM By Ruth Ann YOON ; [facility] Levothyroxine Sodium 100 MCG Oral Tablet 07/12/2023 Provider: JULIA MEJIAS PA-C Diagnosis: Last Documented On 4 11:04AM By Ruth Ann YOON ; [facility] Lisinopril 40 MG Oral Tablet 04/16/2023 Provider: JULIA MEJIAS PA-C Diagnosis: Last Documented On 4 11:05AM By Ruth Ann YOON ; [facility] Dicyclomine HCl 10 MG Oral Capsule 04/16/2023 Provid er: JULIA MEJIAS PA-C Diagnosis: Last Documented On 4 11:05AM By Ruth Ann YOON ; [facility] Gabapentin 300 MG Oral Capsule 04/15/2023 Provider: JULIA MEJIAS PA-C Diagnosis: Last Documented On 4 11:05AM By Ruth Ann YOON ; [facility] Medications Administered Includes: Administered Medications from [...] 98 Last Documented: On 09/25/2023 1:47PM ; [facility] Results Includes: Results discussed during this encounter [...] 09/25/2023 Last Documented On 4 1:47PM ; [facility] No consumption of alcohol 09/25/2023 Last Documented On 4 1:47PM ; [facility] Not using drugs 09/25/2023 Last Documented On 4 1:47PM ; [facility] Difficulty walking 08/18/2023 Last Documented On 4 1:07PM ; [facility] Smoking packs of cigarettes per day 1.5 08/18/2023 Last Documented On 4 1:07PM ; [facility] Smoking Status Unknown Procedures and Surgical History Includes: Procedures from this encounter Procedures Code Diagnosis Performing Provider Service Location Service Date CLINIC VISIT [id number] Spinal stenosis, lumbar region with neurogenic claudication, Spinal enthesopathy, sacral and sacrococcygeal region, Other spondylosis with radiculopathy, lumbar region, Chronic pain syndrome MARTY ESCALONA ANP-BC [facility] 09/25/2023 Last Documented On 4 2:55PM ; [facility] intervention and counseling on cessation of tobacco use : Patient recieved smoking cessation handout 4000F Last Documented On 4 1:16PM ; [facility] use of tobacco assessment performed 1000F Last Documented On 4 1:16PM ; [facility] review of medications documented 1160F Last Documented On 4 1:16PM ; [facility] assessment of suicide risk performed Last Documented On 4 1:07PM ; [facility] screening for adult depression: impressi on and score five Last Documented On 4 1:07PM ; [facility] standardized depression screening: posit jacob for symptoms Last Documented On 4 1:07PM ; [facility] Clinical summary provided to patient ~ Patient understands and agrees with treatment plan. Questions answered Last Documented On 4 1:07PM ; [facility] SOAPP-R: total score 14 Last Documented On 4 1:07PM ; [facility] Surgical History Last Updated No Pacemaker 09/25/2023 Last Documented On 4 1:47PM ; [facility] Medical History Includes: Medical History addressed during this encounter Description Last Updated No Pain Pump 09/25/2023 Last Documented On 4 1:47PM ; [facility] No Spinal cord stimulator 09/25/2023 Last Documented On 4 1:47PM ; 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 Currently wearing eyeglasses 08/18/2023 Last Documented On 4 1:07PM ; [facility] Moderate to severe pain 08/18/2023 Last Documented On 4 1:07PM ; [facility] Please list all illnesses/co nditions you have been diagnosed with: [place] hernia repaired, dmt2,copd, emphysema, hypothyroid, htn, 08/18/2023 Last Documented On 4 1:07PM ; [facility] Please list all surgeries: P ig skin graft for diaphragmatic, repair of torn diaphragmatic, hysterectomy, appendectomy riaj hip prosthesis, rt knee replacement. rt inguinal hernia repair, appe, abisai, neck surgeryx2 , rt carpule tunnel, 08/18/2023 Last Documented On 4 1:07PM ; [facility] X-rays [facility], [facility] 4 Last Documented On 4 1:07PM ; [facility] Family History Includes: Family History addressed during this encounter Description Last Updated Family history [use for free text] 09/24 Last Documented On 4 1:47PM ; [facility] Family history of Bleeding disorder 09/12 Last Documented On 4 1:47PM ; [facility] Family history of kidney disease 024 Last Documented On 4 1:47PM ; [facility] Family history of stroke/paralysis 09/24 Last Documented On 4 1:47PM ; [facility] Fraternal history of family history of i schemic heart disease 09/25/2023 Last Documented On 4 1:47PM ; [facility] Fraternal history of stroke/paralysis Last Documented On 4 1:47PM ; [facility] Maternal history of Arthritis 09/25/2023 Last Documented On 4 1:47PM ; [facility] Other family history , please specify: 0 09/25/2023 Last Documented On 4 1:47PM ; [facility] Paternal history of family history of is chemic heart disease 09/25/2023 Last Documented On 4 1:47PM ; [facility] Paternal history of family history of ki dney disease 09/25/2023 Last Documented On 4 1:47PM ; [facility] Paternal history of stroke/paralysis Last Documented On 4 1:47PM ; [facility] Reported family history of seizures 09/12 Last Documented On 4 1:47PM ; [facility] Sororal history of Arthritis 09/25/2023 Last Documented On 4 1:47PM ; [facility] Sororal history of Bleeding disorder Last Documented On 4 1:47PM ; [facility] Review of Systems Includes: Review [...] Documented On 4 1:16PM ; [facility] traMADol HCl Allergy 08/18/2023 Active Last Documented On 4 1:16PM ; [facility] Sulfamethoxazole-Trimethoprim Allergy 08/18/2023 Active Last Documented On 4 1:16PM ; [facility] SHRIMP Allergy 08/18/2023 Active Last Documented On 4 1:16PM ; [facility] Penicillins Allergy 08/18/2023 Active Last Documented On 4 1:16PM ; [facility] NICKEL Allergy 08/18/2023 Active Last Documented On 4 1:16PM ; [facility] Lovenox Allergy 08/18/2023 Active Last Documented On 4 1:16PM ; [facility] Iodinated contrast media Allergy 08/18/2023 Active Last Documented On 4 1:16PM ; [facility] Amoxicillin Allergy 08/18/2023 Active Last Documented On 4 1:16PM ; [facility] Encounters Encounter Provider Location Date Check-In Time Check-Out Time Diagnosis PAIN MANAGEMENT FO[facility] 1:09PM 1:41PM Chronic Pain Syndrome,Spinal Stenosis Lumbar with Neurogenic Claudication,Spin al Enthesopathy of Sacral and Sacrococcygeal Region,Spondylosi s with Radiculopathy Lumbar Region,Myalgia , Other Site (M79.18) Insurance Includes: Active Insurance Policies Plan Name Member ID Group # Subscriber Relationship Effect jacob Dates 1 - AETNA [facility] [employer] [id number] MILLIE Onofre JE Self Clinical Notes Includes: Clinical Notes from this encounter * Progress note Date Encounter Last Documented by 09/25/2023 PAIN MANAGEMENT FOLLOW UP Last d ocumented on 09/25/2023; 1:47 PM, MARTY BIRD; [facility] Chief Complaint The Chief Complaint is: [...] Score: 30=60% Date:08/18/23 Past Medical/Surgical History 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 Tests: X-rays [facility], [facility] and CT/MRI [facility]. Current Medication - Adult Aspirin Regimen [...] 50% of this time spent in direct [id number] counseling and coordination of care. Results of [...] but may be subject to typographical or fire truck driver errors. Verify all diagnoses, medications, dosages, and patient instructions with patient and/or the originator of this document. Health Reminders - Assess BMI satisfied 09/25/2023. - Assess Tobacco Use satisfied 09/25/2023. - Depression Screening satisfied 09/25/2023. - Follow up plan for Depression Screening satisfied 09/25/2023. - Smoking & Tobacco Cessation Intervention and Counseling satisfied 09/25/2023.
--- OUTSIDE RECORDS SUMMARY | 2024-07-25 17:49 | XMS_ITS | Clinical Summary ---
Author Organization [facility] Address [address] [place] [address] Phone Care Team Providers Care Printed Circuit Boards Laminator Name Role Phone JULIA MEJIAS PA-C Primary [...] 09/25/2023 1:16PM By Ruth Ann YOON ; [facility] Vitamin D 50 MCG (1999) Oral Capsule 08/18/2023 P rovider: Diagnosis: Last Documented On 4 11:12AM By Ruth Ann YOON ; [facility] Vitamin C Plus 1000 MG Oral Tablet 08/18/2023 Provid er: Diagnosis: Last Documented On 4 11:11AM By Ruth Ann YOON ; [facility] B Complex Oral Capsule 08/18/2023 Provider: Diagnosis: Last Documented On 4 11:10AM By Ruth Ann YOON ; [facility] Multivitamin Oral Tablet 08/18/2023 Provider: Diagnosis: Last Documented On 4 11:10AM By Ruth Ann YOON ; [facility] Estradiol 1 MG Oral Tablet 08/18/2023 Provider: Diagnosis: TWICE A WEEK Last Documented On 4 11:08AM By Ruth Ann YOON ; [facility] Benadryl Allergy 25 MG Oral Tablet 08/18/2023 Provid er: Diagnosis: Last Documented On 4 11:06AM By Ruth Ann YOON ; [facility] Tylenol Extra Strength 500 MG Oral Tablet 08/18/2023 Provider: Diagnosis: Last Documented On 4 11:07AM By Ruth Ann YOON ; [facility] Ibuprofen 200 MG Oral Tablet 08/18/2023 Provider : Diagnosis: Last Documented On 4 11:07AM By Ruth Ann YOON ; [facility] Adult Aspirin Regimen 81 MG Oral Tablet Delayed Releas e 08/18/2023 Provider: Diagnosis: Last Documented On 4 11:08AM By Ruth Ann YOON ; [facility] Fluticasone Propionate 50 MC G/ACT Nasal Suspension 07/22/2023 Provider: JULIA KAPLAN Diagnosis: Last Documented On 4 11:04AM By Ruth Ann YOON ; [facility] Albuterol Sulfate HFA 108 (9 0 Base) MCG/ACT Inhalation Aerosol Solution 07/22/2023 Provider: JULIA MEJIAS PA-C Diagnosis: Last Documented On 4 11:04AM By Ruth Ann YOON ; [facility] Levothyroxine Sodium 100 MCG Oral Tablet 07/12/2023 Provider: JULIA MEJIAS PA-C Diagnosis: Last Documented On 4 11:04AM By Ruth Ann YOON ; [facility] Lisinopril 40 MG Oral Tablet 04/16/2023 Provider: JULIA MEJIAS PA-C Diagnosis: Last Documented On 4 11:05AM By Ruth Ann YOON ; [facility] Dicyclomine HCl 10 MG Oral Capsule 04/16/2023 Provid er: JULIA MEJIAS PA-C Diagnosis: Last Documented On 4 11:05AM By Ruth Ann YOON ; [facility] Gabapentin 300 MG Oral Capsule 04/15/2023 Provider: JULIA MEJIAS PA-C Diagnosis: Last Documented On 4 11:05AM By Ruth Ann YOON ; [facility] Medications Administered Includes: Administered Medications from this [...] Active Last Documented On 4 1:16PM ; [facility] traMADol HCl Allergy 08/18/2023 Active Last Documented On 4 1:16PM ; [facility] Sulfamethoxazole-Trimethoprim Allergy 08/18/2023 Active Last Documented On 4 1:16PM ; [facility] SHRIMP Allergy 08/18/2023 Active Last Documented On 4 1:16PM ; [facility] Penicillins Allergy 08/18/2023 Active Last Documented On 4 1:16PM ; [facility] NICKEL Allergy 08/18/2023 Active Last Documented On 4 1:16PM ; [facility] Lovenox Allergy 08/18/2023 Active Last Documented On 4 1:16PM ; [facility] Iodinated contrast media Allergy 08/18/2023 Active Last Documented On 4 1:16PM ; [facility] Amoxicillin Allergy 08/18/2023 Active Last Documented On 4 1:16PM ; [facility] Insurance Includes: Active Insurance Policies Plan Name Member ID Group # Subscriber Relationship Effect jacob Dates 1 - AETNA [facility] [id number] MILLIE Metz Clinical Notes Includes: Clinical Notes from this encounter No Clinical Notes Recorded
--- OUTSIDE RECORDS SUMMARY | 2024-07-25 17:49 | XMS_ITS | Clinical Summary ---
Author Organization [facility] Address [address] [place] [address] Phone Care Team Providers Care Outside Sales Account Representative Name Role Phone JULIA MEJIAS PA-C Primary Care Provider [phone] Reason for Visit and Chief Complaint LEXISCAN [...] 09/25/2023 1:16PM By Ruth Ann YOON ; [facility] Vitamin D 50 MCG (1999) Oral Capsule 08/18/2023 P rovider: Diagnosis: Last Documented On 4 11:12AM By Ruth Ann YOON ; [facility] Vitamin C Plus 1000 MG Oral Tablet 08/18/2023 Provid er: Diagnosis: Last Documented On 4 11:11AM By Ruth Ann YOON ; [facility] B Complex Oral Capsule 08/18/2023 Provider: Diagnosis: Last Documented On 4 11:10AM By Ruth Ann YOON ; [facility] Multivitamin Oral Tablet 08/18/2023 Provider: Diagnosis: Last Documented On 4 11:10AM By Ruth Ann YOON ; [facility] Estradiol 1 MG Oral Tablet 08/18/2023 Provider: Diagnosis: TWICE A WEEK Last Documented On 4 11:08AM By Ruth Ann YOON ; [facility] Benadryl Allergy 25 MG Oral Tablet 08/18/2023 Provid er: Diagnosis: Last Documented On 4 11:06AM By Ruth Ann YOON ; [facility] Tylenol Extra Strength 500 MG Oral Tablet 08/18/2023 Provider: Diagnosis: Last Documented On 4 11:07AM By Ruth Ann YOON ; [facility] Ibuprofen 200 MG Oral Tablet 08/18/2023 Provider : Diagnosis: Last Documented On 4 11:07AM By Ruth Ann YOON ; [facility] Adult Aspirin Regimen 81 MG Oral Tablet Delayed Releas e 08/18/2023 Provider: Diagnosis: Last Documented On 4 11:08AM By Ruth Ann YOON ; [facility] Fluticasone Propionate 50 MC G/ACT Nasal Suspension 07/22/2023 Provider: JULIA KAPLAN Diagnosis: Last Documented On 4 11:04AM By Ruth Ann YOON ; [facility] Albuterol Sulfate HFA 108 (9 0 Base) MCG/ACT Inhalation Aerosol Solution 07/22/2023 Provider: JULIA MEJIAS PA-C Diagnosis: Last Documented On 4 11:04AM By Ruth Ann YOON ; [facility] Levothyroxine Sodium 100 MCG Oral Tablet 07/12/2023 Provider: JULIA MEJIAS PA-C Diagnosis: Last Documented On 4 11:04AM By Ruth Ann YOON ; [facility] Lisinopril 40 MG Oral Tablet 04/16/2023 Provider: JULIA MEJIAS PA-C Diagnosis: Last Documented On 4 11:05AM By Ruth Ann YOON ; [facility] Dicyclomine HCl 10 MG Oral Capsule 04/16/2023 Provid er: JULIA MEJIAS PA-C Diagnosis: Last Documented On 4 11:05AM By Ruth Ann YOON ; [facility] Gabapentin 300 MG Oral Capsule 04/15/2023 Provider: JULIA MEJIAS PA-C Diagnosis: Last Documented On 4 11:05AM By Ruth Ann YOON ; [facility] Medications Administered Includes: Administered [...] Active Last Documented On 4 1:16PM ; [facility] traMADol HCl Allergy 08/18/2023 Active Last Documented On 4 1:16PM ; [facility] Sulfamethoxazole-Trimethoprim Allergy 08/18/2023 Active Last Documented On 4 1:16PM ; [facility] SHRIMP Allergy 08/18/2023 Active Last Documented On 4 1:16PM ; [facility] Penicillins Allergy 08/18/2023 Active Last Documented On 4 1:16PM ; [facility] NICKEL Allergy 08/18/2023 Active Last Documented On 4 1:16PM ; [facility] Lovenox Allergy 08/18/2023 Active Last Documented On 4 1:16PM ; [facility] Iodinated contrast media Allergy 08/18/2023 Active Last Documented On 4 1:16PM ; [facility] Amoxicillin Allergy 08/18/2023 Active Last Documented On 4 1:16PM ; [facility] Encounters Encounter Provider Location Date Check-In Time Check-Out Time Diagnosis LEXISCAN CARDIOLITE JASMIN HERRERA MD [facility] 03/04/20 17 9:29AM 12:15PM Insurance Includes: Active Insurance Policies Plan Name Member ID Group # Subscriber Relationship Effect jacob Dates 1 - AETNA [facility] [id number] MILLIE WOOTEN Self Clinical Notes Includes: Clinical Notes from this encounter No Clinical Notes Recorded
--- OUTSIDE RECORDS SUMMARY | 2024-07-25 17:49 | XMS_ITS | CONTINUITY OF CARE DOCUMENT ---
Author Name cande castellon Address Unknown Organization [facility] Address [address] [place] [address] Phone [phone] Care Team Providers Care Pizza Baker Name Role Phone Javier Eaton MD Unavailable INSURANCE PROVIDERS Payer name Policy type / Coverage type Oscar red green party ID [employer] insurance [employer] [id number]
--- OUTSIDE RECORDS SUMMARY | 2024-07-25 17:49 | XMS_ITS | Continuity of Care Document ---
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 Role Phone Jerry Diamond PTA Unavailable Unavailable Procedures Procedure Date Therapeutic Activities Therapeutic Exercise Neuromuscular Re-Ed Manual Therapy Therapeutic Activities Progress Note Therapeutic Exercise Manual Therapy Neuromuscular Re-Ed Therapeutic Exercise Neuromuscular Re-Ed Manual Therapy Therapeutic Activities Therapeutic Activities Manual Therapy Therapeutic Exercise Neuromuscular Re-Ed Neuromuscular Re-Ed Therapeutic Exercise Therapeutic Activities Manual Therapy Therapeutic Activities Neuromuscular Re-Ed Manual Therapy Therapeutic Exercise Therapeutic Exercise Neuromuscular Re-Ed Therapeutic Activities Manual Therapy Therapeutic Exercise Manual Therapy Therapeutic Activities Neuromuscular Re-Ed Neuromuscular Re-Ed Therapeutic Activities Therapeutic Exercise Manual Therapy Hot or Cold Pack Therapeutic Activities Neuromuscular Re-Ed Therapeutic Exercise Manual Therapy Hot or Cold Pack Neuromuscular Re-Ed Therapeutic Activities Therapeutic Exercise Manual Therapy Hot or Cold Pack Therapeutic Exercise Therapeutic Activities Neuromuscular Re-Ed Hot or Cold Pack Manual Therapy Neuromuscular Re-Ed Hot or Cold Pack Manual Therapy Therapeutic Activities Therapeutic Exercise Therapeutic Activities Manual Therapy Neuromuscular Re-Ed Therapeutic Exercise Neuromuscular Re-Ed Hot or Cold Pack Manual Therapy Therapeutic Activities Therapeutic Exercise Therapeutic Exercise Manual Therapy Hot or Cold Pack Neuromuscular Re-Ed PT Evaluation Moderate Complexity Therapeutic Exercise Neuromuscular Re-Ed Advance Directives Directive Yes / No Effective Date File Name No Information Encounters Encounter Description Practice Location Reason(s) For Visit Diagnoses Date Provider Providers Copied on Encounter [facility], [id number], tel:[phone] [place] No Information Dara Edwards. [address] [facility], [address], [place], [address], [place]. tel:[phone] Referring Provider: Kye Oro [address] [place] [address] [address], [place], [address]. tel:[phone] [facility] [facility], [place], [place], [id number], tel:[phone] [place] No Information Gandara Zak. . Referring Provider: Kye Oro [address] [facility] [address], [place], [address]. tel:[phone] [place] [address] [facility] [address], [place], [place], [address], [place] tel:[phone] [place] No Information Dara Edwards. [address] [facility], [address], [place], [address], [place]. tel:[phone] Referring Provider: Kye Oro, [address] [place] [address] [address], [place], [address]. tel:[phone] [place] [address] [facility] [address], [place], [place], [address], [place] tel:[phone] [place] No Information Dara Edwards. [address] [facility], [address], [place], [address], [place]. tel:[phone] Referring Provider: Kye Oro, [address] [place] [address] [address], [place], [address]. tel:[phone] [place] [address] [facility] [address], [place], [place], [address], [place] tel:[phone] [place] No Information Dara Edwards. [address] [facility], [address], [place], [address], [place]. tel:[phone] Referring Provider: Kye Oro, [address] [place] [address] [address], [place], [address]. tel:[phone] [place] [address] [address], [place], [place], [address], [place] tel:[phone] [place] No Information Dara Edwards. [address] [facility], [address], [place], [address], [place]. tel:[phone] Referring Provider: Kye Oro, [address] [place] [address] [address], [place], [address]. tel:[phone] [place] [id number] [address], [place], [place], [address], [place] tel:[phone] [place] No Information Dara Edwards. [address] [facility], [address], [place], [place], [facility], [place]. tel:[phone] Referring Provider: Kye Oro, [address] [place] [address] [address], [place], [address]. tel:[phone] [place] [address] [address], [place], [place], [address], [place] tel:[phone] [place] No Information Dara Edwards. [address] [facility], [address], [place], [place], [facility], [place]. tel:[phone] Referring Provider: Kye Oro, [address] [place] [address] [address], [place], [address]. tel:[phone] [place] [address] [place], [place] [address], [place], [place], [id number], tel:[phone] [place] No Information Dara Edwards. [address] [facility], [address], [place], [address], [place]. tel:[phone] Referring Provider: Kye Oro, [address] [place] [address] [address], [place], [address]. tel:[phone] [place] [address] [address], [place], [place], [address], [place] tel:[phone] [place] No Information Dara Edwards. [address] [facility], [address], [place], [address], [place]. tel:[phone] Referring Provider: Kye Oro, [address] [place] [address] [address], [place], [address]. tel:[phone] [place] [address], [facility] [address], [place], [place], [id number], tel:[phone] [place] No Information Dara Edwards. [address] [place] [address], [address], [place], [address], [place]. tel:[phone] Referring Provider: Kye Oro, [address] [place] [address] [address], [place], [address]. tel:[phone] [place] [address] [address], [place], [place], [address], [place] tel:[phone] [place] No Information Dara Edwards. [address] [facility], [address], [place], [address], [place]. tel:[phone] Referring Provider: Kye Oro, [address] [place] [address] [address], [place], [address]. tel:[phone] [place], [place] [address], [place], [place], [id number], tel:[phone] [place] No Information Dara Edwards. [address] [place] [address], [address], [place], [address], [place]. tel:[phone] Referring Provider: Kye Oro, [address] [place] [address] [address], [place], [address]. tel:[phone] [place] [address] [address], [place], [place], [address], [place] tel:[phone] [place] No Information Dara Edwards. [address] [facility], [address], [place], [address], [place]. tel:[phone] Referring Provider: Kye Oro, [address] [place] [address] [address], [place], [address]. tel:[phone], [place], [place], [address], [place] tel:[phone] [place] No Information Dara Edwards. [address] [facility], [address], [place], [address], [place]. tel:[phone] Referring Provider: Kye Oro, [address] [place] [address] [address], [place], [address]. tel:[phone] [facility] [address] [place], [place] [address], [place], [place], [address], [place] tel:[phone] [place] No Information Dara Edwards. [address] [facility], [address], [place], [address], [place]. tel:[phone] Referring Provider: Kye Oro, [address] [place] [address] [address], [place], [address]. tel:[phone] [facility] [address] [place], [place] [address], [place], [place], [id number], tel:[phone] [place] No Information Javier [place] . Referring Provider: Kye Oro, [address] [place] [address] [address], [place], [address]. tel:[phone] Family History Family Member Type Diagnosis Age At Onset No Information Payers Payer name Insurance type Covered alliance party ID Kyra ryan(michel Quezada [facility] CI [id number] Social History Type Description Quantity Date Captured [...]
--- OUTSIDE RECORDS SUMMARY | 2024-07-25 17:49 | XMS_ITS | Clinical Summary ---
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 Vitamin C Plus 1000 MG Oral Tablet 08/18/2023 Provid er: Diagnosis: Last Documented On 4 11:11AM By Ruth Ann YOON ; [facility] B Complex Oral Capsule 08/18/2023 Provider: Diagnosis: Last Documented On 4 11:10AM By Ruth Ann YOON ; [facility] Multivitamin Oral Tablet 08/18/2023 Provider: Diagnosis: Last Documented On 4 11:10AM By Ruth Ann YOON ; [facility] Estradiol 1 MG Oral Tablet 08/18/2023 Provider: Diagnosis: TWICE A WEEK Last Documented On 4 11:08AM By Ruth Ann YOON ; [facility] Benadryl Allergy 25 MG Oral Tablet 08/18/2023 Provid er: Diagnosis: Last Documented On 4 11:06AM By Ruth Ann YOON ; [facility] Tylenol Extra Strength 500 MG Oral Tablet 08/18/2023 Provider: Diagnosis: Last Documented On 4 11:07AM By Ruth Ann YOON ; [facility] Ibuprofen 200 MG Oral Tablet 08/18/2023 Provider : Diagnosis: Last Documented On 4 11:07AM By Ruth Ann YOON ; [facility] Adult Aspirin Regimen 81 MG Oral Tablet Delayed Releas e 08/18/2023 Provider: Diagnosis: Last Documented On 4 11:08AM By Ruth Ann YOON ; [facility] Fluticasone Propionate 50 MC G/ACT Nasal Suspension 07/22/2023 Provider: JULIA KAPLAN Diagnosis: Last Documented On 4 11:04AM By Ruth Ann YOON ; [facility] Albuterol Sulfate HFA 108 (9 0 Base) MCG/ACT Inhalation Aerosol Solution 07/22/2023 Provider: JULIA MEJIAS PA-C Diagnosis: Last Documented On 4 11:04AM By Ruth Ann YOON ; [facility] Levothyroxine Sodium 100 MCG Oral Tablet 07/12/2023 Provider: JULIA MEJIAS PA-C Diagnosis: Last Documented On 4 11:04AM By Ruth Ann YOON ; [facility] Lisinopril 40 MG Oral Tablet 04/16/2023 Provider: JULIA MEJIAS PA-C Diagnosis: Last Documented On 4 11:05AM By Ruth Ann YOON ; [facility] Dicyclomine HCl 10 MG Oral Capsule 04/16/2023 Provid er: JULIA MEJIAS PA-C Diagnosis: Last Documented On 4 11:05AM By Ruth Ann YOON ; [facility] Gabapentin 300 MG Oral Capsule 04/15/2023 Provider: JULIA MEJIAS PA-C Diagnosis: Last Documented On 4 11:05AM By Ruth Ann YOON ; [facility] Medications Administered Includes: Administered Medications from this [...] Active Last Documented On 4 1:16PM ; [facility] traMADol HCl Allergy 08/18/2023 Active Last Documented On 4 1:16PM ; [facility] Sulfamethoxazole-Trimethoprim Allergy 08/18/2023 Active Last Documented On 4 1:16PM ; [facility] SHRIMP Allergy 08/18/2023 Active Last Documented On 4 1:16PM ; [facility] Penicillins Allergy 08/18/2023 Active Last Documented On 4 1:16PM ; [facility] NICKEL Allergy 08/18/2023 Active Last Documented On 4 1:16PM ; [facility] Lovenox Allergy 08/18/2023 Active Last Documented On 4 1:16PM ; [facility] Iodinated contrast media Allergy 08/18/2023 Active Last Documented On 4 1:16PM ; [facility] Amoxicillin Allergy 08/18/2023 Active Last Documented On 4 1:16PM ; [facility] Encounters Encounter Provider Location Date Check-In Time Check-Out Time Diagnosis CHECK UP CANDIDO LEONARD [facility]- 06/10/2017 2:41PM 3:21PM Insurance Includes: Active Insurance Policies Plan Name Member ID Group # Subscriber Relationship Effect jacob Dates 1 - [employer] [facility] [id number] MILLIE WOOTEN Self Clinical Notes Includes: Clinical Notes from this encounter No Clinical Notes Recorded
--- OUTSIDE RECORDS SUMMARY | 2024-07-25 17:49 | XMS_ITS ---
Author Organization [facility] Address [address] [place] [address] Phone Care Team Providers Care Health And Nutrition Specialist Name Role Phone JULIA MEJIAS PA-C Primary Care Provider [phone] Plan of Treatment Pending Tests Order Diagnosis Results Due Ordering P rovider Pain Management CPT - Epidural Steroid Inj Transforaminal, Lumbar or Sacral 1st level Spinal stenosis, lumbar region with neurogenic claudication 10/25/23 MARTY ESCALONA ANP-BC Last Documented On 4 2:19PM ; [facility] Instructions to patient Intervention and counseling on cessation of tobacco use : Patient recieved smoking cessation handout Last Documented On 4 1:16PM ; [facility] Intervention and counseling on cessation of tobacco use : Patient recieved smoking cessation handout Last Documented On 4 11:13AM ; [facility] Assessments Includes: Assessments for all patient encounters Findings Encounter Date Chronic pain syndrome PAIN MANAGEMENT FO LLOW UP with MARTY ESCALONA ANP-BC 09/25/2023 Last Documented On 4 1:47PM ; [facility] Lumbar spondylosis with radiculopathy PA IN MANAGEMENT FOLLOW UP with MARTY Ella QUINTANILLAS ANP-BC 09/25/2023 Last Documented On 4 1:47PM ; [facility] Lumbar stenosis with neuroge terence claudication PAIN MANAGEMENT FOLLOW UP with MARTY QUINTANILLAS ANP-BC 09/25/2023 Last Documented On 4 1:47PM ; [facility] Myalgia PAIN MANAGEMENT FOLLOW UP with Logan QUINTANILLAS ANP-BC 09/25/2023 Last Documented On 4 1:47PM ; [facility] Spinal enthesopathy of sacra l and sacrococcygeal region PAIN MANAGEMENT FOLLOW UP with MARTY ESCALONA [facility] 09/25/2023 Last Documented On 4 1:47PM ; [facility] Chronic pain syndrome PAIN MANAGEMENT NE W CONSULT with MARTY ESCALONA [facility] 08/18/2023 Last Documented On 4 5:05PM ; [facility] Lumbar spondylosis with radiculopathy PA IN MANAGEMENT NEW CONSULT with MARTYMOUSTAPHA ESCALONA [facility] 08/18/2023 Last Documented On 4 5:05PM ; [facility] Lumbar stenosis with neuroge terence claudication PAIN MANAGEMENT NEW CONSULT with MARTYMOUSTAPHA ESCALONA [facility] 08/18/2023 Last Documented On 4 5:05PM ; [facility] Myalgia PAIN MANAGEMENT NEW CONSULT with MARTYMOUSTAPHA ESCALONA [facility] 08/18/2023 Last Documented On 4 5:05PM ; [facility] Spinal enthesopathy of sacra l and sacrococcygeal region PAIN MANAGEMENT NEW CONSULT with MARTYMOUSTAPHA ESCALONA [facility] 08/18/2023 Last Documented On 4 5:05PM ; [facility] Instructions Includes: Instructions for all patient encounters Instructions to patient Intervention and counseling on cessation of tobacco use : Patient recieved smoking cessation handout Last Documented On 4 1:16PM ; [facility] Intervention and counseling on cessation of tobacco use : Patient recieved smoking cessation handout Last Documented On 4 11:13AM ; [facility] Medical Equipment - Implanted Devices Includes: Current and historical Devices No Medical Equipment Recorded Medications Includes: Current and historical Medications Current Medications (continue as prescribed) Cyclobenzaprine HCl 10 MG Oral Tablet 09/25/2023 Pro vider: Diagnosis: Last Documented On 09/25/2023 1:16PM By Ruth Ann YOON ; [facility] Vitamin D 50 MCG (1999) Oral Capsule 08/18/2023 Lashell pimentelder: Diagnosis: Last Documented On 4 11:12AM By Ruth Ann YOON ; [facility] Vitamin C Plus 1000 MG Oral Tablet 08/18/2023 Provid er: Diagnosis: Last Documented On 4 11:11AM By Ruth Ann YOON ; [facility] B Complex Oral Capsule 08/18/2023 Provider: Diagnosis: Last Documented On 4 11:10AM By Ruth Ann YOON ; [facility] Multivitamin Oral Tablet 08/18/2023 Provider: Diagnosis: Last Documented On 4 11:10AM By Ruth Ann YOON ; [facility] Estradiol 1 MG Oral Tablet 08/18/2023 Provider: Diagnosis: TWICE A WEEK Last Documented On 4 11:08AM By Ruth Ann YOON ; [facility] Benadryl Allergy 25 MG Oral Tablet 08/18/2023 Provid er: Diagnosis: Last Documented On 4 11:06AM By Ruth Ann YOON ; [facility] Tylenol Extra Strength 500 MG Oral Tablet 08/18/2023 Provider: Diagnosis: Last Documented On 4 11:07AM By Ruth Ann YOON ; [facility] Ibuprofen 200 MG Oral Tablet 08/18/2023 Provider : Diagnosis: Last Documented On 4 11:07AM By Ruth Ann YOON ; [facility] Adult Aspirin Regimen 81 MG Oral Tablet Delayed Releas e 08/18/2023 Provider: Diagnosis: Last Documented On 4 11:08AM By Ruth Ann YOON ; [facility] Fluticasone Propionate 50 MC G/ACT Nasal Suspension 07/22/2023 Provider: JULIA KAPLAN Diagnosis: Last Documented On 4 11:04AM By Ruth Ann YOON ; [facility] Albuterol Sulfate HFA 108 (9 0 Base) MCG/ACT Inhalation Aerosol Solution 07/22/2023 Provider: JULIA MEJIAS PA-C Diagnosis: Last Documented On 4 11:04AM By Ruth Ann YOON ; [facility] Levothyroxine Sodium 100 MCG Oral Tablet 07/12/2023 Provider: JULIA NANNEY PA-C Diagnosis: Last Documented On 4 11:04AM By Ruth Ann YOON ; [facility] Lisinopril 40 MG Oral Tablet 04/16/2023 Provider: JULIA MEJIAS PA-C Diagnosis: Last Documented On 4 11:05AM By Ruth Ann YOON ; [facility] Dicyclomine HCl 10 MG Oral Capsule 04/16/2023 Provid er: JULIA MEJIAS PA-C Diagnosis: Last Documented On 4 11:05AM By Ruth Ann YOON ; [facility] Gabapentin 300 MG Oral Capsule 04/15/2023 Provider: JULIA MEJIAS PA-C Diagnosis: Last Documented On 11:05AM By Ruth Ann YOON ; [facility] Medications Administered Includes: Administered Medications [...] 99 Last Documented: On 09/25/2023 1:47PM ; [facility] On 08/18/2023 1:59PM ; [facility] Results Includes: Results from 07/26/2023 through 07/25/2024 Drugs of abuse screen [facility] Ordered by MARTY ESCALONA [facility] on Collected: Reported: 08/18/2023 10:59 Last Documented On 10:59AM ; [facility] Reviewed on 08/18/2023; All test results are final unless otherwise noted. Internal QC Acceptable None Last Documented On 10:58AM ; [facility] Lot # & Exp. Date [id number] N (Normal) Last Documented On 10:58AM ; [facility] Amphetamines NEG (NEG) N (Normal) Last Documented On 4 10:58AM ; [facility] Barbiturates NEG (neg) N (Normal) Last Documented On 4 10:58AM ; [facility] Benzodiazepines NEG (neg) N (Normal) Last Documented On 4 10:58AM ; [facility] Cocaine NEG (neg) N (Normal) Last Documented On 4 10:58AM ; [facility] Ecstasy NEG (Neg) N (Normal) Last Documented On 4 10:58AM ; [facility] Methamphetamines NEG (neg) N (Normal) Last Documented On 4 10:58AM ; [facility] Methadone NEG (Neg) N (Normal) Last Documented On 4 10:58AM ; [facility] Morphine NEG (Neg) N (Normal) Last Documented On 4 10:58AM ; [facility] Oxycodone NEG (Neg) N (Normal) Last Documented On 4 10:58AM ; [facility] Phencyclidine NEG (NEG) N (Normal) Last Documented On 4 10:58AM ; [facility] TCA/Tricyclic Antidepressants NEG (neg) N (Normal) Last Documented On 4 10:58AM ; [facility] Cannabis NEG (neg) N (Normal) Last Documented On 4 10:58AM ; [facility] History of Present Illness History of Present Illness not supported for this document type No History of Present Illness Recorded Social History Description Last Updated Current smoker 09/25/2023 Last Documented On 4 1:47PM ; [facility] No consumption of alcohol 09/25/2023 Last Documented On 4 1:47PM ; [facility] Not using drugs 09/25/2023 Last Documented On 4 1:47PM ; [facility] Difficulty walking 08/18/2023 Last Documented On 4 5:05PM ; [facility] Smoking packs of cigarettes per day 1.5 08/18/2023 Last Documented On 4 5:05PM ; [facility] Smoking Status Unknown Procedures and Surgical History Includes: Procedures from 07/26/2023 through 07/25/2024 Procedures Code Diagnosis Performing Provider Service Location Service Date CLINIC VISIT T1015 Spinal stenosis, lumbar region with neurogenic claudication, Spinal enthesopathy, sacral and sacrococcygeal region, Other spondylosis with radiculopathy, lumbar region, Chronic pain syndrome MARTY ESCALONA [facility] 09/25/2023 Last Documented On 4 2:55PM ; [facility] MRI PELVIS W/O CONTRAST 78762 Spinal enthesopathy, sacral and sacrococcygeal region MARTYMOUSTAPHA ESCALONA [facility] 08/26/2023 Last Documented On 4 1:57PM ; [facility] CLINIC VISIT T1015 Spinal stenosis, lumbar region with neurogenic claudication, Spinal enthesopathy, sacral and sacrococcygeal region, Other spondylosis with radiculopathy, lumbar region, Chronic pain syndrome MARTYMOUSTAPHA ESCALONA [facility] 08/18/2023 Last Documented On 4 12:03PM ; [facility] DRUG TEST PRESEUMPT ANY NUMBER OF CLASSES-CUP DIPSTICK CARD (CLIA WAIVED) [id number] Chronic pain syndrome MARTYMOUSTAPHA ESCALONA [facility] 08/18/2023 Last Documented On 4 12:03PM ; [facility] Surgical History Last Updated No Pacemaker 09/25/2023 Last Documented On 4 1:47PM ; [facility] Medical History Includes: Medical History in patient's chart Description Last Updated No Pain Pump 09/25/2023 Last Documented On 4 1:47PM ; [facility] No Spinal cord stimulator 09/25/2023 Last Documented On 4 1:47PM ; [facility] [employer]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 Last Documented On 4 5:05PM ; [facility] CT/MRI [facility] 08/17 Last Documented On 4 5:05PM ; [facility] Currently wearing eyeglasses 08/18/2023 Last Documented On 4 5:05PM ; [facility] Moderate to severe pain 08/18/2023 Last Documented On 4 5:05PM ; [facility] Please list all illnesses/co nditions you have been diagnosed with: [place] hernia repaired, dmt2,copd, emphysema, hypothyroid, htn, 08/18/2023 Last Documented On 4 5:05PM ; [facility] Please list all surgeries: P ig skin graft for diaphragmatic, repair of torn diaphragmatic, hysterectomy, appendectomy iraj hip prosthesis, rt knee replacement. rt inguinal hernia repair, appe, abisai, neck surgeryx2 , rt carpule tunnel, 08/18/2023 Last Documented On 4 5:05PM ; [facility] X-rays [facility], [facility] 4 Last Documented On 4 5:05PM ; [facility] Family History Includes: Family History in patient's chart Description Last Updated Family history [use for free text] 09/24 Last Documented On 4 1:47PM ; [facility] Family history of Bleeding disorder 09/12 Last Documented On 4 1:47PM ; [facility] Family history of kidney disease 024 Last Documented On 4 1:47PM ; [facility] Family history of stroke/paralysis 09/24 Last Documented On 4 1:47PM ; [facility] Fraternal history of family history of i schemic heart disease 09/25/2023 Last Documented On 4 1:47PM ; [facility] Fraternal history of stroke/paralysis Last Documented On 4 1:47PM ; [facility] Maternal history of Arthritis 09/25/2023 Last Documented On 4 1:47PM ; [facility] Other family history , please specify: 0 09/25/2023 Last Documented On 4 1:47PM ; [facility] Paternal history of family history of is chemic heart disease 09/25/2023 Last Documented On 4 1:47PM ; [facility] Paternal history of family history of ki dney disease 09/25/2023 Last Documented On 4 1:47PM ; [facility] Paternal history of stroke/paralysis Last Documented On 4 1:47PM ; [facility] Reported family history of seizures 09/12 Last Documented On 4 1:47PM ; [facility] Sororal history of Arthritis 09/25/2023 Last Documented On 4 1:47PM ; [facility] Sororal history of Bleeding disorder Last Documented On 4 1:47PM ; [facility] Review of Systems Review of Systems not [...] Active Last Documented On 4 1:16PM ; [facility] traMADol HCl Allergy 08/18/2023 Active Last Documented On 4 1:16PM ; [facility] Sulfamethoxazole-Trimethoprim Allergy 08/18/2023 Active Last Documented On 4 1:16PM ; [facility] SHRIMP Allergy 08/18/2023 Active Last Documented On 4 1:16PM ; [facility] Penicillins Allergy 08/18/2023 Active Last Documented On 4 1:16PM ; [facility] NICKEL Allergy 08/18/2023 Active Last Documented On 4 1:16PM ; [facility] Lovenox Allergy 08/18/2023 Active Last Documented On 4 1:16PM ; [facility] Iodinated contrast media Allergy 08/18/2023 Active Last Documented On 4 1:16PM ; [facility] Amoxicillin Allergy 08/18/2023 Active Last Documented On 4 1:16PM ; [facility] Encounters Includes: Encounters from 07/26/2023 through 07/25/2024 Encounter Provider Location Date Check-In Time Check-Out Time Diagnosis [facility]:09[facility] 1:41PM Chronic Pain Syndrome,Spinal Stenosis Lumbar with Neurogenic Claudication,Spin al Enthesopathy of Sacral and Sacrococcygeal Region,Spondylosi s with Radiculopathy Lumbar Region,Myalgia , Other Site (M79.18) PAIN MANAGEMENT [facility] 10:49AM 11:46AM Chronic Pain Syndrome,Spinal Stenosis Lumbar with Neurogenic Claudication,Spon dylosis with Radiculopathy Lumbar Region,Myalgia , Other Site (M79.18),Spinal Enthesopathy of Sacral and Sacrococcygeal Region Insurance Includes: Active Insurance Policies Plan Name Member ID Group # Subscriber Relationship Effect [id number] Dates 1 - [facility] [id number] MILLIE WOOTEN Self Clinical Notes Includes: Signed Clinical Notes starting from 05/03/2022 * Progress note Date Encounter Last Documented by 09/25/2023 PAIN MANAGEMENT FOLLOW UP Last d ocumented on 09/25/2023; 1:47 PM, MARTY HIGUERA; [facility] Chief Complaint [...] Score: 30=60% Date:08/18/23 Past Medical/Surgical History 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 Tests: X-rays [facility], [facility] and CT/MRI [facility]. Current Medication - Adult Aspirin Regimen [...] 50% of this time spent in direct [id number] counseling and coordination of care. Results of [...] but may be subject to typographical or mine administrator supervisor errors. 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 Tests: X-rays [facility], [facility] and CT/MRI [facility]. Current Medication - Adult Aspirin Regimen [...] QC Acceptable Lot # & Exp. Date [id number], 2025-01-27 Normal Amphetamines NEG Normal Barbiturates NEG [...] X-ray/OUTSIDE XRAYS: [facility] Radiology @ [facility]/MRI: MRI Pelvis w/o contrast Instructions: Sacrum EndCited [...] 50% of this time spent in direct [id number] counseling and coordination of care. Results of [...] but may be subject to typographical or mine administrator supervisor errors. Verify all diagnoses, medications, dosages, and patient instructions with patient and/or the originator of this document. Health Reminders - Assess BMI satisfied 08/18/2023. - Assess Tobacco Use satisfied 08/18/2023. - Depression Screening satisfied 08/18/2023. - Follow up plan for Depression Screening satisfied 08/18/2023. - Smoking & Tobacco Cessation Intervention and Counseling satisfied 08/18/2023.
--- OUTSIDE RECORDS SUMMARY | 2024-07-25 17:49 | XMS_ITS | Continuity of Care Document ---
Author Organization [facility] Address [address] [place] [address] Phone Care Team Providers Care Tailer In Name Role Phone Camden YANES, Memo Unavailable Unavailable Advance Directives Directive Yes / No Effective Date File Name No Information Encounters Encounter Description Practice Location Reason(s) For Visit Diagnoses Date Provider Providers Copied on Encounter [facility], [address], [place], [place], [id number], tel:[phone] [facility] No Information Camden Hampton. [address], [place], [id number], [place]. tel:[phone] Referring Provider: Chicho Duke, [address], [place], [address]. tel:[phone] Family History Family Member Type Diagnosis Age At Onset No Information Payers Payer name Insurance type Covered democrat ID Authoralvaa connor(s) ERVINHER REYES [id number] Social History Type Description Quantity Date Captured [...]
[2024-07-25 17:59] VITALS: BP 119/82; PULSE 70; RESP 20; TEMP 36.6; O2SAT 98
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
== END 2024-07-25 19:20 | disposition home or self-care (01) ==
PROVIDERS: Emergency Provider Nurse Practitioner; PCP Physician Assistant
DX: S63.92XA Sprain of unspecified part of left wrist and hand, initial encounter (principal); X58.XXXA Exposure to other specified factors, initial encounter; I10 Essential (primary) hypertension; E03.9 Hypothyroidism, unspecified; F17.210 Nicotine dependence, cigarettes, uncomplicated
CPT/HCPCS: 29130; 73130; 99203; G0463